=== PATIENT | male | born 1970 | race Caucasian/White ===

== ENCOUNTER → 2017-08-28 16:36 | Outpatient (CLI) | payer OTHER, SELFPAY ==
[2017-08-28 18:01] LABS: Absolute Lymphocyte Count 2.66 X10^3/ul (0.83-4.51); Absolute Neutrophil Count 4.3 X10^3/uL (2.0-7.7); Basophil# 0.05 X10^3/uL; Basophil% 0.6 % (0-1); Eosinophil# 0.11 X10^3/uL; Eosinophils% 1.4 % (0-5); Hematocrit 47.5 % (40-54); Hemoglobin 16.7 g/dl (13.0-16.5); Lymphocyte # 2.66 X10^3/ul (4.0); Lymphocyte % 33.5 % (19-41); Mean Corp Hgb Conc 35.2 g/gl (32-36); Mean Corpuscular Hgb 31.5 pg (27.0-32.0); Mean Corpuscular Volume 89.5 fL (80-94); Mean Platelet Vol. 10.1 fl (6.2-12.0); Monocyte# 0.73 X10^3/uL; Monocyte% 9.2 % (0-10); Neutrophil # 4.34 X10^3/uL (2.7-7.7); Neutrophil % 54.8 % (47-70); POSITIVE COUNT NO; POSITIVE DIFFERENTIAL NO; POSITIVE MORPHOLOGY NO; Platelet Count 275 K/mm3 (150-450); RBC Distribution Width CV 12.5 % (11.6-14.6); RBC Distribution Width SD 41.1 fl (35.1-43.9); Red Blood Count 5.31 M/mm3 (4.6-6.2); White Blood Count 7.9 K/mm3 (4.4-11.0)
[2017-08-28 18:12] LABS: AST(SGOT) 41 U/L (15-37); Alanine Aminotransfer ALT/SGPT 73 U/L (16-61); Albumin, Serum 4.4 g/dL (3.2-5.0); Alkaline Phosphatase 63 U/L (45-117); Anion Gap 10 (5-15); BUN 13 mg/dL (7-18); BUN/Creat Ratio 14.2 RATIO (10-20); Bilirubin, Direct 0.14 mg/dL (0.00-0.30); Chloride 103 mmol/L (98-107); Creatinine, Serum 0.92 mg/dL (0.70-1.30); EST Glomerular Filtration Rate 95 mL/min (>60); Est Glom Filt Rate - Afr Amer 115 mL/min (>60); Globulin 3.5 g/dL (2.2-4.2); Glucose 95 mg/dL (74-106); Potassium 3.6 mmol/L (3.5-5.1); Protein, Total 7.9 g/dL (6.4-8.2); Sodium Level 137 mmol/L (136-145)
[2017-09-03 07:07] LABS: HEPATITIS B SURFACE AG Negative (Negative); QNTFERON TB Ag Minus Nil Value 0 IU/mL (.); QNTFERON TB Ag Value 0.05 IU/mL (.); QNTFERON TB Mitogen Value > 10.00 IU/mL (.); QNTFERON TB Nil Value 0.05 IU/mL (.)
[2017-09-03 09:50] LABS: Hep B Surface Antibodies Non Reactive (.); Hep C Antibodies <0.1 s/co ratio (0.0-0.9); Hepatitis B Core Ab Total Negative (Negative); QNTIFERON TB Gold Negative (Negative)
== END ==
PROVIDERS: Family Provider Family Medicine Geriatric Medicine; PCP Family Medicine Geriatric Medicine; Visit Provider Nurse Practitioner Family
DX: L40.0 Psoriasis vulgaris (principal); Z79.899 Other long term (current) drug therapy
CPT/HCPCS: 36415; 80048; 80076; 85025; 86480; 86704; 86706; 86803; 87340

== ENCOUNTER → 2017-11-18 15:26 | Outpatient (CLI) | payer OTHER, SELFPAY ==
[2017-11-18 18:00] LABS: Absolute Lymphocyte Count 3.76 X10^3/ul (0.83-4.51); Basophil# 0.02 X10^3/uL; Basophil% 0.2 % (0-1); Eosinophil# 0.13 X10^3/uL; Eosinophils% 1.3 % (0-5); Hematocrit 50.2 % (40-54); Hemoglobin 17.6 g/dl (13.0-16.5); Lymphocyte # 3.76 X10^3/ul (4.0); Lymphocyte % 37.9 % (19-41); Mean Corp Hgb Conc 35.1 g/gl (32-36); Mean Corpuscular Hgb 31.8 pg (27.0-32.0); Mean Corpuscular Volume 90.8 fL (80-94); Mean Platelet Vol. 10.3 fl (6.2-12.0); Monocyte# 0.89 X10^3/uL; Neutrophil # 5.02 X10^3/uL (2.7-7.7); Neutrophil % 50.7 % (47-70); Platelet Count 285 K/mm3 (150-450); RBC Distribution Width CV 12.6 % (11.6-14.6); RBC Distribution Width SD 41.9 fl (35.1-43.9); Red Blood Count 5.53 M/mm3 (4.6-6.2); White Blood Count 9.9 K/mm3 (4.4-11.0)
[2017-11-18 18:05] LABS: ALB/GLOB Ratio 1.2 RATIO (0.9-2.4); AST(SGOT) 52 U/L (15-37); Alanine Aminotransfer ALT/SGPT 115 U/L (16-61); Albumin, Serum 4.3 g/dL (3.2-5.0); Alkaline Phosphatase 58 U/L (45-117); Anion Gap 8 (5-15); BUN 19 mg/dL (7-18); BUN/Creat Ratio 17.8 RATIO (10-20); Calcium,Total 8.9 mg/dL (8.5-10.1); Chloride 100 mmol/L (98-107); Creatinine, Serum 1.07 mg/dL (0.70-1.30); EST Glomerular Filtration Rate 79 mL/min (>60); Est Glom Filt Rate - Afr Amer 96 mL/min (>60); Globulin 3.7 g/dL (2.2-4.2); Glucose 98 mg/dL (74-106); Sodium Level 134 mmol/L (136-145); T4 Free Direct 1.26 ng/dL (0.76-1.46); Thyroid Stim Hormone (TSH) 1.74 uIU/mL (0.358-3.74)
[2017-11-18 18:22] LABS: POSITIVE COUNT NO; POSITIVE DIFFERENTIAL NO; POSITIVE MORPHOLOGY NO
== END ==
PROVIDERS: Visit Provider Family Medicine
DX: I10 Essential (primary) hypertension (principal); L40.50 Arthropathic psoriasis, unspecified; E66.01 Morbid (severe) obesity due to excess calories
CPT/HCPCS: 36415; 80053; 84439; 84443; 85025

== ENCOUNTER → 2017-11-27 09:12 | Outpatient (CLI) | payer OTHER, SELFPAY ==
--- NOTE | 2017-11-27 09:14 | US_ITS ---
STUDY: ABDOMINAL ULTRASOUND - RIGHT UPPER QUADRANT REASON FOR VISIT: Male, 47 years old. Elevated liver function tests. TECHNIQUE: Ultrasound evaluation of the right upper quadrant was performed with real-time and static wagner-scale imaging. TECHNICAL QUALITY: Adequate. COMPARISON: None. FINDINGS: Liver: The liver is slightly enlarged and measures 19.6 cm. There is increased echogenicity consistent with fatty infiltration. The bile ducts are within normal limits. There is hepatic color flow. The direction of portal flow is hepatopetal. There is no demonstrated mass lesion. Gallbladder: Normal distended gallbladder. The gallbladder wall measures 3.0 mm. There is a negative sonographic Slaughter's sign. There is no pericholecystic fluid. There are no gallstones. Common Bile Duct (C.B.D.): The common bile duct is not visualized. Pancreas: There is nonvisualization of the pancreas. Right Kidney: Normal size of the right kidney. The right kidney measures 11.0 cm x 5.4 cm x 6.3 cm. Normal renal cortex. The right cortex measures 2.1 cm. There is no demonstrated renal mass or cyst. There is no right hydronephrosis. US/Liver IMPRESSION: Hepatomegaly and fatty infiltration of the liver. Electronically Signed: Benigno Randall MD at 14:34 EDT Tel [phone], Service support ,
== END ==
PROVIDERS: Family Provider Family Medicine; PCP Family Medicine; Visit Provider Family Medicine
DX: R74.8 Abnormal levels of other serum enzymes (principal)
CPT/HCPCS: 76705

== ENCOUNTER → 2018-01-02 20:13 | Outpatient (CLI) | payer OTHER, SELFPAY | PROVIDERS: Family Provider Family Medicine; PCP Family Medicine; Visit Provider Family Medicine | DX: R06.81 Apnea, not elsewhere classified (principal) | CPT/HCPCS: 95810 ==

== ENCOUNTER → 2018-02-20 20:04 | Outpatient (CLI) | payer OTHER, SELFPAY | PROVIDERS: Family Provider Family Medicine; PCP Family Medicine; Visit Provider Clinical Nurse Specialist Acute Care | DX: G47.33 Obstructive sleep apnea (adult) (pediatric) (principal) | CPT/HCPCS: 95811 ==

== ENCOUNTER → 2018-09-19 | Outpatient (CLI) | payer OTHER, SELFPAY ==
[2018-09-19 12:45] LABS: Absolute Lymphocyte Count 2.23 X10^3/ul (0.83-4.51); Absolute Neutrophil Count 3.1 X10^3/uL (2.0-7.7); Basophil# 0.03 X10^3/uL; Basophil% 0.5 % (0-1); Eosinophils% 1.6 % (0-5); Hematocrit 48.3 % (40-54); Hemoglobin 16.5 g/dl (13.0-16.5); Lymphocyte # 2.23 X10^3/ul (4.0); Lymphocyte % 36.4 % (19-41); Mean Corp Hgb Conc 34.2 g/gl (32-36); Mean Corpuscular Hgb 31.1 pg (27.0-32.0); Mean Corpuscular Volume 91.1 fL (80-94); Monocyte# 0.62 X10^3/uL; Monocyte% 10.1 % (0-10); Neutrophil # 3.11 X10^3/uL (2.7-7.7); Neutrophil % 50.7 % (47-70); Platelet Count 285 K/mm3 (150-450); RBC Distribution Width SD 43.4 fl (35.1-43.9); White Blood Count 6.1 K/mm3 (4.4-11.0)
[2018-09-19 12:51] LABS: POSITIVE COUNT NO; POSITIVE DIFFERENTIAL NO; POSITIVE MORPHOLOGY NO
[2018-09-19 13:32] LABS: ALB/GLOB Ratio 1.1 RATIO (0.9-2.4); AST(SGOT) 26 U/L (15-37); Alanine Aminotransfer ALT/SGPT 40 U/L (16-61); Albumin, Serum 4.1 g/dL (3.2-5.0); Alkaline Phosphatase 47 U/L (45-117); Anion Gap 8 (5-15); BUN 22 mg/dL (7-18); BUN/Creat Ratio 20.4 RATIO (10-20); Chloride 104 mmol/L (98-107); Creatinine, Serum 1.08 mg/dL (0.70-1.30); EST Glomerular Filtration Rate 78 mL/min (>60); Est Glom Filt Rate - Afr Amer 94 mL/min (>60); Globulin 3.8 g/dL (2.2-4.2); Glucose 110 mg/dL (74-106); Potassium 4.1 mmol/L (3.5-5.1); Protein, Total 7.9 g/dL (6.4-8.2); Sodium Level 138 mmol/L (136-145); Thyroid Stim Hormone (TSH) 0.69 uIU/mL (0.358-3.74)
== END | disposition home or self-care (01) ==
LOC: BFHLAB 09:00
PROVIDERS: Family Provider Family Medicine; PCP Family Medicine; Visit Provider Family Medicine
DX: R74.8 Abnormal levels of other serum enzymes (principal); I10 Essential (primary) hypertension
CPT/HCPCS: 36415; 80053; 84443; 85025

== ENCOUNTER → 2018-10-01 | Outpatient (CLI) | payer OTHER, SELFPAY ==
--- NOTE | 2018-10-01 13:18 | RAD_ITS ---
STUDY: X-RAY CHEST REASON FOR EXAM: Male, 48 years old. Persistent cough TECHNIQUE: PA and lateral views of the chest. COMPARISON: None. FINDINGS: The lungs are clear and expanded. There is no demonstrated pleural abnormality. Normal size heart. Normal mediastinum and jay. Normal visualized pulmonary arteries. Normal visualized aortic arch and descending thoracic aorta. Normal visualized thoracic spine. Normal visualized ribs, clavicles, and shoulders. There is no demonstrated abnormality of the visualized soft tissue structures of the upper abdomen. RAD/Chest PA and Lateral IMPRESSION: Normal x-ray examination of the chest. Electronically Signed: Maximus Marley MD at 17:24 EDT , Service support ,
[2018-10-04 20:07] LABS: QNTFERON TB Mitogen Value > 10.00 IU/mL (.); QNTFERON TB Nil Value 0.03 IU/mL (.); QNTFERON TB1+ Ag Value 0.03 IU/mL (.); QNTFERON TB2+ Ag Value 0.03 IU/mL (.)
[2018-10-05 14:03] LABS: QNTIFERON TB Positive Criteria Negative (Negative)
== END | disposition home or self-care (01) ==
LOC: MTLAB 13:08
PROVIDERS: Family Provider Family Medicine; PCP Family Medicine; Referring Provider Nurse Practitioner Family; Visit Provider Nurse Practitioner Family
DX: L40.0 Psoriasis vulgaris (principal); Z79.899 Other long term (current) drug therapy
CPT/HCPCS: 36415; 71046; 86480

== ENCOUNTER → 2018-12-02 | Outpatient (CLI) | payer OTHER, SELFPAY ==
[2018-12-02 12:33] LABS: Absolute Lymphocyte Count 1.91 X10^3/uL (0.83-4.51); Absolute Neutrophil Count 2.1 X10^3/uL (2.0-7.7); Basophil# 0.03 X10^3/uL; Basophil% 0.6 % (0-1); Eosinophil# 0.09 X10^3/uL; Eosinophils% 1.9 % (0-5); Hematocrit 46.8 % (40-54); Hemoglobin 15.7 g/dL (13.0-16.5); Lymphocyte # 1.91 X10^3/ul (4.0); Mean Corp Hgb Conc 33.5 g/dL (32-36); Mean Corpuscular Hgb 31.4 pg (27.0-32.0); Mean Corpuscular Volume 93.6 fL (80-94); Mean Platelet Vol. 10.2 fl (6.2-12.0); Monocyte# 0.65 X10^3/uL; Monocyte% 13.6 % (0-10); NRBC Flagged by Analyzer 0 % (0-5); Neutrophil # 2.07 X10^3/uL (2.7-7.7); Neutrophil % 43.5 % (47-70); Platelet Count 225 K/mm3 (150-450); RBC Distribution Width CV 12.6 % (11.6-14.6); RBC Distribution Width SD 43.2 fl (35.1-43.9); White Blood Count 4.8 K/mm3 (4.4-11.0)
[2018-12-02 12:45] LABS: Hemoglobin A1c 5.7 % (4.2-6.3)
[2018-12-02 12:48] LABS: ALB/GLOB Ratio 1.1 RATIO (0.9-2.4); AST(SGOT) 25 U/L (15-37); Alanine Aminotransfer ALT/SGPT 39 U/L (16-61); Albumin, Serum 4.1 g/dL (3.2-5.0); Alkaline Phosphatase 43 U/L (45-117); Anion Gap 6 (5-15); BUN 16 mg/dL (7-18); Chloride 102 mmol/L (98-107); Creatinine, Serum 1.07 mg/dL (0.70-1.30); EST Glomerular Filtration Rate 79 mL/min (>60); Est Glom Filt Rate - Afr Amer 95 mL/min (>60); Globulin 3.6 g/dL (2.2-4.2); Glucose 122 mg/dL (74-106); Potassium 3.8 mmol/L (3.5-5.1); Protein, Total 7.7 g/dL (6.4-8.2); Sodium Level 135 mmol/L (136-145)
== END | disposition home or self-care (01) ==
LOC: BFHLAB 09:48
PROVIDERS: Family Provider Family Medicine; PCP Family Medicine; Visit Provider Family Medicine
DX: R73.01 Impaired fasting glucose (principal); E78.5 Hyperlipidemia, unspecified; R74.8 Abnormal levels of other serum enzymes
CPT/HCPCS: 36415; 80053; 83036; 85025

== ENCOUNTER 2019-06-18 10:00 | Outpatient (RCR) | payer OTHER, SELFPAY ==
--- NOTE | 2019-05-04 09:46 | HP.PTEVAL ---
Patient's Visit Information WILL ARIAS is a 49 year old M referred to Physical Therapy by Markus Ferris MD with a diagnosis of L TKA 04/06/19. Date of Evaluation: 05/04/19 Physical Therapist: Nimesh Winn, DPT, OCS, CSCS - Visit Plan Frequency: 3x /Week Duration: 4-6 Weeks Plan: 3x/week for 4 weeks for: quad and HS stretch adn rollout, patellar mobs L, knee strengthening L and return to function activities and gait/steps. Ice as needed. - Subjective Findings: L TKA Apr 06 4 weeks ago. Went well. Pain level lately 1/10 much better than a few weeks ago. Mostly just stiff in am until get moving around. No AD needed at home, has cane out adn about. Used walker for one week. Had home PT for the last month until last Saturday. Sleeping well. Uncomfy at times with stiffness. Better than prior to surgery. Basic ADLs at home going OK with dressing, bath and toilet. Has not tried steps at home much without cane. Uses cane on steps only at home. 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 Back 2/10 if goes well. Enjoys riding motorcycle and wants to bowl and golf. - Pain L knee Pain Intensity (Out of 10): 0 Pain Intensity Range: 0, 1 Comment: pressure laterally. Has numbness - Objective Walks with and without cane (cane R UE) today I and with good heel strike adn push off adn knee flexion. Slight antalgia without cane after steps. Trasnfers are I with arms of chair. Steps are reciprocal with one rail and worse ecc control on L descending. -2 to 107 L knee AROM to start today vs 0-120 on R. 111 degrees after stretching today. Fair patellar mobility L. Incision healed well and no signs of redness heat or swelling excessively. strength L knee ext adn flexion 4- and R 4+. HS and quad tight B L knee 3 inches from buttock on L and 1 inch on R in prone. Sensation diminished lateral L knee to gross light touch. - Balance Scores Functional Gait Assessment Score: 27 % Disability: 10.0000 - Goals Goal 1:: Walk community without antalgia or need for cane. Goal Time Frame: 4-6 Weeks Goal 2:: Steps reciprocal without rail without signs of weakness. Goal Time Frame: 4-6 Weeks Goal 3:: 0-120 aROM L knee to make steps more comfortable Goal Time Frame: 4-6 Weeks Goal 4:: Pt ready to go back to work withou limitations Goal Time Frame: 4-6 Weeks Goal 5:: Plan to return to bowling. Goal Time Frame: 4-6 Weeks - Rehabilitation Potential Physical Therapy Diagnosis: s/p L TKA Rehabilitation Potential: Good - Anticipated Interventions Patient/Client Instruction: Educate patient on: Condition, Plan of Care For the Purpose of:: To decrease pain, To increase ROM, To improve muscle performance and motor function, To increase tolerance to activity/condition/position, To improve gait and locomotor functions Therapeutic Exercise to Include: Strength training, Flexibilty training, Gait and locomotor training, Passive ROM, Active ROM For the Purpose of:: To decrease pain, To increase ROM, To improve muscle performance and motor function, To increase tolerance to activity/condition/position, To improve ability of physical actions for home/community/work/leisure, To improve gait and locomotor functions Manual Therapy Techniques to Include: Mobilization, Soft tissue mobilization For the Purpose of:: To increase ROM Cryotherapy (ice pack, ice massage): Yes For the Purpose of:: To decrease swelling/inflammation Thank you for the opportunity to evaluate your patient. For Medicare and Medicare HMO plans, please review the plan of care and approve it. It will need to be FAXED BACK to us at [phone] for Medicare purposes. For Medicare only, by signing this I certify the plan of care. Please let me know if there are questions or concerns regarding this plan of care. Physician Signature: Date:
--- NOTE | 2019-06-18 10:12 | HP.PTDCSUM_ITS ---
HP - PT D/C Summary It has been my pleasure to treat WILL ARIAS under orders from Markus Ferris MD, for the diagnosis of L TKA 04/06/19 for a total of 16 visit(s). Discharge Date: 06/18/19 Please see the following information for a summary of their discharge status. - Subjective Subjective: No problem with pain, Sleeping OK. Exercises are going OK. Going to [employer] 3x/week and riding bike daily for 18+ minutes. Saw doctor Saturday and released to work next saturday. Activities at home are pretty normal. - Pain L knee Pain Intensity (Out of 10): 0 - Overall Improvement % Improvement: 90 - Objective Objective/Function: 0-122 PROM, 0-120 aROM L knee. Good patellar mobility. Normal walking and normal reciprocal steps without rail with some slight t ransient discomfort descending with L. OVERALL LOOKING GREAT. - Goals Goal 1:: Walk community without antalgia or need for cane. Goal Progress: Goal Met Goal 2:: Steps reciprocal without rail without signs of weakness. Goal Progress: Goal Met Goal 3:: 0-120 aROM L knee to make steps more comfortable Goal Progress: Goal Met Goal 4:: Pt ready to go back to work withou limitations Goal Progress: Goal Met Goal 5:: Plan to return to bowling. Goal Progress: thinks he could - Plan Plan: d/c - D/C Information If there are questions or concerns regarding this patient's physical therapy, please feel free to call me at [phone]. Thank you for the referral of this patient. Sincerely, Nimesh Winn, DPT, OCS, CSCS
== END 2019-06-18 19:00 | disposition home or self-care (01) ==
LOC: PT 10:00
PROVIDERS: Family Provider Family Medicine; PCP Family Medicine; Referring Provider Orthopaedic Surgery; Visit Provider Orthopaedic Surgery
DX: M17.12 Unilateral primary osteoarthritis, left knee (principal); Z96.652 Presence of left artificial knee joint
CPT/HCPCS: 97110; 97162; 97164; 97530

== ENCOUNTER → 2020-05-16 11:38 | Outpatient (CLI) | payer OTHER, SELFPAY ==
[2020-05-16 15:49] LABS: Absolute Lymphocyte Count 2.17 X10^3/uL (0.83-4.51); Absolute Neutrophil Count 3.3 X10^3/uL (2.0-7.7); Basophil# 0.06 X10^3/uL; Eosinophil# 0.09 X10^3/uL; Eosinophils% 1.5 % (0-5); Hemoglobin 16.8 g/dL (13.0-16.5); Lymphocyte # 2.17 X10^3/ul (4.0); Lymphocyte % 35.1 % (19-41); Mean Corp Hgb Conc 32.9 g/dL (32-36); Mean Corpuscular Hgb 30.9 pg (27.0-32.0); Mean Corpuscular Volume 93.9 fL (80-94); Mean Platelet Vol. 10.2 fl (6.2-12.0); Monocyte# 0.58 X10^3/uL; Monocyte% 9.4 % (0-10); NRBC Flagged by Analyzer 0 % (0-5); Neutrophil # 3.26 X10^3/uL (2.7-7.7); Neutrophil % 52.7 % (47-70); Platelet Count 294 K/mm3 (150-450); RBC Distribution Width CV 12.7 % (11.6-14.6); RBC Distribution Width SD 43.8 fl (35.1-43.9); Red Blood Count 5.43 M/mm3 (4.6-6.2); White Blood Count 6.2 K/mm3 (4.4-11.0)
[2020-05-16 16:10] LABS: ALB/GLOB Ratio 1.1 RATIO (0.9-2.4); AST(SGOT) 31 U/L (15-37); Alanine Aminotransfer ALT/SGPT 57 U/L (16-61); Albumin, Serum 4.2 g/dL (3.2-5.0); Alkaline Phosphatase 49 U/L (45-117); Anion Gap 5 (5-15); BUN 12 mg/dL (7-18); BUN/Creat Ratio 10.6 RATIO (10-20); Calcium,Total 9.2 mg/dL (8.5-10.1); Chloride 103 mmol/L (98-107); Cholesterol 187 mg/dL (200); Creatinine, Serum 1.13 mg/dL (0.70-1.30); EST Glomerular Filtration Rate 74 mL/min (>60); Est Glom Filt Rate - Afr Amer 89 mL/min (>60); Globulin 3.8 g/dL (2.2-4.2); Glucose 109 mg/dL (74-106); High Density Lipoprotein 36 mg/dL; Potassium 4.2 mmol/L (3.5-5.1); Sodium Level 138 mmol/L (136-145); Thyroid Stim Hormone (TSH) 0.72 uIU/mL (0.358-3.74); Triglycerides 200 mg/dL; Very Low Density Lipoprotein 40 mg/dL (5-40)
== END ==
PROVIDERS: PCP Family Medicine; Visit Provider Family Medicine
DX: R74.8 Abnormal levels of other serum enzymes (principal); I10 Essential (primary) hypertension; R73.01 Impaired fasting glucose; F32.9 Major depressive disorder, single episode, unspecified
CPT/HCPCS: 36415; 80053; 80061; 83036; 84443; 85025

== ENCOUNTER → 2021-09-13 | Outpatient (CLI) | payer OTHER, SELFPAY ==
--- NOTE | 2021-09-13 12:51 | STEWCON_ITS ---
Reason For Study: Chest Pain; HTN Stress Results Protocol: Digeo Protocol WITH DEFINITY Maximum Predicted HR: 171 bpm Target HR: 145 bpm % Maximum Predicted HR: 89 % DurationHeart Rate Stage (mm:ss) (bpm) BP Comment Baseline 58 118/88No Chest Pain; 4 ML Diluted Definity Diego Protocol Stage I 3:00 94 130/84No Chest Pain Diego Protocol Stage II 3:00 116 144/78No Chest Pain Diego Protocol Stage III 3:00 151 160/74No Chest Pain; Moderate Dyspnea Diego Protocol Stage IV 0:15 153 / No Chest Pain; Moderate Dyspnea Recovery 96 128/90No Chest Pain; No Dyspnea Stress Duration: 9:15 mm:ss Maximum Stress HR: 153 bpm METS: 10 Baseline Echocardiogram Findings Stress Echo Wall motion Data Resting WM Intermediate WM Stress WM Resting Wall Motion Wall Motion Stress All segments Normal. All segments Hyperkinetic. Ejection Fraction 60 %. Ejection Fraction 70 %. Stress Results Heart rate response: Technically adequate (greater than 85% predicted maximal heart rate response) Blood pressure response: Normal resting systolic blood pressure-appropriate response Cardiac rhythm: There was a rare PAC during recovery Functional capacity: Good Stopped secondary to: Dyspnea. EKG Data Baseline ECG: Sinus bradycardia. Peak exercise ECG: Somatic/motion artifact with no obvious ECG changes. Symptoms with Stress No report of chest discomfort during exercise or recovery. ECHO/Stress Test Echo W/Contrast Interpretation Summary Contrast injection performed Negative (adequate) stress echocardiogram Ordering Physician: Yahaira Villela Referring Physician: Yahaira Villela Performed By: Matt Marcelo RCS
== END | disposition home or self-care (01) ==
PROVIDERS: PCP Family Medicine; Visit Provider Family Medicine
DX: R07.9 Chest pain, unspecified (principal)
CPT/HCPCS: 93017; 93350; Q9957; A4216; C8928

== ENCOUNTER → 2022-02-23 | Outpatient (CLI) | payer OTHER, SELFPAY ==
[2022-02-23 12:13] LABS: Absolute Lymphocyte Count 1.92 X10^3/uL (0.83-4.51); Basophil# 0.06 X10^3/uL; Basophil% 1.1 % (0-1); Eosinophil# 0.08 X10^3/uL; Eosinophils% 1.4 % (0-5); Hematocrit 46.8 % (40-54); Hemoglobin 16.2 g/dL (13.0-16.5); Lymphocyte # 1.92 X10^3/ul (0.83-4.51); Lymphocyte % 33.9 % (19-41); Mean Corp Hgb Conc 34.6 g/dL (32-36); Mean Corpuscular Hgb 31.8 pg (27.0-32.0); Mean Corpuscular Volume 91.9 fL (80-94); Mean Platelet Vol. 9.9 fl (6.2-12.0); Monocyte# 0.63 X10^3/uL; Monocyte% 11.1 % (0-10); NRBC Flagged by Analyzer 0 % (0-5); Neutrophil # 2.95 X10^3/uL (2.7-7.7); Neutrophil % 52.1 % (47-70); Platelet Count 284 K/mm3 (150-450); RBC Distribution Width CV 12.1 % (11.6-14.6); RBC Distribution Width SD 41.3 fl (35.1-43.9); Red Blood Count 5.09 M/mm3 (4.6-6.2); White Blood Count 5.7 K/mm3 (4.4-11.0)
[2022-02-23 12:17] LABS: ALB/GLOB Ratio 1.1 RATIO (0.9-2.4); AST(SGOT) 39 U/L (15-37); Alanine Aminotransfer ALT/SGPT 72 U/L (16-61); Alkaline Phosphatase 57 U/L (45-117); Anion Gap 6 (5-15); BUN 15 mg/dL (7-18); BUN/Creat Ratio 15.5 RATIO (10-20); Calcium,Total 8.9 mg/dL (8.5-10.1); Chloride 102 mmol/L (98-107); Creatinine, Serum 0.97 mg/dL (0.70-1.30); EST Glomerular Filtration Rate 87 mL/min (>60); Est Glom Filt Rate - Afr Amer 106 mL/min (>60); Globulin 3.5 g/dL (2.2-4.2); Glucose 126 mg/dL (74-106); Protein, Total 7.5 g/dL (6.4-8.2); Sodium Level 135 mmol/L (136-145); Thyroid Stim Hormone (TSH) 0.72 uIU/mL (0.358-3.74)
== END | disposition home or self-care (01) ==
LOC: BFHLAB 09:31
PROVIDERS: PCP Family Medicine; Visit Provider Family Medicine
DX: I10 Essential (primary) hypertension (principal); R74.8 Abnormal levels of other serum enzymes; F41.9 Anxiety disorder, unspecified
CPT/HCPCS: 36415; 80053; 84443; 85025

== ENCOUNTER → 2022-05-28 | Outpatient (CLI) | payer OTHER, SELFPAY ==
[2022-05-28 12:16] LABS: Absolute Lymphocyte Count 2.09 X10^3/uL (0.83-4.51); Absolute Neutrophil Count 3.5 X10^3/uL (2.0-7.7); Basophil# 0.06 X10^3/uL; Basophil% 0.9 % (0-1); Eosinophil# 0.11 X10^3/uL; Eosinophils% 1.7 % (0-5); Hematocrit 46.7 % (40-54); Hemoglobin 16.2 g/dL (13.0-16.5); Lymphocyte # 2.09 X10^3/ul (0.83-4.51); Lymphocyte % 32.2 % (19-41); Mean Corp Hgb Conc 34.7 g/dL (32-36); Mean Corpuscular Hgb 31.7 pg (27.0-32.0); Mean Corpuscular Volume 91.4 fL (80-94); Mean Platelet Vol. 9.7 fl (6.2-12.0); Monocyte# 0.68 X10^3/uL; Monocyte% 10.5 % (0-10); NRBC Flagged by Analyzer 0 % (0-5); Neutrophil # 3.53 X10^3/uL (2.7-7.7); Neutrophil % 54.2 % (47-70); Platelet Count 308 K/mm3 (150-450); RBC Distribution Width CV 12.4 % (11.6-14.6); Red Blood Count 5.11 M/mm3 (4.6-6.2); White Blood Count 6.5 K/mm3 (4.4-11.0)
[2022-05-28 12:47] LABS: Hemoglobin A1c 5.9 % (3.8-5.6)
[2022-05-28 13:10] LABS: ALB/GLOB Ratio 1.1 RATIO (0.9-2.4); AST(SGOT) 27 U/L (15-37); Alanine Aminotransfer ALT/SGPT 58 U/L (16-61); Albumin, Serum 3.8 g/dL (3.2-5.0); Alkaline Phosphatase 62 U/L (45-117); Anion Gap 9 (5-15); BUN 16 mg/dL (7-18); BUN/Creat Ratio 16.7 RATIO (10-20); Calcium,Total 8.6 mg/dL (8.5-10.1); Chloride 101 mmol/L (98-107); Cholesterol 180 mg/dL (200); Creatinine, Serum 0.96 mg/dL (0.70-1.30); EST Glomerular Filtration Rate 88 mL/min (>60); Est Glom Filt Rate - Afr Amer 107 mL/min (>60); Globulin 3.5 g/dL (2.2-4.2); Glucose 137 mg/dL (74-106); High Density Lipoprotein 31 mg/dL; Potassium 4.3 mmol/L (3.5-5.1); Protein, Total 7.3 g/dL (6.4-8.2); Sodium Level 137 mmol/L (136-145); Thyroid Stim Hormone (TSH) 0.83 uIU/mL (0.358-3.74); Triglycerides 254 mg/dL; Very Low Density Lipoprotein 51 mg/dL (5-40)
== END | disposition home or self-care (01) ==
LOC: BFHLAB 08:24
PROVIDERS: PCP Family Medicine; Visit Provider Family Medicine
DX: R73.01 Impaired fasting glucose (principal); E66.01 Morbid (severe) obesity due to excess calories; I10 Essential (primary) hypertension; R74.8 Abnormal levels of other serum enzymes; E78.5 Hyperlipidemia, unspecified
CPT/HCPCS: 36415; 80053; 80061; 83036; 84443; 85025

== ENCOUNTER → 2022-09-19 | Outpatient (CLI) | payer OTHER, SELFPAY ==
[2022-09-19 12:52] LABS: Anion Gap 8 (5-15); BUN 12 mg/dL (7-18); BUN/Creat Ratio 13.1 RATIO (10-20); Calcium,Total 9.2 mg/dL (8.5-10.1); Chloride 105 mmol/L (98-107); Creatinine, Serum 0.92 mg/dL (0.70-1.30); EST Glomerular Filtration Rate 93 mL/min (>60); Est Glom Filt Rate - Afr Amer 112 mL/min (>60); Glucose 106 mg/dL (74-106); Potassium 4.4 mmol/L (3.5-5.1); Sodium Level 137 mmol/L (136-145)
== END | disposition home or self-care (01) ==
LOC: BIMLAB 09-26 17:26
PROVIDERS: PCP Internal Medicine; Referring Provider Internal Medicine; Visit Provider Internal Medicine
DX: Z00.00 Encounter for general adult medical examination without abnormal findings (principal); I10 Essential (primary) hypertension
CPT/HCPCS: 36415; 80048; 84153; G0103

== ENCOUNTER → 2023-01-04 | Outpatient (CLI) | payer OTHER, SELFPAY ==
[2023-01-04 12:50] LABS: Anion Gap 4 (5-15); BUN 15 mg/dL (7-18); BUN/Creat Ratio 14.9 RATIO (10-20); Calcium,Total 9.2 mg/dL (8.5-10.1); Chloride 103 mmol/L (98-107); Creatinine, Serum 1.01 mg/dL (0.70-1.30); EST Glomerular Filtration Rate 83 mL/min (>60); Est Glom Filt Rate - Afr Amer 100 mL/min (>60); Glucose 123 mg/dL (74-106); Potassium 3.9 mmol/L (3.5-5.1); Sodium Level 134 mmol/L (136-145)
== END | disposition home or self-care (01) ==
LOC: BIMLAB 10:48
PROVIDERS: PCP Internal Medicine; Visit Provider Internal Medicine
DX: I10 Essential (primary) hypertension (principal); R73.03 Prediabetes
CPT/HCPCS: 36415; 80048; 83036

== ENCOUNTER 2023-04-10 16:30 | Outpatient (RCR) | payer OTHER, SELFPAY ==
--- NOTE | 2023-02-28 18:08 | HP.PTEVAL ---
Patient's Visit Information Visit Information Visit Information: WILL ARIAS is a 53 year old M referred to Physical Therapy by FANY WEBB with a diagnosis of LUMBAR SPONDYLOSIS. Date of Evaluation: 02/28/23 Physical Therapist: Dinesh Jones, PT, Cert MDT, OCS Visit Plan Frequency: 2x /Week Duration: 4 Weeks Plan: PT INTERVENTIONS OUSMANE EX'S ,DLS ,POSTURAL EX'S ,MANUAL THERAPY ,ADN MODALTIES PRN Subjective Subjective: This 53 y/o male presents to physical therapy with lumbar pain. Patient has had lumbar pain for~ 5 years left side to LS. Patient seen [facility] recommended PT ,did lumbar spondylosis and hip DJD. During day better but as day goes away and end of day. Aggravating sitting harder chair ,standing extended distances , walking ,lifting heavier and bending . Alleviating factors rest and ice. Denies paresthesia/tingling-. Coughing/sneezing-. Bowel/bladder-. Patient sleeping good. Patient seen chiropractor 2 months ago. Tried massage. No Injury and no trauma. Patient pain affects QOL and function. Patient has h/o left TKR . Patient goal to have less pain. 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 Left Back: Pain Intensity (Out of 10): 5 Pain Intensity Range: 10 Objective Objective: POSTURE: mild forward posture GAIT: reciprocal pattern NEURO: denies paresthesia/tingling ,reflexes L3-4 ,L4-5,L5-S1 1/3 SYMMTRIES: align PLAPTION: TTP LEFT LS FLEXABILITY: hamstrings min tight LUMBAR ROM: flexion min loss ,extension min loss ,side glides min loss MMT: quads/hams 4/5 ,hip 4/5 ,ankle 5/5 Special Tests L/S Slump test left side: Negative L/S Slump test right side: Negative L/S Left Straight Leg Raise: Negative L/S Right Straight Leg Raise: Negative Lumbar Standing: Flexion - Mechanical Response: No effect Lumbar Standing: Flexion - Symptoms During Testing: Increases Lumbar Standing: Flexion - Symptoms After Testing: No worse Lumbar Standing: Extension - Mechanical Response: No effect Lumbar Standing: Extension - Symptoms During Testing: Increases Lumbar Standing: Extension - Symptoms After Testing: No worse Lumbar Standing: Right Side Glides - Mechanical Response: No effect Lumbar Standing: Right Side Wink - Symptoms During Testing: No effect Lumbar Standing: Right Side Wink - Symptoms After Testing: No effect Lumbar Standing: Left Side Wink - Mechanical Response: No effect Lumbar Standing: Left Side Wink - Symptoms During Testing: No effect Lumbar Standing: Left Side Wink - Symptoms After Testing: No effect Lumbar Lying: Flexion - Mechanical Response: No effect Lumbar Lying: Flexion - Symptoms During Testing: Increases Lumbar Lying: Flexion - Symptoms After Testing: No worse Lumbar Lying: Extension - Mechanical Response: Increases motion Lumbar Lying: Extension - Symptoms During Testing: Centralizing Lumbar Lying: Extension - Symptoms After Testing: Better Comments:: better Balance/Special Test Scores Oswestry Low Back Score: 24 Goals Goal 1:: Patient to be I with HEP for lumbar Goal Time Frame: 4-6 Weeks Goal 2:: Patient to improve posture/body mechanics 90% Goal Time Frame: 4-6 Weeks Goal 3:: Patient to demonstrate 50% improvement with decrease pain and improved function. Goal Time Frame: 4-6 Weeks Goal 4:: Patient to improve lumbar ROM for function of recovery for job demands Goal Time Frame: 4-6 Weeks Goal 5:: Patient to improve back oswestry score by 5 points to improve function Goal Time Frame: 4-6 Weeks Rehabilitation Potential Physical Therapy Diagnosis: This patient has possible lumbar derangement with disc asymmetrical with pain with motion and positioning along with bending and lifting thus will benefit from skilled PT Rehabilitation Potential: Good Anticipated Interventions Patient/Client Instruction: Educate patient on: Condition and Plan of Care For the Purpose of:: To decrease pain, To increase ROM, To improve muscle performance and motor function, To improve ability to perform ADL's, To increase tolerance to activity/condition/position, To improve ability of physical actions for home/community/work/leisure, To improve health of tissue, To decrease soft tissue restriction, To increase flexibility/ROM, To prevent re-injury and To improve tolerance to ADL's Therapeutic Exercise to Include: Strength training, Body mechanics, Postural training, Flexibilty training, Dynamic Lumbar Stabilization and Ousmane Exercises For the Purpose of:: To decrease pain, To increase ROM, To improve nutrient delivery to tissue, To increase oxygenation perfusion, To improve muscle performance and motor function, To increase tolerance to activity/condition/position, To improve ability of physical actions for home/community/work/leisure, To improve health of tissue and To decrease soft tissue restriction Manual Therapy Techniques to Include: Mobilization Comment: LUMBAR For the Purpose of:: To decrease pain, To increase ROM, To improve health of tissue, To decrease soft tissue restriction and To increase flexibility/ROM TENS: Yes IF ES: Yes Cryotherapy (ice pack, ice massage): Yes Thermo therapy (hot pack): Yes Ultrasound (thermal/non thermal): Yes For the Purpose of:: To decrease pain, To increase ROM, To improve health of tissue and To decrease soft tissue restriction Text: Thank you for the opportunity to evaluate your patient. For Medicare and Medicare HMO plans, please review the plan of care and approve it. It will need to be FAXED BACK to us at [phone] for Medicare purposes. For Medicare only, by signing this I certify the plan of care. Please let me know if there are questions or concerns regarding this plan of care. Physician Signature: Date:
--- NOTE | 2023-04-25 12:29 | HP.PTDCSUM ---
Discharge Summary D/C summary: It has been my pleasure to treat WILL ARIAS referred by FANY WEBB, with the diagnosis of LUMBAR SPONDYLOSIS for a total of 11 visit(s). Discharge Date: Please see the following information for a summary of their discharge status. Subjective Subjective: Plan to See Dr Saturday Patient was on feet extended periods left LS occasional lateral hip Pain Left Back: Pain Intensity (Out of 10): 4 Overall Improvement % Improvement: 60 Objective Objective/Function: POSTURE: forward posture hips/knees flexed ,asymmetries pelvis GAIT: reciprocal pattern with 2 point with cane mild foreward posture NEURO: denies paresthesia/tingling ,reflexes L3-4 ,L4-5 ,L5-S1 1/3 MMT: quads/hams /hip peak force ~ 5.2,ankle 4-/5 LUMABR ROM: flexion min/mod loss ,extension mod ,side glides min/mod loss all planes of motion FLEXABILITY: hamstrings mod loss THORACIC ROM: flexion mod loss loss ,extension severe loss ,rotation mod loss Goals Goal 1:: Patient to be I with HEP for lumbar Goal 2:: Patient to improve posture/body mechanics 90% Goal 3:: Patient to demonstrate 50% improvement with decrease pain and improved function. Goal 4:: Patient to improve lumbar ROM for function of recovery for job demands Goal 5:: Patient to improve back oswestry score by 5 points to improve function Plan Plan: RTD D/C Information d/c sentence: If there are questions or concerns regarding this patient's physical therapy, please feel free to call me at [phone]. Thank you for the referral of this patient. Sincerely, Dinesh Jones, PT, Cert MDT, OCS Balance/Gait/Functional tests Balance/Special Test Scores Oswestry Low Back Score: 24 Improvement % Improvement: 60
== END 2023-04-10 19:00 | disposition home or self-care (01) ==
LOC: PT 16:30
PROVIDERS: PCP Internal Medicine
DX: M47.816 Spondylosis without myelopathy or radiculopathy, lumbar region (principal)
CPT/HCPCS: 97014; 97110; 97162; 97530; G0283

== ENCOUNTER → 2023-05-02 | Outpatient (CLI) | payer OTHER, SELFPAY ==
--- OUTSIDE RECORDS SUMMARY | 2023-05-02 10:30 | XMS RPT_ITS | CCD ---
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 Name Role Phone Wayne Ramírez Primary Care Provider ANUPAMA HARDY MD Primary Care Physician [phone] DR RASHID MCCARTNEY DO Attending Unavailable ANUPAMA HARDY MD Primary Care Unavailable Medications Current Medications Medication Drug Class(es) Dates Sig (Normalized) Sig (Original) Humira (1 source) Tumor Necrosis Factor Dilshad Start: 10-31-2017 inject 1 dose by subcutaneous injection once Humira Dose : 40 mg =, Subcutaneous, Once, 0 Refill(s) Start Date: 10/31/17 Status: Ordered cephalexin 500 mg oral capsule (1 source) Cephalosporin Antibacterial Start: 10-17-2022 End: 10-22-2022 cephalexin 500 mg oral capsule Dose : 500 mg = 1 cap(s), Oral, TID, Take with a probiotic, X 5 day(s), # 15 cap(s), 0 Refill(s), 10/22/22 20:27:00 EDT, 127.3 Start Date: 10/17/22 Stop Date: 10/22/22 Status: Ordered hydroCHLOROthiazide 12.5 mg / lisinopril 20 mg oral tablet (1 source) Thiazide Diuretic, Angiotensin Converting Enzyme Inhibitor Start: 04-19-2019 hydrochlorothia zide-lisinopril 12.5 mg-20 mg oral tablet 0 Refill(s) Start Date: 04/19/19 Status: Ordered lisinopril 20 mg oral tablet (1 source) Angiotensin Converting Enzyme Inhibitor Start: 10-31-2017 lisinopril 20 mg oral tablet Dose : 20 mg = 1 tab(s), Oral, qDay, # 30 tab(s), 0 Refill(s) Start Date: 10/31/17 Status: Ordered modafinil 100 mg oral tablet (1 source) Sympathomimetic-lik e Agent Start: 04-19-2019 modafinil 100 mg oral tablet 0 Refill(s) Start Date: 04/19/19 Status: Ordered naproxen 500 mg oral tablet (1 source) Nonsteroidal Anti-inflammatory Drug Start: 10-31-2017 Naprosyn 500 mg oral tablet Dose : 500 mg = 1 tab(s), Oral, BID, PRN as needed for pain, # 20 tab(s), 0 Refill(s) Start Date: 10/31/17 Status: Ordered PARoxetine hydrochloride 20 mg oral tablet (1 source) Serotonin Reuptake Inhibitor Start: 04-19-2019 PARoxetine 20 mg oral tablet 0 Refill(s) Start Date: 04/19/19 Status: Ordered temazepam 15 mg oral capsule (1 source) Benzodiazepine Start: 04-19-2019 temazepam 15 mg oral capsule 0 Refill(s) Start Date: 04/19/19 Status: Ordered traMADol hydrochloride 50 mg oral tablet (1 source) Opioid Agonist Start: 04-19-2019 traMADol 50 mg oral tablet 0 Refill(s) Start Date: 04/19/19 Status: Ordered Problems Problem Classification Problem Date Documented Da te Episodic/Chronic Essential hypertension (1 source) Hypertensive disorder 10-31-2017 Chronic Osteoarthritis (1 source) Arthritis 10-31-2017 Chronic Results Test Name Value Interpretation Reference Range Facil ity Vital Signs Date Time Vital Sign Value Performing Clinician Loretta adams 10-17-2022 20:10-[address] Blood Pressure Cuff Size DR RASHID MCCARTNEY DO [facility] 10-17-2022 20:10-[address] RASHID MCCARTNEY DO [facility] 10-17-2022 20:10-[address] RASHID MCCARTNEY DO [facility] 10-17-2022 20:10-0400 Body height 180.[address] RASHID MCCARTNEY DO [facility] 10-17-2022 20:10-0400 Body temperature 98.78 [degF] DR RASHID MCCARTNEY DO [facility] 10-17-2022 20:10-0400 Body weight 127.[address] RASHID MCCARTNEY DO [facility] 10-17-2022 20:10-0400 Diastolic Blood Pressure Non-Invasive [address] RASHID MCCARTNEY DO [facility] 10-17-2022 20:10-0400 Heart rate 90 /min DR RASHID MCCARTNEY DO [facility] 10-17-2022 20:10-0400 Respiratory rate 16 /min DR RASHID MCCARTNEY DO [facility] 10-17-2022 20:10-0400 Systolic Blood Pressure Non-Invasive [address] RASHID MCCARTNEY DO [facility] Encounters Encounter Date Encounter Type Care Provider Facility Start: 10-17-2022 End: 10-17-2022 Emergency department patient visit DR RASHID MCCARTNEY DO Facility:[facility] Start: 10-17-2022 End: 10-17-2022 Emergency department patient visit DR RASHID MCCARTNEY DO [facility] Start: 03-13-2019 End: 03-13-2019 Subsequent hospital visit by physician Markus Ferris Work Phone: [facility] CT SCAN Procedures Date Procedure Procedure Detail Performing Clinician Start: 03-13-2019 Ct lower extremity w /o contrast material Markus Ferris Work Phone: Knee region structur e (body structure) DR RASHID MCCARTNEY DO Plan of Treatment Date Care Activity Detail Author Start: 12-28-2018 Influenza vaccination Flu vaccine (# 1) [place], [place] Start: 2012 Lipid screen Lipid screen [place], [place] Start: 01-01-1987 HIV screen HIV screen [place], [place] Start: 01-01-1983 DTaP/Tdap/Td vaccine (1 - Tdap) DTaP/Tdap/Td vaccine (1 - Tdap) [place], [place] Immunizations Immunization Date Immunization Notes Care Provider Flakito friend 10-17-2022 tetanus toxoid, redu brenna diphtheria toxoid, and acellular pertussis vaccine, adsorbed DR RASHID MCCARTNEY DO [facility] Payers Date Payer Category Payer Unknown [id number] 1970 Unknown [id number] Social History Date Type Detail Facility Tobacco smoking status NHIS Unknown if ev er smoked [place], [place] Sex Assigned At Not on file [place] Tobacco smoking status Never smo ked tobacco (finding) [facility] Sex Assigned At Sex [facility] Functional Status Date Assessment Result Facility 10-17-2022 Functional Status Activity Prosperobi gann Independent [facility] Mental Status Date Assessment Result Facility 10-17-2022 Mental Status Orientation Oriented x 4 [facility] Discharge instructions 10-17-2022 Note Date & Type Note Facility 10-17-2022 Hospital Discharg e instructions Patient Education 10/17/2022 20:27:22 Wound Care Wound Care Taking proper care of your wound will help it heal. Your healthcare provider may show you how to clean and dress the wound. He or she will also explain how to tell if the wound is healing normally. If you are unsure of how to take care of the wound, be sure to clarify what dressing to use and how often you should change the bandages. Here are the basic steps. A wound that's not healing normally may be dark in color or have white streaks. Wash your hands Tips for washing your hands include: Use liquid soap and lather for 2 minutes. Scrub between your fingers and under your nails. Rinse with warm water, keeping your fingers pointing down. Use a paper towel to dry your hands and to turn off the faucet. Remove the used dressing Here are suggestions for removing the dressing: If dressing changes cause you pain, be sure to take your pain medicine as prescribed by your healthcare provider 30 minutes before dressing changes. Set up your supplies. Put on disposable gloves if you re dressing a wound for someone else or your wound is infected. Loosen the tape by pulling gently toward the wound. Gently take off the old dressing. If the dressing is stuck to the wound, moisten it with saline (if available) or clean water. If you have a drain or tube in the wound, be careful not to pull on it. Remove the dressing 1 layer at a time and put it in a plastic bag. Seal the bag and put it in the trash. Remove your gloves. Inspect and dress the wound Check the wound carefully: Each time you change the dressing, check the wound carefully to be sure it s healing normally by making sure your wound appears to be pink and moist, and is free of infection. Wash your hands again. Put on a new pair of gloves. Clean and dress the wound as directed by your healthcare provider or nurse. Don't put anything in the wound that is not prescribed or directed by your healthcare provider. If you have a drain or tube, be careful not to pull on it. Make sure to secure the drain or tube as well. Put all unused supplies in a clean plastic bag. Seal the bag and store it in a clean, dry area between dressing changes. Be sure to wash your hands again. Call your healthcare provider Call your healthcare provider if you see any of the following signs of a problem: Bleeding that soaks the dressing Horton fluid weeping from the wound Increased drainage or drainage that is yellow, yellow-green, or foul-smelling Increased swelling or pain, or redness or swelling in the skin around the wound A change in the color of the wound, or if streaks develop in a direction away from the wound The area between any stitches opens up An increase in the size of the wound A fever of 100.4 F (38 C) or higher, or as directed by your healthcare provider Chills, increased fatigue, or a loss of appetite [id number] [employer]. [address] [place] [address]18. All rights reserved. This information is not intended as a substitute for professional medical care. Always follow your healthcare professional's instructions. Follow Up Care 10/17/2022 20:09:50 With:ANUPAMA HARDY MD Address: [address] [place] [id number]- When:2-4 days [facility] Clinical Note 10-17-2022 Note Date & Type Note Facility 10-17-2022 Note Discharge Instructions Thank you for allowing [facility] to assist you with your healthcare needs. The following is important discharge information regarding your hospital visit. Diagnosis from Today's Visit Finger injury - Minor What to Do Next Instructions from Your Care Team No qualifying data available. Post Acute Orders No qualifying data available. You Need to Schedule the Following Appointments Follow Up with ANUPAMA HARDY MD When Within 2-4 days Where: [address] [place] [id number]- Allergies NKA Medications Please ask your primary doctor or pharmacist before taking any other medication not listed, including over the counter drugs, herbal medications, vitamins and or supplements as they may interact with your home medications. What How Much When Instructions Last Dose New cephalexin (cephalexin 500 mg oral capsule) 1 cap by mouth Three (3) times a day Duration: 5 Days Take with a probiotic Printed Prescription Unchanged adalimumab (Humira) 40 Milligram Subcutaneous Once Unchanged hydrochlorothiazide-lisinopril (hydrochlorothiazide-lisinopril 12.5 mg-20 mg oral tablet) Unchanged lisinopril (lisinopril 20 mg oral tablet) 1 tab(s) by mouth Once a day Unchanged modafinil (modafinil 100 mg oral tablet) Unchanged naproxen (Naprosyn 500 mg oral tablet) 1 tab(s) by mouth Two (2) times a day as needed for as needed for pain Unchanged PARoxetine (PARoxetine 20 mg oral tablet) Unchanged temazepam (temazepam 15 mg oral capsule) Unchanged traMADol (traMADol 50 mg oral tablet) Please take this list to your next doctor s visit. Bring all medications you take, including over the counter medications, herbals and other supplements with you to your doctor s visit. Patients and families are reminded to discard old lists and to update any records with all medication providers or retail pharmacies. Medication Leaflets cephalexin (sef a KRYSTEN in) Keflex What is the most important information I should know about cephalexin? You should not use this medicine if you are allergic to cephalexin or to similar antibiotics, such as Ceftin, Cefzil, Omnicef, and others. Tell your doctor if you are allergic to any drugs, especially penicillins or other antibiotics. What is cephalexin? Cephalexin is a cephalosporin (SEF a low spor in) antibiotic that is used to treat bacterial infections of the lungs, ear, skin, bones, bladder, and kidneys. Cephalexin is used to treat infections in adults and children who are at least 1 year old. Cephalexin may also be used for purposes not listed in this medication guide. What should I discuss with my healthcare provider before taking cephalexin? You should not use this medicine if you are allergic to cephalexin or any other cephalosporin antibiotic (cefdinir, cefadroxil, cefoxitin, cefprozil, ceftriaxone, cefuroxime, Omnicef, and others). Tell your doctor if you have ever had: an allergy to any drug (especially penicillin); liver or kidney disease; or intestinal problems, such as colitis. The liquid form of cephalexin may contain sugar. This may affect you if you have diabetes. Tell your doctor if you are or breast-feeding. How should I take cephalexin? Follow all directions on your prescription label and read all medication guides or instruction sheets. Use the medicine exactly as directed. Do not use cephalexin to treat any condition that has not been checked by your doctor. Measure liquid medicine carefully. Use the dosing syringe provided, or use a medicine dose-measuring device (not a kitchen spoon). Use this medicine for the full prescribed length of time, even if your symptoms quickly improve. Skipping doses can increase your risk of infection that is resistant to medication. Cephalexin will not treat a viral infection such as the flu or a common cold. Do not share cephalexin with another person, even if they have the same symptoms you have. This medicine can affect the results of certain medical tests. Tell any doctor who treats you that you are using cephalexin. Store the tablets and capsules at room temperature away from moisture, heat, and light. Store the liquid medicine in the refrigerator. Throw away any unused liquid after 14 days. What happens if I miss a dose? Take the medicine as soon as you can, but skip the missed dose if it is almost time for your next dose. Do not take two doses at one time. What happens if I overdose? Seek emergency medical attention or call the Poison Help line at . Overdose symptoms may include nausea, vomiting, stomach pain, diarrhea, and blood in your urine. What should I avoid while taking cephalexin? Antibiotic medicines can cause diarrhea, which may be a sign of a new infection. If you have diarrhea that is watery or bloody, call your doctor before using anti-diarrhea medicine. What are the possible side effects of cephalexin? Get emergency medical help if you have signs of an allergic reaction (hives, difficult breathing, swelling in your face or throat) or a severe skin reaction (fever, sore throat, burning eyes, skin pain, red or purple skin rash with blistering and peeling). Call your doctor at once if you have: severe stomach pain, diarrhea that is watery or bloody (even if it occurs months after your last dose); unusual tiredness, feeling light-headed or short of breath; easy bruising, unusual bleeding, purple or red spots under your skin; a seizure; pale skin, cold hands and feet; yellowed skin, dark colored urine; fever, weakness; or pain in your side or lower back, painful urination. Common side effects may include: diarrhea; nausea, vomiting; indigestion, stomach pain; or vaginal itching or discharge. This is not a complete list of side effects and others may occur. Call your doctor for medical advice about side effects. You may report side effects to FDA at 3-309-FDZ-6961. What other drugs will affect cephalexin? Tell your doctor about all your other medicines, especially: metformin; or probenecid. This list is not complete. Other drugs may affect cephalexin, including prescription and wfno-wqr-gappyrs medicines, vitamins, and herbal products. Not all possible drug interactions are listed here. Where can I get more information? Your pharmacist can provide more information about cephalexin. Remember, keep this and all other medicines out of the reach of children, never share your medicines with others, and use this medication only for the indication prescribed. Every effort has been made to ensure that the information provided by [employer]. ('[employer]') is accurate, up-to-date, and complete, but no guarantee is made to that effect. Drug information contained herein may be time sensitive. [employer] information has been compiled for use by healthcare practitioners and consumers in the [place] and therefore [employer] does not warrant that uses outside of the [place] are appropriate, unless specifically indicated otherwise. [employer] drug information does not endorse drugs, diagnose patients or recommend therapy. [employer] drug information is an informational resource designed to assist licensed healthcare practitioners in caring for their patients and/or to serve consumers viewing this service as a supplement to, and not a substitute for, the expertise, skill, knowledge and judgment of healthcare practitioners. The absence of a warning for a given drug or drug combination in no way should be construed to indicate that the drug or drug combination is safe, effective or appropriate for any given patient. [employer] does not assume any responsibility for any aspect of healthcare administered with the aid of information [employer] provides. The information contained herein is not intended to cover all possible uses, directions, precautions, warnings, drug interactions, allergic reactions, or adverse effects. If you have questions about the drugs you are taking, check with your doctor, nurse or pharmacist. Copyright 5461-1086 [employer]. Version: 10.. Revision Date: 05/02/2020. Education Materials Wound Care Taking proper care of your wound will help it heal. Your healthcare provider may show you how to clean and dress the wound. He or she will also explain how to tell if the wound is healing normally. If you are unsure of how to take care of the wound, be sure to clarify what dressing to use and how often you should change the bandages. Here are the basic steps. A wound that's not healing normally may be dark in color or have white streaks. Wash your hands Tips for washing your hands include: Use liquid soap and lather for 2 minutes. Scrub between your fingers and under your nails. Rinse with warm water, keeping your fingers pointing down. Use a paper towel to dry your hands and to turn off the faucet. Remove the used dressing Here are suggestions for removing the dressing: If dressing changes cause you pain, be sure to take your pain medicine as prescribed by your healthcare provider 30 minutes before dressing changes. Set up your supplies. Put on disposable gloves if you re dressing a wound for someone else or your wound is infected. Loosen the tape by pulling gently toward the wound. Gently take off the old dressing. If the dressing is stuck to the wound, moisten it with saline (if available) or clean water. If you have a drain or tube in the wound, be careful not to pull on it. Remove the dressing 1 layer at a time and put it in a plastic bag. Seal the bag and put it in the trash. Remove your gloves. Inspect and dress the wound Check the wound carefully: Each time you change the dressing, check the wound carefully to be sure it s healing normally by making sure your wound appears to be pink and moist, and is free of infection. Wash your hands again. Put on a new pair of gloves. Clean and dress the wound as directed by your healthcare provider or nurse. Don't put anything in the wound that is not prescribed or directed by your healthcare provider. If you have a drain or tube, be careful not to pull on it. Make sure to secure the drain or tube as well. Put all unused supplies in a clean plastic bag. Seal the bag and store it in a clean, dry area between dressing changes. Be sure to wash your hands again. Call your healthcare provider Call your healthcare provider if you see any of the following signs of a problem: Bleeding that soaks the dressing Horton fluid weeping from the wound Increased drainage or drainage that is yellow, yellow-green, or foul-smelling Increased swelling or pain, or redness or swelling in the skin around the wound A change in the color of the wound, or if streaks develop in a direction away from the wound The area between any stitches opens up An increase in the size of the wound A fever of 100.4 F (38 C) or higher, or as directed by your healthcare provider Chills, increased fatigue, or a loss of appetite [id number] [employer]. [address] [place] [address]878. All rights reserved. This information is not intended as a substitute for professional medical care. Always follow your healthcare professional's instructions. Additional Information VACCINATE! IT SAVES LIVES! Members of the community who have not yet received the COVID-19 vaccine and would like to receive it can visit one of [facility] vaccine clinics. There are many vaccine clinic locations within the [facility]. For locations and available times, please visit www.gettheshot.coronavirus.[place].gov/. It is important to note that some COVID mobile vaccine clinics are held outdoors and may be canceled in rainy or stormy conditions. To learn more about pediatric vaccinations (ages 5-11), we invite you to visit the [facility] webpage. [email or web address]-Frequently-[email or web address] -Questions.html To learn more about the COVID-19 vaccine, we invite you to visit the CDC website for a list of frequently asked questions. https://www.cdc.gov/coronavirus/2019-n cov/vaccines/faq.html [facility] Patient Portal Access Instructions: Stay connected with your healthcare team and access your personal medical information anytime with the [facility] Patient Portal. If you would like a full copy of your medical records please contact the [facility] Medical Records Department Saturday through Saturday between 8a.m. and 4:30p.m. Please follow the directions below to access the portal: 1.Access the email account you provided upon registration to the hospital.2.Look for an invitation email from [facility].3.Open the email and access the invitation link: Accept Invitation to [facility].Fill in the required porter to create your account. Sign into [email or web address] with your username and password that you created in the above steps to stay up to date. You can then view a summary of results, a summary of your visits, and the ability to download your summaries to your computer or send the information securely to a physician. Remember that your healthcare information is confidential, so carefully consider who you will allow to register on the [facility] Patient Portal for access to your information. You can also access the [facility] Patient Portal on the [employer]park. Simply click on Health Records under Health Data and then click on the [facility] logo. HOW TO SAFELY DISPOSE OF PRESCRIPTION MEDICATIONS Please use one of the following methods to safely dispose of your unused medications. 1.Use a drug disposal kit: the drug disposal pouch allows you to safely discard your old and unused drugs. Ask your nurse to give you one when you are discharged.2.Visit a local take-back location: Many local pharmacies and police departments have programs that collect old and unwanted prescription drugs. Call your local pharmacy or go to http://[employer].Digital Guardian/8B9Sx3z to find one close to you.3.Make use of household items: Use cat litter or old coffee grounds to dispose medications if other options are not available. Mix your drugs with these household products, seal them in an airtight container and throw it into the garbage. Call [facility]: [phone] to be sure your drugs can be disposed of in this way. Some medicines may require a different approach.4.Never flush your medications down the toilet. IF YOU HAVE BEEN PRESCRIBED AN OPIOIDS FOR PAIN If you have been prescribed an opioid (such as hydrocodone, oxycodone or morphine), it is critical to understand the possible side effects and risks of opioid pain medications. Even when taken as directed, opioids can have several side effects including: Tolerance, meaning you might need to take more of a medication for the same pain relief. Nausea, vomiting and/or constipation. Sleepiness, dizziness, dry mouth, confusion, depression or itching. Physical dependence, meaning you have withdrawal symptoms when a medication is stopped ? this can develop within a few days. KNOW YOUR RESPONSIBILITIES It is important to know exactly how much and how often to take the opioid pain medications you are prescribed. Never take opioids in higher amounts or more often than prescribed. Do not combine opioids with alcohol or other drugs that cause drowsiness, such as benzodiazepines, also known as benzos, including diazepam and alprazolam, muscle relaxants or sleep aids. Never sell or share prescription opioids. This is illegal. Store opioids in a secure place and out of reach of others (including children, family, friends and visitors). The last page(s) of this document has been signed and retained as a CHART COPY Signatures Patient Education Materials Wound Care Medication Leaflets cephalexin My discharge plan and instructions have been reviewed and explained to me and I,WILL NICHOLS understand my current condition and have read and understand these discharge instructions. I have received a written copy of the plan/instructions. If I have questions, I am aware that I should contact my doctor. 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 Author Type: Nurse Practitioner Type: Progress Notes Filed: 08/28/2020 11:45 AM Note Text: Subjective HPI Will Nichols is a 50 year old male who presents with sinus congestion, drainage, and sinus pain and pressure. Has had symptoms for 10 days. Was using coricidin and zyrtec but has not had any improvement. He has had both COVID-19 vaccines. Review of Systems Constitutional: Negative for chills and fever. HENT: Positive for congestion and sinus pain. Negative for ear pain and sore throat. Respiratory: Negative for cough and shortness of breath. Cardiovascular: Negative. Musculoskeletal: Negative for myalgias. BP 132/84 Pulse 76 Temp 36.4 ?C (97.5 ?F) (Tympanic) Resp 16 Wt 129.7 kg (286 lb) SpO2 96% History reviewed. No pertinent past medical history. History reviewed. No pertinent surgical history. ALLERGIES Patient has no known allergies. MEDICATIONS PARoxetine (PAXIL) 20 mg tablet Take 20 mg by mouth daily at bedtime. lisinopril-hydroCHLOROthiazide (PRINZIDE,ZESTORETIC) 20-12.5 mg per tablet Take 1 tablet by mouth twice daily. LISINOPRIL ORAL Take by mouth. amoxicillin-clavulanic acid (AUGMENTIN) 875-125 mg per tablet Take 1 tablet by mouth twice daily for 10 days. temazepam (RESTORIL) 15 mg take 1 to 2 capsules by mouth at bedtime if needed apremilast (OTEZLA STARTER) 10 mg (4)-20 mg (4)-30 mg(19) DsPk Take by mouth. History reviewed. No pertinent family history. Social History Tobacco Use - Smoking status: Never Smoker - Smokeless tobacco: Never Used Substance Use Topics - Alcohol use: Not on file - Drug use: Not on file Objective Physical Exam Vitals and nursing note reviewed. HENT: Right Ear: Tympanic membrane, ear canal and external ear normal. Left Ear: Tympanic membrane, ear canal and external ear normal. Nose: Nasal tenderness, mucosal edema, congestion and rhinorrhea present. Rhinorrhea is purulent. Right Sinus: Maxillary sinus tenderness and frontal sinus tenderness present. Left Sinus: Maxillary sinus tenderness and frontal sinus tenderness present. Mouth/Throat: Pharynx: Uvula midline. No oropharyngeal exudate or posterior oropharyngeal erythema. Cardiovascular: Rate and Rhythm: Normal rate and regular rhythm. Heart sounds: Normal heart sounds. Pulmonary: Effort: Pulmonary effort is normal. No respiratory distress. Breath sounds: Normal breath sounds. No wheezing or rales. Musculoskeletal: Cervical back: Neck supple. Lymphadenopathy: Cervical: No cervical adenopathy. Skin: General: Skin is warm and dry. Findings: No erythema or rash. Neurological: Mental Status: He is alert. ASSESSMENT/PLAN: 1. Acute pansinusitis, recurrence not specified - ICD9: 461.8, ICD10: J01.40 - Will begin treatment with Augmentin 875 mg PO BID for 10 days - The patient should also be given flonase for the first 5-7 days of treatment. - Supportive care with plenty of fluids, rest, and analgesia prn. - AMOXICILLIN 875 MG-POTASSIUM CLAVULANATE 125 MG TABLET - Follow-up with your PCP in 3-5 days if symptoms have not improved or sooner if symptoms worsen - Discussed red flags and need for immediate medical evaluation if any occur. - Discussed supportive care treatment with fluids, rest and analgesia. 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 Advance Directives and Living Will Power of Case Technician Additional Source Comments (unrecognized sect ion and content) No Status Records FoundNo Status Records FoundNo Status Records Found INFORMATION SOURCE (unrecogn ized section and content) DATE CREATED AUTHOR AUTHOR'S ORGANIZ ATION 05/22/2021 [facility] DATE CREATED AUTHOR AUTHOR'S ORGANIZ ATION 10/26/2022 [facility] ([place]) Patient Care team informatio n (unrecognized section and content) Care Team Personnel Name: ANUPAMA HARDY MD Member Role: Primary Care Physician Address: Address: [address] [place] [id number] Name: RASHID MCCARTNEY DO Position: ED Physician Member Role: Attending Physician Address: Address: [facility] [address] [place], [place] [address] Care Team Related Persons Name: HARDIKYEHUDA HUJOSE Address: Home [address] [place] [address] FOR RECORDS PERTAINING TO PATIENTS WHO ARE OR HAVE BEEN ENROLLED IN A CHEMICAL DEPENDENCY/SUBSTANCEABUSE PROGRAM, SOME INFORMATION MAY BE OMITTED. This clinical summary was aggregated from multiple sources. Caution should be exercised in using it in the provision of clinical care. This summary normalizes information from multiple sources, and as a consequence, information in this document may materially change the coding, format and clinical context of patient data. In addition, data may be omitted in some cases. CLINICAL DECISIONS SHOULD BE BASED ON THE PRIMARY CLINICAL RECORDS. [facility] [employer] [facility]. provides no warranty or guarantee of the accuracy or completeness of information in this document.
[2023-05-02 12:32] LABS: Absolute Lymphocyte Count 2.07 X10^3/uL (0.83-4.51); Absolute Neutrophil Count 3.2 X10^3/uL (2.0-7.7); Basophil# 0.07 X10^3/uL; Basophil% 1.2 % (0-1); Eosinophils% 1.7 % (0-5); Hematocrit 48.1 % (40-54); Hemoglobin 16.1 g/dL (13.0-16.5); Lymphocyte # 2.07 X10^3/ul (0.83-4.51); Lymphocyte % 34.6 % (19-41); Mean Corp Hgb Conc 33.5 g/dL (32-36); Mean Corpuscular Hgb 31.1 pg (27.0-32.0); Mean Platelet Vol. 9.7 fl (6.2-12.0); Monocyte% 8.3 % (0-10); NRBC Flagged by Analyzer 0 % (0-5); Neutrophil % 53.4 % (47-70); Platelet Count 245 K/mm3 (150-450); RBC Distribution Width CV 12.8 % (11.6-14.6); RBC Distribution Width SD 43.9 fl (35.1-43.9); Red Blood Count 5.17 M/mm3 (4.6-6.2)
[2023-05-02 13:10] LABS: ALB/GLOB Ratio 1.1 RATIO (0.9-2.4); AST(SGOT) 36 U/L (15-37); Alanine Aminotransfer ALT/SGPT 63 U/L (16-61); Albumin, Serum 3.8 g/dL (3.2-5.0); Alkaline Phosphatase 58 U/L (45-117); Anion Gap 5 (5-15); BUN 16 mg/dL (7-18); BUN/Creat Ratio 15.8 RATIO (10-20); Calcium,Total 8.8 mg/dL (8.5-10.1); Chloride 103 mmol/L (98-107); Cholesterol 192 mg/dL (200); Creatinine, Serum 1.01 mg/dL (0.70-1.30); EST Glomerular Filtration Rate 83 mL/min (>60); Est Glom Filt Rate - Afr Amer 100 mL/min (>60); Globulin 3.6 g/dL (2.2-4.2); Glucose 138 mg/dL (74-106); High Density Lipoprotein 37 mg/dL; Potassium 4.4 mmol/L (3.5-5.1); Protein, Total 7.4 g/dL (6.4-8.2); Sodium Level 136 mmol/L (136-145); Triglycerides 161 mg/dL; Very Low Density Lipoprotein 32 mg/dL (5-40)
== END | disposition home or self-care (01) ==
LOC: BIMLAB 10:03
PROVIDERS: PCP Internal Medicine; Referring Provider Internal Medicine; Visit Provider Internal Medicine
DX: I10 Essential (primary) hypertension (principal)
CPT/HCPCS: 36415; 80053; 80061; 85025

== ENCOUNTER → 2023-10-01 | Outpatient (CLI) | payer OTHER, SELFPAY ==
[2023-10-01 12:29] LABS: Absolute Lymphocyte Count 1.58 X10^3/uL (0.83-4.51); Absolute Neutrophil Count 2.8 X10^3/uL (2.0-7.7); Basophil# 0.06 X10^3/uL; Basophil% 1.2 % (0-1); Eosinophil# 0.08 X10^3/uL; Eosinophils% 1.6 % (0-5); Hematocrit 45.5 % (40-54); Hemoglobin 15.6 g/dL (13.0-16.5); Lymphocyte # 1.58 X10^3/ul (0.83-4.51); Lymphocyte % 30.9 % (19-41); Mean Corp Hgb Conc 34.3 g/dL (32-36); Mean Corpuscular Volume 90.3 fL (80-94); Mean Platelet Vol. 10.1 fl (6.2-12.0); Monocyte# 0.54 X10^3/uL; Monocyte% 10.6 % (0-10); NRBC Flagged by Analyzer 0 % (0-5); Neutrophil # 2.83 X10^3/uL (2.7-7.7); Neutrophil % 55.3 % (47-70); Platelet Count 245 K/mm3 (150-450); RBC Distribution Width CV 12.6 % (11.6-14.6); RBC Distribution Width SD 41.9 fl (35.1-43.9); Red Blood Count 5.04 M/mm3 (4.6-6.2); White Blood Count 5.1 K/mm3 (4.4-11.0)
[2023-10-01 12:38] LABS: Vitamin B12 511 pg/mL (211-911)
[2023-10-01 13:33] LABS: ALB/GLOB Ratio 1.1 RATIO (0.9-2.4); AST(SGOT) 40 U/L (15-37); Alanine Aminotransfer ALT/SGPT 60 U/L (16-61); Alkaline Phosphatase 58 U/L (45-117); Anion Gap 9 (5-15); BUN 11 mg/dL (7-18); BUN/Creat Ratio 10.8 RATIO (10-20); Calcium,Total 9.4 mg/dL (8.5-10.1); Chloride 104 mmol/L (98-107); Creatinine, Serum 1.02 mg/dL (0.70-1.30); EST Glomerular Filtration Rate 82 mL/min (>60); Est Glom Filt Rate - Afr Amer 99 mL/min (>60); Globulin 3.6 g/dL (2.2-4.2); Glucose 147 mg/dL (74-106); Potassium 3.7 mmol/L (3.5-5.1); Protein, Total 7.6 g/dL (6.4-8.2); Sodium Level 134 mmol/L (136-145); T4 Free Direct 1.03 ng/dL (0.76-1.46); Thyroid Stim Hormone (TSH) 1.22 uIU/mL (0.358-3.74)
== END | disposition home or self-care (01) ==
LOC: BIMLAB 09:14
PROVIDERS: PCP Internal Medicine; Referring Provider Internal Medicine; Visit Provider Internal Medicine
DX: I10 Essential (primary) hypertension (principal); F41.9 Anxiety disorder, unspecified; F32.A Depression, unspecified
CPT/HCPCS: 36415; 80053; 82607; 84439; 84443; 85025

== ENCOUNTER → 2023-11-28 | Outpatient (CLI) | payer OTHER, SELFPAY | END | disposition home or self-care (01) | LOC: SL 11:46 | PROVIDERS: PCP Internal Medicine; Referring Provider Clinical Nurse Specialist Acute Care; Visit Provider Clinical Nurse Specialist Acute Care | DX: G47.33 Obstructive sleep apnea (adult) (pediatric) (principal) | CPT/HCPCS: 98960; G0463 ==

== ENCOUNTER → 2024-07-03 | Outpatient (CLI) | payer OTHER, SELFPAY ==
[2024-07-03 12:23] LABS: Absolute Neutrophil Count 3.2 X10^3/uL (2.0-7.7); Basophil# 0.05 X10^3/uL; Basophil% 0.9 % (0-1); Eosinophil# 0.13 X10^3/uL; Eosinophils% 2.4 % (0-5); Hematocrit 46.3 % (40-54); Hemoglobin 15.7 g/dL (13.0-16.5); Lymphocyte % 25.7 % (19-41); Mean Corp Hgb Conc 33.9 g/dL (32-36); Mean Corpuscular Hgb 31.3 pg (27.0-32.0); Mean Corpuscular Volume 92.2 fL (80-94); Mean Platelet Vol. 9.9 fl (6.2-12.0); Monocyte# 0.68 X10^3/uL; Monocyte% 12.5 % (0-10); NRBC Flagged by Analyzer 0 % (0-5); Neutrophil # 3.16 X10^3/uL (2.7-7.7); Neutrophil % 58.1 % (47-70); Platelet Count 286 K/mm3 (150-450); RBC Distribution Width CV 13.2 % (11.6-14.6); RBC Distribution Width SD 44.7 fl (35.1-43.9); Red Blood Count 5.02 M/mm3 (4.6-6.2); White Blood Count 5.4 K/mm3 (4.4-11.0)
[2024-07-03 12:54] LABS: ALB/GLOB Ratio 1.6 RATIO (0.9-2.4); AST(SGOT) 29 U/L (<=37); Alanine Aminotransfer ALT/SGPT 40 U/L (<=46); Albumin, Serum 4.4 g/dL (3.5-5.0); Alkaline Phosphatase 65 U/L (40-129); Anion Gap 10 (5-15); BUN 13 mg/dL (4-19); BUN/Creat Ratio 13.3 RATIO (10-20); Calcium,Total 9.4 mg/dL (7.6-11.0); Carbon Dioxide 26.3 mmol/L (21.0-32.0); Chloride 100 mmol/L (98-108); Creatinine, Serum 0.95 mg/dL (0.70-1.20); EST Glomerular Filtration Rate 97 (>60); Globulin 2.8 g/dL (2.2-4.2); Glucose 95 mg/dL (70-99); Potassium 3.7 mmol/L (3.3-5.1); Protein, Total 7.1 g/dL (5.9-8.4); Sodium Level 137 mmol/L (133-145); Total Bilirubin 0.26 mg/dL (0.00-1.30)
[2024-07-03 13:47] LABS: Cholesterol 193 mg/dL (<=200); High Density Lipoprotein 38 mg/dL; Low Density Lipoprotein Calc. 114 mg/dL; Triglycerides 204 mg/dL; Very Low Density Lipoprotein 41 mg/dL (5-40); cholesterol:hdl ratio screen 5.07
[2024-07-03 14:24] LABS: Microalbumin,Random Urine < 12.0 mg/L (NO RANGE EST.); Microalbumin:Creatinine Ratio UNABLE TO CALCULATE mg/g CRE
[2024-07-03 17:12] LABS: Hemoglobin A1c 5.6 % (<=5.6)
== END | disposition home or self-care (01) ==
LOC: BIMLAB 08:07
PROVIDERS: PCP Internal Medicine; Referring Provider Internal Medicine; Visit Provider Internal Medicine
DX: E11.69 Type 2 diabetes mellitus with other specified complication (principal); Z12.5 Encounter for screening for malignant neoplasm of prostate
CPT/HCPCS: 36415; 80053; 80061; 82043; 82570; 83036; 84153; 85025; G0103

== ENCOUNTER → 2025-01-04 | Outpatient (CLI) | payer OTHER, SELFPAY ==
[2025-01-04 12:08] LABS: Hematocrit 47.5 % (40-54); Hemoglobin 16.1 g/dL (13.0-16.5); Immature Granulocytes Count 0.010 X10^3/uL (0.0-0.0); Mean Corp Hgb Conc 33.9 g/dL (32-36); Mean Corpuscular Volume 93.1 fL (80-94); Mean Platelet Vol. 9.3 fl (6.2-12.0); NRBC Flagged by Analyzer 0 % (0-5); Platelet Count 278 K/mm3 (150-450); RBC Distribution Width CV 13.3 % (11.6-14.6); RBC Distribution Width SD 45.6 fl (35.1-43.9); Red Blood Count 5.10 M/mm3 (4.6-6.2); White Blood Count 5.4 K/mm3 (4.4-11.0)
[2025-01-04 13:05] LABS: AST(SGOT) 26 U/L (<=37); Alanine Aminotransfer ALT/SGPT 24 U/L (<=46); Albumin, Serum 4.3 g/dL (3.5-5.0); Alkaline Phosphatase 49 U/L (40-129); Anion Gap 10 (5-15); BUN 11 mg/dL (4-19); BUN/Creat Ratio 12.3 RATIO (10-20); Calcium,Total 9.6 mg/dL (7.6-11.0); Carbon Dioxide 27.6 mmol/L (21.0-32.0); Chloride 99 mmol/L (98-108); Globulin 2.8 g/dL (2.2-4.2); Glucose 102 mg/dL (70-99); Potassium 5.1 mmol/L (3.3-5.1)
== END | disposition home or self-care (01) ==
LOC: BIMLAB 08:06
PROVIDERS: PCP Internal Medicine; Referring Provider Internal Medicine; Visit Provider Internal Medicine
DX: F41.9 Anxiety disorder, unspecified (principal); E11.69 Type 2 diabetes mellitus with other specified complication; F32.A Depression, unspecified
CPT/HCPCS: 36415; 80053; 83036; 84439; 84443; 85025

== ENCOUNTER → 2025-02-05 | Outpatient (CLI) | payer OTHER, SELFPAY ==
--- NOTE | 2025-02-05 13:15 | CT_ITS ---
PROCEDURE: SPINE LUMBAR WITHOUT CONTRAST 02/05/2025 REASON FOR EXAM: LOW BACK PAINFUL LUMP TECHNIQUE: Procedure Code: CTSPL Modality: CT Procedure: SPINE LUMBAR WITHOUT CONTRAST Coronal and Sagittal reconstruction series were provided. One or more dose reduction techniques were used (e.g., Automated exposure control, adjustment of the mA and/or kV according to patient size, use of iterative reconstruction technique COMPARISON: None. RADIATION DOSE SUMMARY: CTDlvol: 27.34 mGy DLP: 1177.09 mGycm FINDINGS: Vertebrae: No acute bony abnormalities. Alignment: Normal. L1-2: Disc bulge. Facet joint arthropathy. Mild bilateral foramina stenosis. Mild canal stenosis. L2-3: Disc bulge. Facet joint arthropathy. Mild bilateral foramina stenosis. Moderate canal stenosis. L3-4: Disc bulge. Facet joint arthropathy. Moderate bilateral foramina stenosis. Moderate canal stenosis. L4-5: Disc bulge. Facet joint arthropathy. Moderate bilateral foramina stenosis. No canal stenosis. L5-S1: No foraminal or canal stenosis. Sacrum: No acute bony abnormalities. CT/Spine Lumbar without Contrast IMPRESSION: Moderate canal stenosis and moderate bilateral foramina stenosis at L3-L4. Moderate canal stenosis at L2-L3. Moderate bilateral foramina stenosis at L4-L5. Reading Location: [id number]
== END | disposition home or self-care (01) ==
LOC: CT 13:00
PROVIDERS: PCP Internal Medicine; Referring Provider Nurse Practitioner Family; Visit Provider Nurse Practitioner Family
DX: R22.2 Localized swelling, mass and lump, trunk (principal)
CPT/HCPCS: 72131

== ENCOUNTER → 2025-03-15 | Outpatient (CLI) | payer OTHER, SELFPAY ==
--- NOTE | 2025-03-15 07:54 | MRI_ITS ---
PROCEDURE: PELVIS W/WO CONTRAST, 03/15/2025 REASON FOR EXAM: CHECK MASS TECHNIQUE: Multisequence multiplanar MR of the pelvis was performed with and without IV contrast. IV contrast: 20 mL Clariscan COMPARISON: 02/05/2025 FINDINGS: Visualized bowel: Suboptimally evaluated by MRI; no gross bowel dilatation. Lymph nodes: Unremarkable. Vasculature: Unremarkable. Peritoneum: Unremarkable. Bladder: Underdistended and suboptimally evaluated, grossly unremarkable. Reproductive Organs: Nonspecific T1 bright/T2 dark probably hemorrhagic or proteinaceous material in the LEFT seminal vesicle. Body Wall: Two vitamin-E capsules tin a region of clinical concern along the RIGHT posteromedial paraspinal soft tissues at the level of L3-L4 and S2. No discrete or measurable lesion is evident in this region. Tiny fat containing umbilical hernia. Musculoskeletal: Degenerative findings of the spine better depicted on recent dedicated lumbar spinal MRI. Other: Partially imaged mild nonspecific symmetric perinephric stranding. MRI/Pelvis W/WO Contrast IMPRESSION: 1. No discrete or measurable mass evident by MRI in the RIGHT posteromedial par aspinal region of clinical concern. 2. Additional description as above. Reading Location: [id number]
--- OUTSIDE RECORDS SUMMARY | 2025-03-15 08:16 | XMS RPT_ITS | CCD ---
Author Organization [facility] Care Team Providers Care Durable Medical Equipment Technician Name Role Phone Wayne Ramírez Primary Care Provider Dr. Wayne Ramírez Primary Care Provider Dr. Guerrero Ramires Attending Provider ANTONY NGUYEN, ANUPMAA Martin Primary Care Physician DR RASHID MCCARTNEY DO Attending Unavailable ANTONY NGUYEN, ANUPAMA Martin Primary Care Unavailable Dr. Wayne Ramírez Referring Provider Dr. Nito Canseco Attending Provider Dr. Hardeep Schafer Primary Care Provider Dr. Hardeep Schafer Referring Provider Dr. Nito Canseco Primary Care Provider Dr. Nito Canseco Attending Provider [phone] Dr. Nito Canseco Referring Provider [phone])2 Dr. Nito Canseco Primary Care Provider [phone] Dr. Nito Canseco Attending Provider [phone])2 Dr. Nito Canseco Referring Provider [phone])2 SAMMY Molina Attending Provider Dr. Nito Canseco Primary Care Provider Dr. Nito Canseco Referring Provider [phone])2 Dr. Nito Canseco Attending Provider [phone])2 Ajith NGUYEN, Dr. Beauchamp Primary Care Provider Ajith NGUYEN, Dr. Beauchamp Attending Provider 1(33 0) Ajith NGUYEN, Dr. Beauchamp Referring Provider 1(33 0) Ajith NGUYEN, Dr. Beauchamp Primary Care Provider Ajith NGUYEN, Dr. Beauchamp Attending Provider 1(33 0) Ajith NGUYEN, Dr. Beauchamp Referring Provider 1(33 0) Corbin Molina Attending Provider [phone] Ajith NGUYEN, Dr. Beauchamp Primary Care Provider Ajith NGUYEN, Dr. Beauchamp Referring Provider 1(33 0) Ajith NGUYEN, Dr. Beauchamp Attending Provider 1(33 0) Ungerer CHARHOUSE WORKER-CPauline Attending Provider [phone])2 Ajith NGUYEN, Dr. Beauchamp Primary Care Physician Corbin Molina Attending Physician Ajith NGUYEN, Dr. Beauchamp Attending Physician 1(3 30) Ungerer CHARHOUSE WORKER-CPauline Attending Physician MelvinrPauline Attending Unavailable Oleghe, Efewongbe Referring Unavailable Oleghe, Efewongbe Primary Care Unavailable Oleghe, Efewongbe Attending Unavailable Oleghe, Efewongbe Referring Unavailable Oleghe, Efewongbe Primary Care Unavailable Oleghe, Efewongbe Referring Unavailable Oleghe, Efewongbe Primary Care Unavailable Robotham, Marichuy Attending Unavailable Oleghe, Efewongbe Attending Unavailable Oleghe, Efewongbe Referring Unavailable Oleghe, Efewongbe Primary Care Unavailable Ungerer, Pauline Attending Unavailable Ungerer, Pauline Referring Unavailable Oleghe, Efewongbe Primary Care Unavailable Oleghe, Efewongbe Primary Care Unavailable Robotham, Marichuy Attending Unavailable Robotham, Marichuy Referring Unavailable Oleghe, Efewongbe Primary Care Unavailable Oleghe, Efewongbe Attending Unavailable Oleghe, Efewongbe Referring Unavailable Oleghe, Efewongbe Primary Care Unavailable Oleghe, Efewongbe Attending Unavailable Oleghe, Efewongbe Referring Unavailable Oleghe, Efewongbe Primary Care Unavailable Oleghe, Efewongbe Attending Unavailable Oleghe, Efewongbe Referring Unavailable Oleghe, Efewongbe Primary Care Unavailable Oleghe, Efewongbe Attending Unavailable Oleghe, Efewongbe Referring Unavailable Corbin Molina Attending Unavailable Oleghe, Efewongbe Referring Unavailable Oleghe, Efewongbe Primary Care Unavailable Oleghe, Efewongbe Attending Unavailable Oleghe, Efewongbe Referring Unavailable Oleghe, Efewongbe Primary Care Unavailable Medications Current Medications Medication Drug Class(es) Dates Sig (Normalized) Sig (Original) Humira (1 source) Tumor Necrosis Factor Dilshad Start: 10-31-2017 inject 1 dose by subcutaneous injection once Humira Dose : 40 mg =, Subcutaneous, Once, 0 Refill(s) Start Date: 10/31/17 Status: Ordered busPIRone hydrochloride 7.5 mg oral tablet (1 source) Start: 01-11-2025 take 1 tablet by mouth twice daily cephalexin 500 mg oral capsule (1 source) Cephalosporin Antibacterial Start: 10-17-2022 End: 10-22-2022 cephalexin 500 mg oral capsule Dose : 500 mg = 1 cap(s), Oral, TID, Take with a probiotic, X 5 day(s), # 15 cap(s), 0 Refill(s), 10/22/22 20:27:00 EDT, 127.3 Start Date: 10/17/22 Stop Date: 10/22/22 Status: Ordered cyclobenzaprine hydrochloride 10 mg oral tablet (2 sources) Muscle Relaxant Start: 12-17-2024 take 1 tablet by mouth at bedtime as needed for muscle spasms DULoxetine 30 mg delayed release oral capsule (20 sources) Serotonin and Norepinephrine Reuptake Inhibitor Start: 09-30-2023 End: 10-12-2024 take 3 capsules by mouth once daily Start: 07-11-2022 End: 09-30-2023 take 1 capsule by mouth twice daily Duloxetine 30 mg capsule,delayed release(DR/EC) Discontinued 30 mg PO TWICE A DAY 180 January 04, 2023 10:43am September 30, 2023 11:22am hydrOXYzine hydrochloride 25 mg oral tablet (1 source) Antihistamine Start: 12-25-2024 take 1 tablet by mouth twice daily as needed for anxiety lisinopril 20 mg oral tablet (1 source) Angiotensin Converting Enzyme Inhibitor Start: 10-31-2017 lisinopril 20 mg oral tablet Dose : 20 mg = 1 tab(s), Oral, qDay, # 30 tab(s), 0 Refill(s) Start Date: 10/31/17 Status: Ordered modafinil 100 mg oral tablet (1 source) Sympathomimetic-lik e Agent Start: 04-19-2019 modafinil 100 mg oral tablet 0 Refill(s) Start Date: 04/19/19 Status: Ordered Multivitamin preparation (4 sources) Start: 07-11-2022 take 1 tablet by mouth once daily Multivitamin Active 1 TABLET PO DAILY July 10, 2022 11:00pm Start: 07-11-2022 take 1 tablet by danielle th once daily Multivitamin Active 1 TABLET PO DAILY July 11, 2022 12:00am Multivitamin tablet (6 sources) Start: 07-11-2022 Start: 07-11-2022 Multivitamin t ablet Active 1 {tbl} PO DAILY July 11, 2022 12:00am naproxen 500 mg oral tablet (1 source) [...] 0 Refill(s) Start Date: 04/19/19 Status: Ordered predniSONE 20 mg oral tablet (2 sources) Start: 12-17-2024 take 3 tablets by mouth once daily, then take 2 tablets by mouth once daily, then take 1 tablet by mouth once daily, then take 0.5 tablet by mouth once daily Tirzepatide (2 sources) Start: 10-28-2024 Start: 02-24-2024 End: 10-28-2024 Tirzepatide 5 mg/0.5 mL pen injector Discontinued 5 mg SC EVERY WEEK 6.5 90 February 24, 2024 12:27pm October 28, 2024 2:32pm for 4 weeks Tirzepatide 5 mg/0.5 mL pen injector (8 sources) Start: 10-28-2024 Tirzepatide 5 mg/0.5 mL pen injector Active 5 mg SC EVERY WEEK 6.5 90 October 28, 2024 2:30pm Start: 02-24-2024 End: 10-28-2024 Tirzepatide 5 mg/0.5 mL pen injector Discontinued 5 mg SC EVERY WEEK 6.5 90 February 24, 2024 12:27pm October 28, 2024 2:32pm for 4 weeks Start: 02-24-2024 Tirzepatide 5 mg/0.5 mL pen injector Active 5 mg SC EVERY WEEK 6.5 90 February 24, 2024 12:27pm for 4 weeks traMADol hydrochloride 50 mg oral tablet (1 source) Opioid Agonist Start: 04-19-2019 traMADol 50 mg oral tablet 0 Refill(s) Start Date: 04/19/19 Status: Ordered Completed/Discontinued Medications Medication Drug Class(es) Dates Sig (Normalized) Sig (Original) amLODIPine 5 mg oral tablet (20 sources) Dihydropyridine Calcium Channel Dilshad Start: 3 End: 5 take 1 tablet by mouth once daily Amlodipine 5 mg tablet Discontinued 5 mg PO DAILY January 23, 2024 7:05pm October 28, 2024 2:32pm On Hold: Hold due to concern for hypotension amoxicillin 875 mg oral tablet (5 sources) Penicillin-class Antibacterial Start: 5 End: 5 take 1 tablet by mouth twice daily Amoxicillin 875 mg tablet Discontinued 875 mg PO TWICE A DAY September 30, 2024 12:00am December 17, 2024 1:01pm cariprazine 1.5 mg oral capsule (1 source) Atypical Antipsychotic Start: 5 End: 5 take 1 capsule by mouth once daily Cariprazine (Vraylar) 1.5 mg capsule Discontinued 1.5 mg PO daily 30 3 December 25, 2024 12:00am January 11, 2025 10:00am dexamethasone 6 mg oral tablet (6 sources) Corticosteroid Start: 4 End: 4 take 1 tablet by mouth once daily Dexamethasone 6 mg tablet Discontinued 6 mg PO DAILY 5 0 January 03, 2024 12:00am January 23, 2024 5:41pm hydroCHLOROthiazide 12.5 mg / lisinopril 20 mg oral tablet (20 sources) Thiazide Diuretic, Angiotensin Converting Enzyme Inhibitor Start: 3 End: 5 Lisinopril-Hydroc hlorothiazide 20-12.5 mg tablet Discontinued 1 {tbl} PO TWICE A DAY 180 December 21, 2024 8:43pm December 22, 2024 9:42am Start: 07-11-2022 End: 01-04-2023 take 1 tablet by mouth twice daily Lisinopril-Hydrochlorothiazide Discontin ued 1 TABLET PO TWICE A DAY October 03, 2022 8:34am January 04, 2023 9:44am Start: 04-19-2019 hydrochlorothi azide-lisinopril 12.5 mg-20 mg oral tablet 0 Refill(s) Start Date: 04/19/19 Status: Ordered Liver detox (10 sources) Start: 07-11-2022 End: 10-03-2022 Liver detox Discontinued PO DAILY July 10, 2022 11:00pm October 03, 2022 8:13am Start: 07-11-2022 End: 10-03-2022 Liver detox Discontinued PO DAILY July 11, 2022 12:00am October 03, 2022 9:13am meloxicam 15 mg oral tablet (6 sources) Nonsteroidal Anti-inflammatory Drug Start: 08-14-2023 End: 09-30-2023 take 1 tablet by mouth once daily Meloxicam 15 mg tablet Discontinued 15 mg PO DAILY August 14, 2023 12:00am September 30, 2023 11:03am 24 hr metFORMIN hydrochloride 500 mg extended release oral tablet (6 sources) Biguanide Start: 09-30-2023 End: 01-23-2024 take 1 tablet by mouth once daily in the evening Metformin 500 mg tablet extended release 24 hr Discontinued 500 mg PO EVERY EVENING 90 September 30, 2023 12:00am January 23, 2024 5:41pm QUEtiapine 50 mg oral tablet (1 source) Atypical Antipsychotic Start: 01-11-2025 End: 01-11-2025 Quetiapine (Seroquel) 50 mg tablet Discontinued 50 mg PO AT BEDTIME 30 2 January 11, 2025 12:00am January 11, 2025 11:51am Take 25 mg QHS x 1 week then increase to 50 mg QHS temazepam 15 mg oral capsule (20 sources) Benzodiazepine Start: 04-19-2019 End: 01-04-2023 take 1 capsule by mouth at bedtime as needed for sleep Temazepam 15 mg capsule Discontinued 15 mg PO AT BEDTIME as needed for sleep 30 October 03, 2022 11:10am January 04, 2023 10:13am Insomnia Insomnia, unspecified Tirzepatide (1 source) Start: 01-23-2024 End: 02-24-2024 Tirzepatide (Mounjaro) 2.5 mg/0.5 mL pen injector Discontinued 2.5 mg SC EVERY WEEK 2 January 23, 2024 12:00am February 24, 2024 12:28pm for 4 weeks Tirzepatide (Mounjaro) 2.5 mg/0.5 mL pen injector (5 sources) Start: 01-23-2024 End: 02-24-2024 Tirzepatide (Mounjaro) 2.5 mg/0.5 mL pen injector Discontinued 2.5 mg SC EVERY WEEK 2 January 23, 2024 12:00am February 24, 2024 12:28pm for 4 weeks Start: 01-23-2024 End: 02-24-2024 Tirzepatide (Mounjaro) 2.5 m g/0.5 mL pen injector Discontinued 2.5 mg SC EVERY WEEK 2 January 23, 2024 12:00am February 24, 2024 12:28pm for 4 weeks traZODone hydrochloride 50 mg oral tablet (20 sources) Serotonin Reuptake Inhibitor Start: 09-30-2023 End: 11-11-2024 take 2 tablets by mouth at bedtime as needed Trazodone 50 mg tablet Discontinued 100 mg PO AT BEDTIME as needed for insomnia 180 90 September 30, 2023 11:23am November 11, 2024 10:00pm Start: 10-03-2022 End: 09-30-2023 take 1 tablet by mouth at bedtime as needed Trazodone 50 mg tablet Discontinued 50 mg PO AT BEDTIME as needed for insomnia 90 3 January 04, 2023 10:43am September 30, 2023 11:22am Problems Active Problems Problem Classification Problem Date Documented Date Episodic/Chronic Anxiety disorders (20 sources) Posttraumatic stress disorder; Translations: [Post-traumatic stress disorder, unspecified] Onset: 12-25-2024 10-03-2022 Chronic Diabetes mellitus with complications (1 source) Type 2 diabetes mellitus with other specified complication; Translations: [Type 2 diabetes mellitus with other specified complication] Onset: 10-28-2024 Chronic Diabetes mellitus without complication (13 sources) Type 2 diabetes mellitus; Translations: [Type 2 diabetes mellitus without complications] Onset: 07-22-2024 04-16-2024 Chronic Diabetes mellitus without complication (12 sources) Prediabetes; Translations: [Prediabetes] 01-04-2023 Episodic Essential hypertension (20 sources) Hypertensive disorder; Translations: [Essential (primary) hypertension] 10-31-2017 Chronic Immunizations and screening for infectious disease (7 sources) Needs influenza immunization; Translations: [Encounter for immunization] Onset: 03-03-2025 01-23-2024 Episodic Mood disorders (10 sources) Depressive disorder; Translations: [Depression] 07-11-2022 Chronic Mood disorders (1 source) Mood disorders; Translations: [Depression, unspecified] Onset: 12-25-2024 Osteoarthritis (1 source) Arthritis 10-31-2017 Chronic Other connective tissue disease (10 sources) Recurrent falls ; Translations: [Repeated falls] 07-22-2024 Episodic Other ear and sense organ disorders (17 sources) Impacted cerumen; Translations: [Impacted cerumen, unspecified ear] 06-24-2022 Episodic Other ear and sense organ disorders (2 sources) Impacted cerumen, bilateral; Translations: [Impacted cerumen] 03-25-2023 Episodic Other ear and sense organ disorders (1 source) Impacted cerumen of bilateral ears; Translations: [Impacted cerumen, bilateral] 03-25-2023 Episodic Other non-traumatic joint disorders (6 sources) Pain in elbow; Translations: [Pain in unspecified elbow] 08-14-2023 Episodic Other skin disorders (4 sources) Lumbar mass; Translations: [Localized swelling, mass and lump, trunk] 12-17-2024 Episodic Other skin disorders (2 sources) Localized swelling, mass and lump, trunk; Translations: [Localized swelling, mass and lump, trunk] Onset: 02-24-2025 Episodic Other upper respiratory disease (10 sources) Seasonal allergy; Translations: [Other seasonal allergic rhinitis] 07-11-2022 Chronic Other upper respiratory infections (7 sources) Acute sinusitis; Translations: [Acute sinusitis, unspecified] 04-20-2024 Episodic Residual codes; unclassified (20 sources) Obstructive sleep apnea syndrome; Translations: [Obstructive sleep apnea (adult) (pediatric)] 07-11-2022 Chronic Residual codes; unclassified (3 sources) Obstructive sleep apnea (adult) (pediatric); Translations: [Obstructive sleep apnea (adult)(pediatric)] 07-11-2022 Chronic Residual codes; unclassified (10 sources) Insomnia; Translations: [Insomnia, unspecified] 10-03-2022 Episodic Residual codes; unclassified (4 sources) Insomnia, unspecified; Translations: [Insomnia, unspecified] 10-03-2022 Episodic Unclassified (2 sources) F43.10 - Post-traumatic stress disorder, unspecified,F41.9 - Anxiety disorder, unspecified Viral infection (6 sources) Disease caused by 2019-nCoV; Translations: [COVID-19] 01-03-2024 Episodic Past or Other Problems Problem Classification Problem Date Documented Da te Episodic/Chronic Other screening for suspected conditions (not mental disorders or infectious disease) (7 sources) Patient encounter status; Translations: [Encounter for screening for malignant neoplasm of prostate] Onset: 07-22-2024 04-16-2024 Episodic Results Test Name Value Interpretation Reference Range Facility Internal Medicine Office Vis itocallie 03-03-2025 Internal Medicine Office Visit [facility] Internal Medicine [facility] [facility] [place] [address] OFFICE VISIT Date of Service: 03/03/25 MR#: [id number] Acct: [id number] Name: WILL NICHOLS Rep #: [id number] : 1970 Provider: Dr. Nito valenzuela MD Age/Sex: 55/M Location: [facility] Status: Signed with Addenda ADDENDUM by GABRIELA Hope on 03/04/25 at 1743 Office Procedure Documentation entered by Evelyn Hope MA 03/04/25 17:43: Immunizations Flucelvax [id number] (PF) 45 mcg (15 mcg x 3)/0.5 mL IM syringe Performing Provider: Nito Canseco MD Performing Location: [facility] Administered by: Evelyn Hope MA on 03/04/25 17:42 Dose Route Admin Location Dispensed Lot Number Expiration Date Package NDC NDC News Librarian 0.5 mL IM Left Deltoid 0.5 mL [id number] 09/05/25 [id number] [employer]. VIS Given Date VIS Provided VIS Publication Date 03/03/25 Single Vaccine 24 Eligibility Eligibility Date Funding Source Not Applicable Date cc: * Signed Intake Vital Signs 10/28/24 14:18 02/24/25 09:41 03/03/25 14:05 Height 5 ft 11 in 5 ft 11 in 5 ft 11 in Weight: 232 lb BMI 32.3 BP 122/84 H Blood Pressure Location Lt brachial Position Sitting Respiration 14 Pulse 72 Pulse Source Monitor Temp 97.5 F L Temp Source Temporal Pulse Oximetry (%) 96 Oxygen Delivery Method room air Intake Visit Reasons: 4 M FU Chief Complaint: Follow-up chronic conditions Publicity Manager Required: No Is patient in pain?: No Allergies No Known Allergies Allergy (Verified 03/03/25 14:03) Medications ???Medication ???Instructions ???Recorded ???Confirmed ???Type multivitamin 1 tab PO DAILY 07/11/22 03/03/25 H istory tirzepatide 5 mg/0.5 mL 5 mg (0.5 mL) subcut QWEEK 3 10/2803/03/25 Rx subcutaneous pen injector months #6.5 mL trazodone 50 mg tablet 100 mg (2 x 50 mg) PO QHS PRN 10/2703/03/25 Rx insomnia 3 months #180 tabs prednisone 20 mg tablet See Rx Instructions PO QDAY #20 03/03/25 Rx tabs lisinopril 20 1 tab PO BID #180 tabs 12/22/24 Rx mg-hydrochlorothiazi de 12.5 mg tablet hydroxyzine HCl 25 mg tablet 25 mg PO BID PRN anxiety #60 tabs 12/25/24 03/03/25 Rx buspirone 7.5 mg tablet 7.5 mg PO BID #60 tabs 01/11/25 Rx duloxetine 30 mg capsule,delayed 90 mg (3 x 30 mg) PO QDAY 3 months 02/15/25 03/03/25 Rx release #270 caps [facility] Medical History Anxiety disorder with panic attacks Falls Sinusitis, acute Screening for prostate cancer Flu vaccine need Type 2 diabetes mellitus Impacted cerumen of both ears Borderline type 2 diabetes mellitus Insomnia PTSD (post-traumatic stress disorder) Anxiety and depression Preventative health care MOISES treated with BiPAP Obstructive sleep apnea Depression Anxiety Seasonal allergies Diabetes Arthritis Hypertension Surgical History History of knee replacement Family History Mother Anemia Arthritis Bleeding disorder Hypertension High cholesterol Factor V deficiency DVT (deep venous thrombosis) Father Arthritis Hypertension Diabetes CVA (cerebral vascular accident) Sister Bleeding disorder Factor V deficiency Grandmother CVA (cerebral vascular accident) Social History Smoking Status: Never smoker alcohol intake: current alcohol intake frequency: a few times a month Alcohol type: beer and hard liquor substance use type: does not use what type of physical activity do you participate in: walking frequency: 1-2 times per week seatbelt use: always do you feel safe at home: Yes HPI HPI Chief Complaint: Follow-up chronic conditions Details: WILL NICHOLS, is a 55-year-old male with HTN, DMII, anxiety, depression, and MOISES presenting for follow-up. The patient reports that his anxiety has improved since his last visit, though he continues to experience significant fatigue in the evenings. He is currently taking duloxetine 90 mg and bu spirone. He previously tried Vraylar, which he liked for the increased energy it provided, but discontinued it due to side effects of hand tremors, feeling cold, and insomnia. He is currently seeking therapy through [place] [id number], but has not yet been scheduled due to high demand. He reports going to bed much earlier than usual, around 7:30-8:30 PM, and waking up around 4:30 AM. Previously, he would go to bed around 9:30-10:00 (more content not included)... [facility] Surgery Visit Reporton 02-24 Surgery Visit Report [facility] [place] [address] OFFICE VISIT Date of Service: 02/24/25 MR#: [id number] Acct: [id number] Name: WILL NICHOLS Rep #: [id number] : 1970 Provider: Dr. Marichuy cassidy MD Age/Sex: 55/M Location: [facility] Status: Signed Intake Vital Signs 12/25/24 08:08 02/24/25 09:41 Height 5 ft 11 in 5 ft 11 in Weight: 231 lb 240 lb 4 oz BMI 32.2 33.5 BP 128/80 H 129/88 H Blood Pressure Location Lt brachial Rt brachial Position Sitting Sitting Respiration 18 18 Pulse 77 67 Pulse Source Monitor Monitor Temp 97.8 F 97.2 F L Temp Source Temporal Temporal Pulse Oximetry (%) 99 98 Oxygen Delivery Method room air room air Intake Visit Reasons: MASS/LUMP ON BACK Chief Complaint: mass/ lump on back Is patient in pain?: Yes Allergies No Known Allergies Allergy (Verified 02/24/25 09:41) Medications ???Medication ???Instructions ???Recorded ???Confirmed ???Type multivitamin 1 tab PO DAILY 07/11/22 02/24/25 H istory tirzepatide 5 mg/0.5 mL 5 mg (0.5 mL) subcut QWEEK 3 10/2802/24/25 Rx subcutaneous pen injector months #6.5 mL trazodone 50 mg tablet 100 mg (2 x 50 mg) PO QHS PRN 10/2702/24/25 Rx insomnia 3 months #180 tabs prednisone 20 mg tablet See Rx Instructions PO QDAY #20 02/24/25 Rx tabs lisinopril 20 1 tab PO BID #180 tabs 12/22/24 Rx mg-hydrochlorothiazi de 12.5 mg tablet hydroxyzine HCl 25 mg tablet 25 mg PO BID PRN anxiety #60 tabs 12/25/24 02/24/25 Rx buspirone 7.5 mg tablet 7.5 mg PO BID #60 tabs 01/11/25 Rx duloxetine 30 mg capsule,delayed 90 mg (3 x 30 mg) PO QDAY 3 months 02/15/25 02/24/25 Rx release #270 caps PFSH Medical History Anxiety disorder with panic attacks Falls Sinusitis, acute Screening for prostate cancer Flu vaccine need Type 2 diabetes mellitus Impacted cerumen of both ears Borderline type 2 diabetes mellitus Insomnia PTSD (post-traumatic stress disorder) Anxiety and depression Preventative health care MOISES treated with BiPAP Obstructive sleep apnea Depression Anxiety Seasonal allergies Diabetes Arthritis Hypertension Surgical History History of knee replacement Family History Mother Anemia Arthritis Bleeding disorder Hypertension High cholesterol Factor V deficiency DVT (deep venous thrombosis) Father Arthritis Hypertension Diabetes CVA (cerebral vascular accident) Sister Bleeding disorder Factor V deficiency Grandmother CVA (cerebral vascular accident) Social History Smoking Status: Never smoker alcohol intake: current alcohol intake frequency: a few times a month Alcohol type: beer and hard liquor substance use type: does not use what type of physical activity do you participate in: walking frequency: 1-2 times per week seatbelt use: always do you feel safe at home: Yes HPI HPI HPI: 55-year-old male presents due to right lower back subcutaneous mass. Patient states that it for about the last 6 months. Patient states it does cause pain on palpation as well as send pain down his hip with palpation. Patient had previous CT of the the lumbar spine did not show anything obvious in this area on CAT scan. ROS General General: Yes weight change and fatigue; No appetite, colon cancer, breast cancer or weakness HEENT HEENT: No difficulty swallowing, eye injury, eye surgery, swollen glands or hoarseness Endo Endocrine: Yes diabetes mellitus; No thyroid disease, thyroid cancer, Hair loss, heat intolerance or cold intolerance Skin Skin: No rash or changing moles Musc Musculoskeletal: Yes back problems and arthritis; No rheumatoid arthritis, gout or joint pain Cardio Cardiovascular: Yes high blood pressure; No murmur, pacemaker, heart disease, atrial fibrillation, heart attack, heart stent, palpitations, shortness of breath with exertion or chest pain Psych Psychiatric: Yes depression and anxiety; No hearing voices Resp Respiratory: No shortness of breath, Yes sleep apnea, No cough, No COPD, No asthma, No emphysema and No wheezing Gastro Gastrointestinal: No abdominal pain, No nausea or vomiting, No diarrhea, No constipation, No blood in stool, No acid reflux, No hemorrhoids, No ulcers, No gallbladder problem and No black,tarry stools Narendra Hematologic: No blood thinners, No blood disorders, No bleeding, No anemia and No blood clots Neuro Neurologic: No numbness, No tingling and No weakness Exam Const General: cooperative, healthy ap (more content not included)... [facility] Spine Lumbar without Contras ton 02-05-2025 Spine Lumbar without Contrast [facility] Imaging Services [address] [place] [address] Spine Lumbar without Contrast MR#: [id number] Acct: [id number] Name: WILL NICHOLS Rep #: [id number] : 1970 M 55 From: Humera Meade MD PCP: Dr. Nito Canseco MD Status: REG CLI Study: Spine Lumbar without Contrast Date of Exam: Exam# [id number] Ordering Dr: Pauline Crockett PROCEDURE: SPINE LUMBAR WITHOUT CONTRAST 02/05/2025 REASON FOR EXAM: LOW BACK PAINFUL LUMP TECHNIQUE: Procedure Code: CTSPL Modality: CT Procedure: SPINE LUMBAR WITHOUT CONTRAST Coronal and Sagittal reconstruction series were provided. One or more dose reduction techniques were used (e.g., Automated exposure control, adjustment of the mA and/or kV according to patient size, use of iterative reconstruction technique COMPARISON: None. RADIATION DOSE SUMMARY: CTDlvol: 27.34 mGy DLP: 1177.09 mGycm FINDINGS: Vertebrae: No acute bony abnormalities. Alignment: Normal. L1-2: Disc bulge. Facet joint arthropathy. Mild bilateral foramina stenosis. Mild canal stenosis. L2-3: Disc bulge. Facet joint arthropathy. Mild bilateral foramina stenosis. Moderate canal stenosis. L3-4: Disc bulge. Facet joint arthropathy. Moderate bilateral foramina stenosis. Moderate canal stenosis. L4-5: Disc bulge. Facet joint arthropathy. Moderate bilateral foramina stenosis. No canal stenosis. L5-S1: No foraminal or canal stenosis. Sacrum: No acute bony abnormalities. CT/Spine Lumbar without Contrast IMPRESSION: Moderate canal stenosis and moderate bilateral foramina stenosis at L3-L4. Moderate canal stenosis at L2-L3. Moderate bilateral foramina stenosis at L4-L5. Reading Location: [facility] CC: EBER Crockett; Dr. Nito Canseco MD Card Stripper: Signed Normal [facility] Absolute lymphocyte countOrd ered By: Nito Canseco on 01-04-2025 Lymphocytes Auto (Unsp spec) [#/Vol] 1.49 10*3/uL 0.83-4.51 [facility] Absolute neutrophil countOrd ered By: Nito Canseco on 01-04-2025 Neutrophils (Bld) [#/Vol] 3.2 10*3/uL 2.0-7.7 [facility] Anion gap in Serum or Plasma Ordered By: Nito Canseco on 01-04-2025 Anion gap [Moles/Vol] 10 mmol/L 5-15 [facility] Automated lymphocyte count a s percentage of total leukocytesOrdered By: Nito Canseco on 01-04-2025 Lymphocytes/100 WBC Auto (Unsp spec) 27.5 % 19-41 [facility] BUN/creatinine ratioOrdered By: Nito Canseco on 01-04-2025 Urea nitrogen/Creatinine [Mass ratio] 12.3 mg/mg 10-20 [facility] Basophil percentageOrdered B y: Nito Canseco on 01-04-2025 Basophils/100 WBC (Bld) 1.1 % High 0-1 [facility] Bilirubin, totalOrdered By: Nito Canseco on 01-04-2025 Bilirubin [Mass/Vol] 0.56 mg/dL 0.00-1.30 [facility] CBC W/Diff, Automatedon Absolute Lymph 1.49 X10 3/uL Normal 0.83-4.51 [facility] Comment on above: Performed By: #### L 506.0400, L500.4050, L100.0100, L501.9985, L501.9520 #### [facility] [address] [place], [address] Absolute Neut 3.2 X10 3/uL Normal 2.0-7.7 [facility] Comment on above: Performed By: #### L 506.0400, L500.4050, L100.0100, L501.9985, L501.9520 #### [facility] [address] [place], [address] Basophils/100 WBC (Bld) 1.1 % High 0-1 [facility] Comment on above: Performed By: #### L 506.0400, L500.4050, L100.0100, L501.9985, L501.9520 #### [facility] [address] [place], [address] Eosinophils/100 WBC (Bld) 1.7 % Normal 0-5 [facility] Comment on above: Performed By: #### L 506.0400, L500.4050, L100.0100, L501.9985, L501.9520 #### [facility] [address] [place], [address] Erythrocyte distribution width (RBC) [Ratio] 13.3 % Normal 11.6-14.6 [facility] Comment on above: Performed By: #### L 506.0400, L500.4050, L100.0100, L501.9985, L501.9520 #### [facility] [address] [place], [address] Hematocrit (Bld) [Volume fraction] 47.5 % Normal 40-54 [facility] Comment on above: Performed By: #### L 506.0400, L500.4050, L100.0100, L501.9985, L501.9520 #### [facility] [address] [place], [address] Hemoglobin (Bld) [Mass/Vol] 16.1 g/dL Normal 13.0-16.5 [facility] Comment on above: Performed By: #### L 506.0400, L500.4050, L100.0100, L501.9985, L501.9520 #### [facility] [address] [place], [address] IG% 0.200 Normal 0.0-0.9 [facility] Comment on above: Result Comment: IG% - Immature Granulocytes (promyelocytes, myelocytes and metamyelocytes) > 1% indicates that a LEFT SHIFT is Present. Performed By: #### L 506.0400, L500.4050, L100.0100, L501.9985, L501.9520 #### [facility] [address] [place], [address] Lymphocytes/100 WBC (Bld) 27.5 % Normal 19-41 [facility] Comment on above: Performed By: #### L 506.0400, L500.4050, L100.0100, L501.9985, L501.9520 #### [facility] [address] [place], [address] MCH (RBC) [Entitic mass] 31.6 pg Normal 27.0-32.0 [facility] Comment on above: Performed By: #### L 506.0400, L500.4050, L100.0100, L501.9985, L501.9520 #### [facility] [address] [place], [address] MCHC (RBC) [Mass/Vol] 33.9 g/dL Normal 32-36 [facility] Comment on above: Performed By: #### L 506.0400, L500.4050, L100.0100, L501.9985, L501.9520 #### [facility] [address] [place], [address] MCV (RBC) [Entitic vol] 93.1 fL Normal 80-94 [facility] Comment on above: Performed By: #### L 506.0400, L500.4050, L100.0100, L501.9985, L501.9520 #### [facility] [address] [place], [address] Monocytes/100 WBC (Bld) 10.5 % High 0-10 [facility] Comment on above: Performed By: #### L 506.0400, L500.4050, L100.0100, L501.9985, L501.9520 #### [facility] [address] [place], [address] Neutrophils/100 WBC (Bld) 59.0 % Normal 47-70 [facility] Comment on above: Performed By: #### L 506.0400, L500.4050, L100.0100, L501.9985, L501.9520 #### [facility] [address] [place], [address] Nucleated RBC (Bld) [#/Vol] 0 10*3/uL Normal 0-5 [facility] Comment on above: Performed By: #### L 506.0400, L500.4050, L100.0100, L501.9985, L501.9520 #### [facility] [address] [place], [address] Platelet mean volume (Bld) [Entitic vol] 9.3 fL Normal 6.2-12.0 [facility] Comment on above: Performed By: #### L 506.0400, L500.4050, L100.0100, L501.9985, L501.9520 #### [facility] [address] [place], [address] Platelets (Bld) [#/Vol] 278 10*3/uL Normal 150-450 [facility] Comment on above: Performed By: #### L 506.0400, L500.4050, L100.0100, L501.9985, L501.9520 #### [facility] [address] [place], [address] RBC (Bld) [#/Vol] 5.10 10*6/uL Normal 4.6-6.2 [facility] Comment on above: Performed By: #### L 506.0400, L500.4050, L100.0100, L501.9985, L501.9520 #### [facility] [address] [place], [address] RDW SD 45.6 fl High 35.1-43.9 [facility] Comment on above: Performed By: #### L 506.0400, L500.4050, L100.0100, L501.9985, L501.9520 #### [facility] [address] [place], [address] WBC (Bld) [#/Vol] 5.4 10*3/uL Normal 4.4-11.0 [facility] Comment on above: Performed By: #### L 506.0400, L500.4050, L100.0100, L501.9985, L501.9520 #### [facility] [address] [place], [address] Carbon dioxide, total [Moles /volume] in Central venous bloodOrdered By: Nito Canseco on 01-04-2025 CO2 [Moles/Vol] 27.6 mmol/L 21.0-32.0 [facility] Chloride assayOrdered By: Ericka Canseco on 01-04-2025 Chloride [Moles/Vol] 99 mmol/L 98-108 [facility] Comprehensive Metabolic Prof ilon 01-04-2025 Albumin [Mass/Vol] 4.3 g/dL Normal 3.5-5.0 [facility] Comment on above: Performed By: #### L 506.0400, L500.4050, L100.0100, L501.9985, L501.9520 #### [facility] [address] [place], [address] Albumin/Globulin [Mass ratio] 1.5 {ratio} Normal 0.9-2.4 [facility] Comment on above: Performed By: #### L 506.0400, L500.4050, L100.0100, L501.9985, L501.9520 #### [facility] [address] [place], [address] ALK PHOS 49 U/L Normal 40-129 [facility] Comment on above: Performed By: #### L 506.0400, L500.4050, L100.0100, L501.9985, L501.9520 #### [facility] [address] [place], [address] ALT [Catalytic activity/Vol] 24 U/L Normal <=46 [facility] Comment on above: Performed By: #### L 506.0400, L500.4050, L100.0100, L501.9985, L501.9520 #### [facility] [address] [place], [address] AST [Catalytic activity/Vol] 26 U/L Normal <=37 [facility] Comment on above: Performed By: #### L 506.0400, L500.4050, L100.0100, L501.9985, L501.9520 #### [facility] [address] [place], [address] Bilirubin [Mass/Vol] 0.56 mg/dL Normal 0.00-1.30 [facility] Comment on above: Performed By: #### L 506.0400, L500.4050, L100.0100, L501.9985, L501.9520 #### [facility] [address] [place], [address] BUN/CRE 12.3 RATIO Normal 10-20 [facility] Comment on above: Performed By: #### L 506.0400, L500.4050, L100.0100, L501.9985, L501.9520 #### [facility] [address] [place], [address] Calcium [Mass/Vol] 9.6 mg/dL Normal 7.6-11.0 [facility] Comment on above: Performed By: #### L 506.0400, L500.4050, L100.0100, L501.9985, L501.9520 #### [facility] [address] [place], [address] Chloride [Moles/Vol] 99 mmol/L Normal 98-108 [facility] Comment on above: Performed By: #### L 506.0400, L500.4050, L100.0100, L501.9985, L501.9520 #### [facility] [address] [place], [address] CO2 [Moles/Vol] 27.6 mmol/L Normal 21.0-32.0 [facility] Comment on above: Performed By: #### L 506.0400, L500.4050, L100.0100, L501.9985, L501.9520 #### [facility] [address] [place], [address] Creatinine [Mass/Vol] 0.92 mg/dL Normal 0.70-1.20 [facility] Comment on above: Performed By: #### L 506.0400, L500.4050, L100.0100, L501.9985, L501.9520 #### [facility] [address] [place], [address] GAP 10 Normal 5-15 [facility] Comment on above: Performed By: #### L 506.0400, L500.4050, L100.0100, L501.9985, L501.9520 #### [facility] [address] [place], [address] GFR/1.73 sq M.predicted among non-blacks MDRD (S/P/Bld) [Vol rate/Area] 99 mL/min/{1.73_m2} Normal >60 [facility] Comment on above: Result Comment: mL/m in/1.73m2 CKD-EPI Creatinine Equation (2020) Performed By: #### L 506.0400, L500.4050, L100.0100, L501.9985, L501.9520 #### [facility] [address] [place], [address] Globulin (S) [Mass/Vol] 2.8 g/dL Normal 2.2-4.2 [facility] Comment on above: Performed By: #### L 506.0400, L500.4050, L100.0100, L501.9985, L501.9520 #### [facility] [address] [place], [address] Glucose [Mass/Vol] 102 mg/dL High 70-99 [facility] Comment on above: Performed By: #### L 506.0400, L500.4050, L100.0100, L501.9985, L501.9520 #### [facility] [address] [place], [address] Potassium [Moles/Vol] 5.1 mmol/L Normal 3.3-5.1 [facility] Comment on above: Performed By: #### L 506.0400, L500.4050, L100.0100, L501.9985, L501.9520 #### [facility] [address] [place], [address] Sodium [Moles/Vol] 136 mmol/L Normal 133-145 [facility] Comment on above: Performed By: #### L 506.0400, L500.4050, L100.0100, L501.9985, L501.9520 #### [facility] [address] [place], [address] T PROT 7.0 g/dL Normal 5.9-8.4 [facility] Comment on above: Performed By: #### L 506.0400, L500.4050, L100.0100, L501.9985, L501.9520 #### [facility] [address] [place], [address] Urea nitrogen [Mass/Vol] 11 mg/dL Normal 4-19 [facility] Comment on above: Performed By: #### L 506.0400, L500.4050, L100.0100, L501.9985, L501.9520 #### [facility] [address] [place], [address] Eosinophil percentageOrdered By: Nito Canseco on 09-08-2025 Eosinophils/100 WBC (Bld) 1.7 % 0-5 [facility] Erythrocyte distribution wid th ratioOrdered By: Nito Canseco on 01-04-2025 Erythrocyte distribution width (RBC) [Ratio] 13.3 % 11.6-14.6 [facility] Erythrocyte distribution wid th standard deviationOrdered By: Nito Canseco on 01-04-2025 Erythrocyte distribution width (RBC) [Ratio] 45.6 fl High 35.1-43.9 [facility] Glomerular filtration rate ( GFR) estimation/1.73 sq m using serum, plasma, or whole bOrdered By: julietteoakhurstemmanuel Canseco on 01-04-2025 GFR/1.73 sq M.predicted among non-blacks MDRD (S/P/Bld) [Vol rate/Area] 99 mL/min/{1.73_m2} >60 [facility] Comment on above: mL/min/1.73m2 CKD-EP I Creatinine Equation (2020) Hematocrit Auto (Bld) [Volum e fraction]Ordered By: Nito Canseco on 01-04-2025 Hematocrit (Bld) [Volume fraction] 47.5 % 40-54 [facility] Hemoglobin A1con 01-04-2025 HbA1c (Bld) [Mass fraction] 5.4 % Normal <=5.6 [facility] Comment on above: Result Comment: Norm al < 5.7 % Prediabetic 5.7 - 6.4 % Diabetic >or= 6.5 % Please note range changes. Performed By: #### L 506.0400, L500.4050, L100.0100, L501.9985, L501.9520 #### [facility] [address] [place], [place], [address] Hemoglobin A1c percentageOrd ered By: Nito Canseco on 01-04-2025 HbA1c (Bld) [Mass fraction] 5.4 % <5.7 [facility] Comment on above: Normal < 5.7 % Predi abetic 5.7 - 6.4 % Diabetic >or= 6.5 % Please note range changes. Hemoglobin measurementOrdere d By: Nito Canseco on 01-04-2025 Hemoglobin (Bld) [Mass/Vol] 16.1 g/dL 13.0-16.5 [facility] Immature granulocytes/100 WB C Auto (Bld)Ordered By: Nito Canseco on 01-04-2025 Immature granulocytes/100 WBC (Bld) 0.200 % 0.0-0.9 [facility] Comment on above: IG% - Immature Granu locytes (promyelocytes, myelocytes and metamyelocytes) > 1% indicates that a LEFT SHIFT is Present. Laboratory - Chemistry and C hemistry - challengeOrdered By: Nito Canseco on 01-04-2025 AST [Catalytic activity/Vol] 26 U/L <38 [facility] MCV (mean corpuscular volume ) determinationOrdered By: Nito Canseco on 01-04-2025 MCV (RBC) [Entitic vol] 93.1 fL 80-94 [facility] Mean corpuscular hemoglobin (MCH) determinationOrdered By: Nito Canseco on 01-04-2025 MCH (RBC) [Entitic mass] 31.6 pg 27.0-32.0 [facility] Mean corpuscular hemoglobin concentration (MCHC) determinationOrdered By: Nito Canseco on 01-04-2025 MCHC (RBC) [Mass/Vol] 33.9 g/dL 32-36 [facility] Mean platelet volume determi nationOrdered By: Nito Canseco on 01-04-2025 Platelet mean volume (Bld) [Entitic vol] 9.3 fL 6.2-12.0 [facility] Monocyte percentageOrdered B y: Nito Canseco on 01-04-2025 Monocytes/100 WBC (Bld) 10.5 % High 0-10 [facility] Neutrophil percentageOrdered By: Nito Canseco on 01-04-2025 Neutrophils/100 WBC (Bld) 59.0 % 47-70 [facility] Nucleated red blood cell per centageOrdered By: Nito Canseco on 01-04-2025 Nucleated RBC/100 WBC (Bld) [Ratio] 0 % 0-5 [facility] Platelet countOrdered By: Ericka Canseco on 01-04-2025 Platelets (Bld) [#/Vol] 278 10*3/uL 150-450 [facility] Potassium measurement (mass/ volume)Ordered By: Nito Canseco on 01-04-2025 Potassium (Unsp spec) [Mass/Vol] 5.1 mmol/L 3.3-5.1 [facility] RBC Auto (Bld) [#/Vol]Ordere d By: Nito Canseco on 01-04-2025 RBC (Bld) [#/Vol] 5.10 10*6/uL 4.6-6.2 [facility] Serum creatinine measurement (mass/volume)Ordered By: Nito Canseco on 01-04-2025 Creatinine [Mass/Vol] 0.92 mg/dL 0.70-1.20 [facility] Serum globulin measurementOr dered By: Nito Canseco on 01-04-2025 Globulin (S) [Mass/Vol] 2.8 g/dL 2.2-4.2 [facility] Serum glucose measurement (m ass/volume)Ordered By: Nito Canseco on 01-04-2025 Glucose [Mass/Vol] 102 mg/dL High 70-99 [facility] Serum or plasma alanine zimmerman otransferase (ALT) measurementOrdered By: Nito Canseco on 01-04-2025 ALT [Catalytic activity/Vol] 24 U/L <47 [facility] Serum or plasma albumin quentin urement (mass/volume)Ordered By: Nito Canseco on 01-04-2025 Albumin [Mass/Vol] 4.3 g/dL 3.5-5.0 [facility] Serum or plasma albumin/glob ulin mass ratioOrdered By: Nito Canseco on 01-04-2025 Albumin/Globulin [Mass ratio] 1.5 {ratio} 0.9-2.4 [facility] Serum or plasma alkaline josé sphatase measurementOrdered By: Nito Canseco on 01-04-2025 ALP [Catalytic activity/Vol] 49 U/L 40-129 [facility] Serum or plasma calcium quentin urement (mass/volume)Ordered By: Dilciakrystynaemmanuel Rodriguezkendalldeb on 01-04-2025 Calcium [Mass/Vol] 9.6 mg/dL 7.6-11.0 [facility] Serum or plasma urea nitroge n measurement (mass/volume)Ordered By: Nito Rodriguezkendalldeb on 01-04-2025 Urea nitrogen [Mass/Vol] 11 mg/dL 4-19 [facility] Sodium levelOrdered By: Erickajuliette garcia Michaelkendalldeb on 01-04-2025 Sodium [Moles/Vol] 136 mmol/L 133-145 [facility] T4 Free Directon 01-04-2025 T4 FREE DIRECT 1.10 ng/dL Normal 0.76-1.46 [facility] Comment on above: Performed By: #### L 506.0400, L500.4050, L100.0100, L501.9985, L501.9520 #### [facility] [address] [place], [address] T4 freeOrdered By: Erickajulietteradha Michaelkendalldeb on 01-04-2025 Free T4 [Mass/Vol] 1.10 ng/dL 0.76-1.46 [facility] TSH DL <= 0.005 mIU/L QnOrde red By: Erickajuliettekrystynaemmanuel Rodriguezkendalldeb on 01-04-2025 TSH Qn 1.280 uIU/mL 0.300-4.200 [facility] Thyroid Stim Hormone (TSH)on 01-04-2025 TSH 1.280 uIU/mL Normal 0.300-4.200 [facility] Comment on above: Performed By: #### L 506.0400, L500.4050, L100.0100, L501.9985, L501.9520 #### [facility] [address] [place], [address] Total proteinOrdered By: Jonathan khanna Michaelkendalldeb on 01-04-2025 Protein [Mass/Vol] 7.0 g/dL 5.9-8.4 [facility] White blood cell (WBC) count Ordered By: Nito Canseco on 01-04-2025 WBC (Bld) [#/Vol] 5.4 10*3/uL 4.4-11.0 [facility] Internal Medicine Office Vis iton 12-25-2024 Internal Medicine Office Visit [facility] [address] [place] [address] [place] [address] OFFICE VISIT Date of Service: 12/25/24 MR#: [id number] Acct: [id number] Name: WILL NICHOLS Rep #: [id number] : 1970 Provider: Dr. Nito valenzuela MD Age/Sex: 54/M Location: [facility] Status: Signed Intake Vital Signs 12/17/24 13:01 12/25/24 08:08 Height 5 ft 11 in 5 ft 11 in Weight: 227 lb 231 lb BMI 31.6 32.2 BP 136/92 H 128/80 H Blood Pressure Location Lt brachial Lt brachial Position Sitting Sitting Respiration 16 18 Pulse 73 77 Pulse Source Monitor Monitor Temp 97 F L 97.8 F Temp Source Temporal Temporal Pulse Oximetry (%) 98 99 Oxygen Delivery Method room air room air Intake Visit Reasons: ANXIETY / DEPRESSION Chief Complaint: ANXIETY/ DEPRESSION Is patient in pain?: Yes (5 lower back ) Allergies No Known Allergies Allergy (Verified 12/25/24 08:07) Medications ???Medication ???Instructions ???Recorded ???Confirmed ???Type multivitamin 1 tab PO DAILY 07/11/22 12/25/24 H istory duloxetine 30 mg capsule,delayed 90 mg (3 x 30 mg) PO QDAY 3 months 10/12/24 12/25/24 Rx release #270 caps tirzepatide 5 mg/0.5 mL 5 mg (0.5 mL) subcut QWEEK 3 10/2812/25/24 Rx subcutaneous pen injector months #6.5 mL trazodone 50 mg tablet 100 mg (2 x 50 mg) PO QHS PRN 10/2712/25/24 Rx insomnia 3 months #180 tabs cyclobenzaprine 10 mg tablet 10 mg PO HS PRN muscle spasm #10 0 12/17/24 12/25/24 Rx tabs prednisone 20 mg tablet See Rx Instructions PO QDAY #20 12/25/24 Rx tabs lisinopril 20 1 tab PO BID #180 tabs 12/22/24 Rx mg-hydrochlorothiazi de 12.5 mg tablet cariprazine 1.5 mg capsule 1.5 mg PO QDAY #30 caps 12/25/24 0 12/25/24 Rx (Vraylar) hydroxyzine HCl 25 mg tablet 25 mg PO BID PRN anxiety #60 tabs 12/25/24 12/25/24 Rx Nurse's Note: pt reports that he is having increased anxiety. [facility] Medical History (Updated 12/25/24 @ 13:[address] Nito Canseco MD) Anxiety disorder with panic attacks [place] Sinusitis, acute Screening for prostate cancer Flu vaccine need Type 2 diabetes mellitus Impacted cerumen of both ears Borderline type 2 diabetes mellitus Insomnia PTSD (post-traumatic stress disorder) Anxiety and depression Preventative health care MOISES treated with BiPAP Obstructive sleep apnea Depression Anxiety Seasonal allergies Diabetes Arthritis Hypertension Surgical History History of knee replacement Family History Mother Anemia Arthritis Bleeding disorder Hypertension High cholesterol Factor V deficiency DVT (deep venous thrombosis) Father Arthritis Hypertension Diabetes CVA (cerebral vascular accident) Sister Bleeding disorder Factor V deficiency Grandmother CVA (cerebral vascular accident) Social History Smoking Status: Never smoker alcohol intake: current alcohol intake frequency: a few times a month Alcohol type: beer and hard liquor substance use type: does not use what type of physical activity do you participate in: walking frequency: 1-2 times per week seatbelt use: always do you feel safe at home: Yes Questionnaire PQH-9 BMS Over the last 2 weeks, how often have you been bothered by any of the following problems? 1. Little interest or pleasure in doing things: several days 2. Feeling down, depressed, or hopeless: several days 3. Trouble falling or staying asleep, or sleeping too much: more than half the days (trouble sleeping ) 4. Feeling tired or having little energy: several days 5. Poor appetite or overeating: several days (snacking ) 6. Feeling bad about yourself - or that you are a failure or have let yourself and your family down: several days 7. Trouble concentrating on things, such as reading the newspaper or watching television: several days 8. Moving or speaking so slowly that other people could have noticed? - Or the opposite - being so fidgety or restless that you have been moving around a lot more than usual: several days (fidgety ) 9. Thoughts that you would be better off or of hurting yourself in some way: not at all Total score: 9 Source: Developed by Drs. Blayne Giraldo, Olga Vera, Eric Moreno and colleagues, with an educational hay from [employer]. OLIVE-7 BMS OLIVE-7 Feeling nervous, anxious, or on edge: 3 = Nearly every day Not being able to stop or control worryin = Nearly every day Worrying too much about different things: 3 = Nearly every day Trouble relaxin = Nearly every day Being so restless that it is hard to sit still: 3 = Nearly every day Becoming easily annoyed or irritable: 3 = Daisy (more content not included)... Normal [facility] Internal Medicine Office Vis iton 12-17-2024 Internal Medicine Office Visit [facility] [address] [place] [address] [place] [address] OFFICE VISIT Date of Service: 12/17/24 MR#: [id number] Acct: [id number] Name: WILL NICHOLS Neela Rep #: [id number] : 1970 Provider: EBER chapa Age/Sex: 54/M Location: [facility] Status: Signed Intake Vital Signs 10/28/24 14:18 12/17/24 13:01 Height 5 ft 11 in 5 ft 11 in Weight: 226 lb 8 oz 227 lb BMI 31.6 31.6 BP 114/80 136/92 H Blood Pressure Location Lt brachial Lt brachial Position Sitting Sitting Respiration 16 16 Pulse 84 73 Pulse Source Monitor Monitor Temp 97.9 F 97 F L Temp Source Temporal Temporal Pulse Oximetry (%) 99 98 Oxygen Delivery Method room air room air Intake Visit Reasons: Pain in right side of back. A week. Cont. Publicity Manager Required: No Is patient in pain?: Yes (R lower back) Pain scale (1-10): 6 Allergies No Known Allergies Allergy (Verified 12/17/24 12:53) Medications ???Medication ???Instructions ???Recorded ???Confirmed ???Type multivitamin 1 tab PO DAILY 07/11/22 12/17/24 H istory lisinopril 20 1 tab PO BID #180 tabs 06/17/24 Rx mg-hydrochlorothiazi de 12.5 mg tablet duloxetine 30 mg capsule,delayed 90 mg (3 x 30 mg) PO QDAY 3 months 10/12/24 12/17/24 Rx release #270 caps tirzepatide 5 mg/0.5 mL 5 mg (0.5 mL) subcut QWEEK 3 10/2812/17/24 Rx subcutaneous pen injector months #6.5 mL trazodone 50 mg tablet 100 mg (2 x 50 mg) PO QHS PRN 10/2712/17/24 Rx insomnia 3 months #180 tabs cyclobenzaprine 10 mg tablet 10 mg PO HS PRN muscle spasm #10 0 12/17/24 12/17/24 Rx tabs prednisone 20 mg tablet See Rx Instructions PO QDAY #20 12/17/24 Rx tabs PFSH Medical History [place] Sinusitis, acute Screening for prostate cancer Flu vaccine need Type 2 diabetes mellitus Impacted cerumen of both ears Borderline type 2 diabetes mellitus Insomnia PTSD (post-traumatic stress disorder) Anxiety and depression Preventative health care [facility] treated with BiPAP Obstructive sleep apnea Depression Anxiety Seasonal allergies Diabetes Arthritis Hypertension Surgical History History of knee replacement Family History Mother Anemia Arthritis Bleeding disorder Hypertension High cholesterol Factor V deficiency DVT (deep venous thrombosis) Father Arthritis Hypertension Diabetes CVA (cerebral vascular accident) Sister Bleeding disorder Factor V deficiency Grandmother CVA (cerebral vascular accident) Social History Smoking Status: Never smoker alcohol intake: current alcohol intake frequency: a few times a month Alcohol type: beer and hard liquor substance use type: does not use what type of physical activity do you participate in: walking frequency: 1-2 times per week seatbelt use: always do you feel safe at home: Yes HPI HPI Details: WILL NICHOLS, is a 54 M who presents to the office today for lumbar pain that started a week ago, then went away and then started back on the R side. Pt had a massage done, and it loosened up a little but really not much relief. Pt states occured w/o any known injury.He states he has tried ice, massage , heat, tens unit and ibuprofen w/ no relief. Pt states the pain is localized the the R side, he states if he sits too long that makes the pain worse. there is a spot of some sort that moves around. He has a h/o back ablation and states this feels different. Pt describes pain as a sharp sickening feeling. He states turning also makes the pain worse. Pt states it doesn't hurt too bad if he is not sitting or moving the wrong way. Pt states the pain will get as bad as a 9/10. Pt denies loss of bowel or bladder control, or any radiation into other parts. ROS Const Constitutional: No body ache, chills, excessive sweating, fatigue, fever(s), frequent falls, headache(s), snoring, weakness, sleep problems or change in appetite Eyes Eyes: No blurry vision, change in vision, eye pain or Light sensitivity ENT ENT: No abnormal hearing, ear or mastoid pain, tinnitus, nasal congestion, headache(s), neck pain or sore throat Resp Respiratory: No cough, shortness of breath, snoring or wheezing Cardio Cardiology: No chest pain at rest, chest pain with exertion, excessive sweating, shortness of breath, dyspnea on exertion, lightheadedness, orthopnea or palpitations Gastro GI: No abdominal pain, change in bowel habits, constipation, cramping, diarrhea, nausea/dyspepsia or vomiting Genitourinary Male: No burning urination, painful urination, urinary inc (more content not included)... Normal [facility] Internal Medicine Office Vis tess 10-28-2024 Internal Medicine Office Visit [facility] [address] [place] [address] [place] [address] OFFICE VISIT Date of Service: 10/28/24 MR#: [id number] Acct: [id number] Name: WILL NICHOLS Rep #: [id number] : 1970 Provider: Dr. Nito valenzuela MD Age/Sex: 54/M Location: [facility] Status: Signed Intake Vital Signs 07/22/24 10:54 09/30/24 09:11 10/28/24 14:18 Height 5 ft 11 in 5 ft 11 in 5 ft 11 in Weight: 226 lb 8 oz BMI 31.6 BP 114/80 Blood Pressure Location Lt brachial Position Sitting Respiration 16 Pulse 84 Pulse Source Monitor Temp 97.9 F Temp Source Temporal Pulse Oximetry (%) 99 Oxygen Delivery Method room air Intake Visit Reasons: 3 M FU Chief Complaint: fu Publicity Manager Required: No Accompanied by: Self Is patient in pain?: No Allergies No Known Allergies Allergy (Verified 10/28/24 14:12) Medications ???Medication ???Instructions ???Recorded ???Confirmed ???Type multivitamin 1 tab PO DAILY 07/11/22 10/28/24 H istory trazodone 50 mg tablet 100 mg (2 x 50 mg) PO QHS PRN 07/2010/28/24 Rx insomnia 3 months #180 tabs lisinopril 20 1 tab PO BID #180 tabs 06/17/24 Rx mg-hydrochlorothiazi de 12.5 mg tablet amoxicillin 875 mg tablet 875 mg PO BID #20 tabs 09/30/24 Rx duloxetine 30 mg capsule,delayed 90 mg (3 x 30 mg) PO QDAY 3 months 10/12/24 10/28/24 Rx release #270 caps tirzepatide 5 mg/0.5 mL 5 mg (0.5 mL) subcut QWEEK 3 10/2810/28/24 Rx subcutaneous pen injector months #6.5 mL PFSH Medical History Falls Sinusitis, acute Screening for prostate cancer Flu vaccine need Type 2 diabetes mellitus Impacted cerumen of both ears Borderline type 2 diabetes mellitus Insomnia PTSD (post-traumatic stress disorder) Anxiety and depression Preventative health care [facility]ISES treated with BiPAP Obstructive sleep apnea Depression Anxiety Seasonal allergies Diabetes Arthritis Hypertension Surgical History History of knee replacement Family History Mother Anemia Arthritis Bleeding disorder Hypertension High cholesterol Factor V deficiency DVT (deep venous thrombosis) Father Arthritis Hypertension Diabetes CVA (cerebral vascular accident) Sister Bleeding disorder Factor V deficiency Grandmother CVA (cerebral vascular accident) Social History Smoking Status: Never smoker alcohol intake: current alcohol intake frequency: a few times a month Alcohol type: beer and hard liquor substance use type: does not use what type of physical activity do you participate in: walking frequency: 1-2 times per week seatbelt use: always do you feel safe at home: Yes HPI HPI Chief Complaint: fu Details: WILL NICHOLS, is a 54-year-old male presenting with hypertension and diabetes management. He reports no recent dizziness or unsteadiness, with blood pressure readings around 110/70 mmHg. Amlodipine was held at his last visit due to lightheadedness / near syncopal episodes. The patient has Type 2 Diabetes Mellitus, with an A1c of 5.2, and is on Mounjaro. He is actively managing his weight through diet and exercise, contributing to his improved health. Other chronic medical conditions are stable. Attestation: Documentation on this patient encounter was supported using ambient scribe technology/ voice AI technology. The patient consented to recording for the purpose of documenting the encounter. Provider reviewed content of the generated note prior to signature. ROS Const Constitutional: No body ache, excessive sweating, fatigue, fever(s), frequent falls, headache(s), snoring, weakness, weight change, sleep problems or change in appetite Eyes Eyes: No blurry vision, change in vision, eye pain or Light sensitivity ENT ENT: No abnormal hearing, ear or mastoid pain, tinnitus, dizziness/vertigo, nasal congestion, headache(s), neck pain or sore throat Resp Respiratory: No cough, excessive phlegm production, hemoptysis, shortness of breath, snoring or wheezing Cardio Cardiology: No chest pain at rest, chest pain with exertion, excessive sweating, shortness of breath, dyspnea on exertion, lightheadedness, orthopnea or palpitations Gastro GI: No abdominal pain, change in bowel habits, constipation, cramping, diarrhea, nausea/dyspepsia or vomiting Genitourinary Male: No burning urination, painful urination, urinary incontinence, urinary frequency or blood in urine Musc Musculoskeletal: No abnormal gait, joint pain, back pain, limited range of motion, neck pain, numbness, stiffness, tingling or Arthritis Skin Skin: No dry (more content not included)... Normal [facility] - Hematology and Cell countsOrdered By: Nito Canseco on 10-28-2024 HbA1c (Bld) [Mass fraction] 5.2 % 4.2-6.3 [facility] Visit Reporton 0 09-30-2024 Urgent Care Visit Report [facility] [address], [address] [place] [address] OFFICE VISIT Date of Service: 09/30/24 MR#: [id number] Acct: [id number] Name: WILL NICHOLS Rep #: [id number] : 1970 Provider: SAMMY Hutson Age/Sex: 54/M Location: [facility] Status: Signed Intake Vital Signs 07/22/24 10:54 09/30/24 09:11 09/30/24 09:23 Height 5 ft 11 in 5 ft 11 in Weight: 228 lb BMI 31.8 BP 120/76 108/60 Blood Pressure Location Lt brachial Lt brachial Position Sitting Sitting Respiration 18 15 Pulse 86 64 Pulse Source Monitor NIBP Temp 98.2 F 98.4 F Temp Source Temporal Oral Pulse Oximetry (%) 97 97 Oxygen Delivery Method room air room air Intake Visit Reasons: SINUS COMP/HENDRICKSON/BILAT EAR PAIN/X9 DAYS Chief Complaint: bilat ear, HENDRICKSON, congest, drainage Publicity Manager Required: No Is patient in pain?: Yes Allergies No Known Allergies Allergy (Verified 09/30/24 09:24) Have you fallen in the past year?: No Nurse's Note: bilat ear, HENDRICKSON, congest, drainage x 2 weeks. denies fever, [facility] Medical History (Updated 07/22/24 @ 12:[address] Nito Canseco MD) Falls Sinusitis, acute Screening for prostate cancer Flu vaccine need Type 2 diabetes mellitus Impacted cerumen of both ears Borderline type 2 diabetes mellitus Insomnia PTSD (post-traumatic stress disorder) Anxiety and depression Preventative health care MOISES treated with BiPAP Obstructive sleep apnea Depression Anxiety Seasonal allergies Diabetes Arthritis Hypertension Surgical History History of knee replacement Family History Mother Anemia Arthritis Bleeding disorder Hypertension High cholesterol Factor V deficiency DVT (deep venous thrombosis) Father Arthritis Hypertension Diabetes CVA (cerebral vascular accident) Sister Bleeding disorder Factor V deficiency Grandmother CVA (cerebral vascular accident) Social History Smoking Status: Never smoker alcohol intake: current alcohol intake frequency: a few times a month Alcohol type: beer and hard liquor substance use type: does not use what type of physical activity do you participate in: walking frequency: 1-2 times per week seatbelt use: always do you feel safe at home: Yes HPI HPI Chief Complaint: bilat ear, HENDRICKSON, congest, drainage Details: WILL NICHOLS, is a 54 M who presents to the office today for [facility] evaluation at the [facility] for approximately 2 week h/o bilat ear muffled hearing/pressure, HENDRICKSON, sinus congestion with purulent postnasal drainage. Also notes having cerumen impaction in both ears which she may have addressed at this time. No complaints of fever, chills, myalgias, fatigue, runny nose, or nausea/vomiting/diar jazmín. No complaints of chest pain/shortness of breath/dyspnea on exertion. No close contacts with similar complaints. No other associated symptoms and no other alleviating/aggravat ing factors. ROS Const Constitutional: No other (as above) Exam Const General: cooperative, healthy appearing and no acute distress Nutritional Appearance: average body habitus Orientation: alert, awake and oriented x3 HENMT Head: normal to inspection Ears: hearing grossly normal bilaterally, external ears normal, TM's normal bilaterally after each ear cerumen impaction removal (see procedure below), and EAC's normal Nose: external nose normal, nares normal, septum normal and no nasal discharge Face and sinus: normal facial exam, sinuses tender (left frontal) and face symmetric Mouth: oral mucosae normal, lip normal, tongue normal and oropharynx normal Throat: posterior oropharynx normal, tonsils normal, uvula midline and postnasal drainage (Purulent) Eyes General: appearance normal, both eyes and all related structures Neck Neck: normal visual inspection, full ROM, no meningeal signs, supple and lymphadenopathy (Bilateral anterior cervical lymph node swelling/tender to palpation) Neck mass: No Thyroid: thyroid normal Chest Chest palpation inspection: normal inspection of the chest Resp Effort Inspection: normal respiratory effort and able to speak in complete sentences Auscultation: Bilateral: Clear to Auscultation Cardio Palpation: normal PMI Rate: regular rate Rhythm: regular rhythm Heart Sounds: S1 normal, S2 normal, no gallops, no murmurs and no rubs Pulses: radial pulses present GI Inspection: normal to inspection Skin General: no rashes or lesions noted Neuro General: patient alert, patient awake and patient oriented x3 Cognition: normal cognition Speech: speech normal Psych Appearance: grossly normal Mental Status: mental status grossly norm (more content not included)... Normal [facility] Office Vis itocallie 07-22-2024 Internal Medicine Office Visit [facility] [address] [place] [address] [place] [address] OFFICE VISIT Date of Service: 07/22/24 MR#: [id number] Acct: [id number] Name: WILL NICHOLS Rep #: [id number] : 1970 Provider: Dr. Nito valenzuela MD Age/Sex: 54/M Location: [facility] Status: Signed Intake Vital Signs 04/16/24 17:14 07/22/24 10:54 Height 5 ft 11 in 5 ft 11 in Weight: 228 lb BMI 31.8 BP 120/76 Blood Pressure Location Lt brachial Position Sitting Respiration 18 Pulse 86 Pulse Source Monitor Temp 98.2 F Temp Source Temporal Pulse Oximetry (%) 97 Oxygen Delivery Method room air Intake Visit Reasons: 3 M FU Chief Complaint: 3 M FU Publicity Manager Required: No Is patient in pain?: No Allergies No Known Allergies Allergy (Verified 07/22/24 10:53) Medications ???Medication ???Instructions ???Recorded ???Confirmed ???Type multivitamin 1 tab PO DAILY 07/11/22 07/22/24 H istory duloxetine 30 mg capsule,delayed 90 mg (3 x 30 mg) PO QDAY 3 months 09/30/23 07/22/24 Rx release #270 caps trazodone 50 mg tablet 100 mg (2 x 50 mg) PO QHS PRN 0607/2007/22/24 Rx insomnia 3 months #180 tabs amlodipine 5 mg tablet 5 mg PO DAILY #90 tabs 01/23/24 Rx Held on 07/22/24. Instructions: Hold due to concern for hypotension tirzepatide 5 mg/0.5 mL 5 mg (0.5 mL) subcut QWEEK 3 02/2307/22/24 Rx subcutaneous pen injector months #6.5 mL lisinopril 20 1 tab PO BID #180 tabs 06/17/24 Rx mg-hydrochlorothiazi de 12.5 mg tablet Have you fallen in the past year?: Yes (x10) Nurse's Note: pt had lab A1C performed on 07/03/24 with result of 5.6. PCP requested that A1C from today be canceled. pt has concern about falling/passing out about 10 times in the past couple months when he gets up to go to the bathroom at night [facility] Medical History (Updated 07/22/24 @ 12:[address] Nito Canseco MD) Falls Sinusitis, acute Screening for prostate cancer Flu vaccine need Type 2 diabetes mellitus Impacted cerumen of both ears Borderline type 2 diabetes mellitus Insomnia PTSD (post-traumatic stress disorder) Anxiety and depression Preventative health care MOISES treated with BiPAP Obstructive sleep apnea Depression Anxiety Seasonal allergies Diabetes Arthritis Hypertension Surgical History History of knee replacement Family History Mother Anemia Arthritis Bleeding disorder Hypertension High cholesterol Factor V deficiency DVT (deep venous thrombosis) Father Arthritis Hypertension Diabetes CVA (cerebral vascular accident) Sister Bleeding disorder Factor V deficiency Grandmother CVA (cerebral vascular accident) Social History (Reviewed 07/22/24 @ 10:54 by TIFFANIE Birch Smoking Status: Never smoker alcohol intake: current alcohol intake frequency: a few times a month Alcohol type: beer and hard liquor substance use type: does not use what type of physical activity do you participate in: walking frequency: 1-2 times per week seatbelt use: always do you feel safe at home: Yes HPI HPI Chief Complaint: 3 M FU Details: WILL NICHOLS, is a 54 M who presents to the office today for follow-up of his chronic medical conditions. Also has some concerns. He states that over the last couple of months, he has had episodes of falls/feeling unsteady typically at night when he gets up to go urinate. When this happens, he gets up and keeps moving. Has not checked his blood pressure but is concerned that his blood pressure may be too low. Blood pressure today is at 120/76 mmHg. Currently on amlodipine, lisinopril hydrochlorothiazide. He denies palpitation with these episodes. Feels well otherwise. History of diabetes mellitus type 2 and A1c done recently at 5.6. He is currently on Mounjaro and tolerating medication well. Denies nausea, vomiting or concerns with his bowel movement. Other chronic medical conditions are stable. ROS Const Constitutional: No body ache, chills, excessive sweating, fatigue, fever(s), frequent falls, headache(s), snoring, weakness, sleep problems or change in appetite Eyes Eyes: No blurry vision, change in vision, bulging eyes, floaters, visual disturbances, eye pain or Light sensitivity ENT ENT: No abnormal hearing, ear or mastoid pain, tinnitus, balance problems, nosebleed/epistaxis, nasal congestion, headache(s), neck pain or sore throat Resp Respiratory: No cough, excessive phlegm production, pain on inspiration, shortness of breath, snoring or wheezing Cardio Cardiology: No chest pain at rest, chest pain with exertion, excessive sweating, shortness of breath, dyspnea on exertion, lightheadedness, orthop (more content not included)... Normal [facility] - Hematology and Cell countsOrdered By: Nito Canseco on 07-22-2024 HbA1c (Bld) [Mass fraction] 5.5 % 4.2-6.3 [facility] Absolute lymphocyte countOrd ered By: Nito Canseco on 07-03-2024 Lymphocytes Auto (Unsp spec) [#/Vol] 1.40 10*3/uL 0.83-4.51 [facility] Absolute neutrophil countOrd ered By: Nito Canseco on 07-03-2024 Neutrophils (Bld) [#/Vol] 3.2 10*3/uL 2.0-7.7 [facility] Albumin DL <= 20 mg/L (U) [M ass/Vol]Ordered By: Nito Canseco on 07-03-2024 Urine Random Microalbumin < 12.0 mg/L NO RANGE EST. [facility] Anion gap in Serum or Plasma Ordered By: Nito Canseco on 07-03-2024 Anion gap [Moles/Vol] 10 mmol/L 5-15 [facility] Automated lymphocyte count a s percentage of total leukocytesOrdered By: Nito Canseco on 07-03-2024 Lymphocytes/100 WBC Auto (Unsp spec) 25.7 % 19-41 [facility] BUN/creatinine ratioOrdered By: [facility] Canseco on 07-03-2024 Urea nitrogen/Creatinine [Mass ratio] 13.3 mg/mg 10-20 [facility] Basophil percentageOrdered B y: Nito Canseco on 07-03-2024 Basophils/100 WBC (Bld) 0.9 % 0-1 [facility] [place] [facility] Bilirubin, totalOrdered By: Nito Canseco on 07-03-2024 Bilirubin [Mass/Vol] 0.26 mg/dL 0.00-1.30 [facility] CBC W/Diff, Automatedon Absolute Lymph 1.40 X10 3/uL Normal 0.83-4.51 [facility] Comment on above: Performed By: #### L 502.0250, L501.9910, L500.4050, L500.4100, L100.0100 #### [facility] [address] [facility] [place], [place], [id number] Absolute Neut 3.2 X10 3/uL Normal 2.0-7.7 [facility] Comment on above: Performed By: #### L 502.0250, L501.9910, L500.4050, L500.4100, L100.0100 #### [facility] [address] [place], [address] Basophils/100 WBC (Bld) 0.9 % Normal 0-1 [facility] [place] [facility] Comment on above: Performed By: #### L 502.0250, L501.9910, L500.4050, L500.4100, L100.0100 #### [facility] [address] [place], [address] Eosinophils/100 WBC (Bld) 2.4 % Normal 0-5 [facility] Comment on above: Performed By: #### L 502.0250, L501.9910, L500.4050, L500.4100, L100.0100 #### [facility] [address] [place], [address] Erythrocyte distribution width (RBC) [Ratio] 13.2 % Normal 11.6-14.6 [facility] Comment on above: Performed By: #### L 502.0250, L501.9910, L500.4050, L500.4100, L100.0100 #### [facility] [address] [place], [address] Hematocrit (Bld) [Volume fraction] 46.3 % Normal 40-54 [facility] Comment on above: Performed By: #### L 502.0250, L501.9910, L500.4050, L500.4100, L100.0100 #### [facility] [address] [place], [address] Hemoglobin (Bld) [Mass/Vol] 15.7 g/dL Normal 13.0-16.5 [facility] Comment on above: Performed By: #### L 502.0250, L501.9910, L500.4050, L500.4100, L100.0100 #### [facility] [address] [place], [address] IG% 0.400 Normal 0.0-0.9 [facility] Comment on above: Result Comment: IG% - Immature Granulocytes (promyelocytes, myelocytes and metamyelocytes) > 1% indicates that a LEFT SHIFT is Present. Performed By: #### L 502.0250, L501.9910, L500.4050, L500.4100, L100.0100 #### [facility] [address] [place], [address] Lymphocytes/100 WBC (Bld) 25.7 % Normal 19-41 [facility] Comment on above: Performed By: #### L 502.0250, L501.9910, L500.4050, L500.4100, L100.0100 #### [facility] [address] [place], [address] MCH (RBC) [Entitic mass] 31.3 pg Normal 27.0-32.0 [facility] Comment on above: Performed By: #### L 502.0250, L501.9910, L500.4050, L500.4100, L100.0100 #### [facility] [address] [place], [address] MCHC (RBC) [Mass/Vol] 33.9 g/dL Normal 32-36 [facility] Comment on above: Performed By: #### L 502.0250, L501.9910, L500.4050, L500.4100, L100.0100 #### [facility] [address] [place], [address] MCV (RBC) [Entitic vol] 92.2 fL Normal 80-94 [facility] [place] [facility] Comment on above: Performed By: #### L 502.0250, L501.9910, L500.4050, L500.4100, L100.0100 #### [facility] [address] [place], [address] Monocytes/100 WBC (Bld) 12.5 % High 0-10 [facility] [place] [facility] Comment on above: Performed By: #### L 502.0250, L501.9910, L500.4050, L500.4100, L100.0100 #### [facility] [address] [place], [address] Neutrophils/100 WBC (Bld) 58.1 % Normal 47-70 [facility] Comment on above: Performed By: #### L 502.0250, L501.9910, L500.4050, L500.4100, L100.0100 #### [facility] [address] [place], [address] Nucleated RBC (Bld) [#/Vol] 0 10*3/uL Normal 0-5 [facility] Comment on above: Performed By: #### L 502.0250, L501.9910, L500.4050, L500.4100, L100.0100 #### [facility] [address] [place], [address] Platelet mean volume (Bld) [Entitic vol] 9.9 fL Normal 6.2-12.0 [facility] Comment on above: Performed By: #### L 502.0250, L501.9910, L500.4050, L500.4100, L100.0100 #### [facility] [address] [place], [address] Platelets (Bld) [#/Vol] 286 10*3/uL Normal 150-450 [facility] Comment on above: Performed By: #### L 502.0250, L501.9910, L500.4050, L500.4100, L100.0100 #### [facility] [address] [place], [address] RBC (Bld) [#/Vol] 5.02 10*6/uL Normal 4.6-6.2 [facility] Comment on above: Performed By: #### L 502.0250, L501.9910, L500.4050, L500.4100, L100.0100 #### [facility] [address] [place], [address] RDW SD 44.7 fl High 35.1-43.9 [facility] Comment on above: Performed By: #### L 502.0250, L501.9910, L500.4050, L500.4100, L100.0100 #### [facility] [address] [place], [address] WBC (Bld) [#/Vol] 5.4 10*3/uL Normal 4.4-11.0 [facility] Comment on above: Performed By: #### L 502.0250, L501.9910, L500.4050, L500.4100, L100.0100 #### [facility] [address] [place], [address] Calculated very low density lipoprotein (VLDL) cholesterol measurementOrdered By: Nito Canseco on 07-03-2024 Calculated very low density lipoprotein (VLDL) cholesterol measurement 41 mg/dL High 5-40 [facility] VLDL Cholesterol 41 mg/dL High 5-40 [facility] Carbon dioxide, total [Moles /volume] in Central venous bloodOrdered By: Nito Canseco on 07-03-2024 CO2 [Moles/Vol] 26.3 mmol/L 21.0-32.0 [facility] Chloride assayOrdered By: Ericka Canseco on 07-03-2024 Chloride [Moles/Vol] 100 mmol/L 98-108 [facility] Comprehensive Metabolic Prof ilon 07-03-2024 Albumin [Mass/Vol] 4.4 g/dL Normal 3.5-5.0 [facility] Comment on above: Performed By: #### L 502.0250, L501.9910, L500.4050, L500.4100, L100.0100 ####[facility] [id number] [place], [address] Albumin/Globulin [Mass ratio] 1.6 {ratio} Normal 0.9-2.4 [facility] Comment on above: Performed By: #### L 502.0250, L501.9910, L500.4050, L500.4100, L100.0100 ####[facility] [id number] [place], [address] ALK PHOS 65 U/L Normal 40-129 [facility] Comment on above: Performed By: #### L 502.0250, L501.9910, L500.4050, L500.4100, L100.0100 ####[facility] [id number] [place], [address] ALT [Catalytic activity/Vol] 40 U/L Normal <=46 [facility] Comment on above: Performed By: #### L 502.0250, L501.9910, L500.4050, L500.4100, L100.0100 ####[facility] [id number] [place], [address] AST [Catalytic activity/Vol] 29 U/L Normal <=37 [facility] Comment on above: Performed By: #### L 502.0250, L501.9910, L500.4050, L500.4100, L100.0100 ####[facility] [address] [place], [address] Bilirubin [Mass/Vol] 0.26 mg/dL Normal 0.00-1.30 [facility] Comment on above: Performed By: #### L 502.0250, L501.9910, L500.4050, L500.4100, L100.0100 ####[facility] [address] [place], [address] BUN/CRE 13.3 RATIO Normal 10-20 [facility] Comment on above: Performed By: #### L 502.0250, L501.9910, L500.4050, L500.4100, L100.0100 ####[facility] [address] [place], [address] Calcium [Mass/Vol] 9.4 mg/dL Normal 7.6-11.0 [facility] Comment on above: Performed By: #### L 502.0250, L501.9910, L500.4050, L500.4100, L100.0100 ####[facility] [address] [place], [address] Chloride [Moles/Vol] 100 mmol/L Normal 98-108 [facility] Comment on above: Performed By: #### L 502.0250, L501.9910, L500.4050, L500.4100, L100.0100 ####[facility] [address] [place], [address] CO2 [Moles/Vol] 26.3 mmol/L Normal 21.0-32.0 [facility] Comment on above: Performed By: #### L 502.0250, L501.9910, L500.4050, L500.4100, L100.0100 ####[facility] [address] [place], [address] Creatinine [Mass/Vol] 0.95 mg/dL Normal 0.70-1.20 [facility] Comment on above: Performed By: #### L 502.0250, L501.9910, L500.4050, L500.4100, L100.0100 ####[facility] [address] [place], [address] GAP 10 Normal 5-15 [facility] Comment on above: Performed By: #### L 502.0250, L501.9910, L500.4050, L500.4100, L100.0100 ####[facility] [address] [place], [address] GFR/1.73 sq M.predicted among non-blacks MDRD (S/P/Bld) [Vol rate/Area] 97 mL/min/{1.73_m2} Normal >60 [facility] Comment on above: Result Comment: mL/m in/1.73m2 CKD-EPI Creatinine Equation (2020) Performed By: #### L 502.0250, L501.9910, L500.4050, L500.4100, L100.0100 ####[facility] [address] [place], [address] Globulin (S) [Mass/Vol] 2.8 g/dL Normal 2.2-4.2 [facility] Comment on above: Performed By: #### L 502.0250, L501.9910, L500.4050, L500.4100, L100.0100 ####[facility] [address] [place], [address] Glucose [Mass/Vol] 95 mg/dL Normal 70-99 [facility] Comment on above: Performed By: #### L 502.0250, L501.9910, L500.4050, L500.4100, L100.0100 ####[facility] [address] [place], [address] Potassium [Moles/Vol] 3.7 mmol/L Normal 3.3-5.1 [facility] Comment on above: Performed By: #### L 502.0250, L501.9910, L500.4050, L500.4100, L100.0100 ####[facility] [address] [place], [address] Sodium [Moles/Vol] 137 mmol/L Normal 133-145 [facility] Comment on above: Performed By: #### L 502.0250, L501.9910, L500.4050, L500.4100, L100.0100 ####[facility] [address] [place], [address] T PROT 7.1 g/dL Normal 5.9-8.4 [facility] Comment on above: Performed By: #### L 502.0250, L501.9910, L500.4050, L500.4100, L100.0100 ####[facility] [address] [place], [address] Urea nitrogen [Mass/Vol] 13 mg/dL Normal 4-19 [facility] Comment on above: Performed By: #### L 502.0250, L501.9910, L500.4050, L500.4100, L100.0100 ####[facility] [address] [place], [address] Creatinine Unsp time (U) [Ma ss/Vol]Ordered By: Nito Canseco on 07-03-2024 Creatinine (U) [Mass/Vol] 225.00 mg/dL 39-259 [facility] Eosinophil percentageOrdered By: Nito Canseco on 07-03-2024 Eosinophils/100 WBC (Bld) 2.4 % 0-5 [facility] Erythrocyte distribution wid th ratioOrdered By: Nito Canseco on 07-03-2024 Erythrocyte distribution width (RBC) [Ratio] 13.2 % 11.6-14.6 [facility] Erythrocyte distribution wid th standard deviationOrdered By: Nito Canseco on 07-03-2024 Erythrocyte distribution width (RBC) [Entitic vol] 44.7 fL High 35.1-43.9 [facility] Erythrocyte distribution width (RBC) [Ratio] 44.7 fl High 35.1-43.9 [facility] GFR/1.73 sq M.predicted enoch g non-blacks MDRD (S/P/Bld) [Vol rate/Area]Ordered By: Nito Canseco on 07-03-2024 Estimated GFR (MDRD) Non-Af Amer 97 >60 [facility] Comment on above: mL/min/1.73m2 CKD-EP I Creatinine Equation (2020) Glomerular filtration rate ( GFR) estimation/1.73 sq m using serum, plasma, or whole bOrdered By: Nito Canseco on 07-03-2024 GFR/1.73 sq M.predicted among non-blacks MDRD (S/P/Bld) [Vol rate/Area] 97 mL/min/{1.73_m2} >60 [facility] Comment on above: mL/min/1.73m2 CKD-EP I Creatinine Equation (2020) Hematocrit Auto (Bld) [Volum e fraction]Ordered By: Nito Canseco on 07-03-2024 Hematocrit (Bld) [Volume fraction] 46.3 % 40-54 [facility] Hemoglobin A1con 07-03-2024 HbA1c (Bld) [Mass fraction] 5.6 % Low <=5.6 [facility] Comment on above: Order Comment: ADD O N Performed By: #### L 501.9985 #### [facility] [address] [place] [address]. [place], [place], [id number] Hemoglobin A1c percentageOrd ered By: Nito Canseco on 07-03-2024 HbA1c (Bld) [Mass fraction] 5.6 % Low >5.7 [facility] Hemoglobin measurementOrdere d By: Nito Canseco on 07-03-2024 Hemoglobin (Bld) [Mass/Vol] 15.7 g/dL 13.0-16.5 [facility] Immature granulocytes/100 WB C Auto (Bld)Ordered By: Nito Canseco on 07-03-2024 Immature granulocytes/100 WBC (Bld) 0.400 % 0.0-0.9 [facility] Comment on above: IG% - Immature Granu locytes (promyelocytes, myelocytes and metamyelocytes) > 1% indicates that a LEFT SHIFT is Present. LDL calc ser/plasOrdered By: Nito Canseco on 07-03-2024 Cholesterol in LDL [Mass/Vol] 114 mg/dL [facility] Comment on above: Hexmrwmeve=514-542 m g/dL & Higher Awfj=569 mg/dL or greater LDL Cholesterol, Calculated 114 mg/dL [facility] Comment on above: Fwyiepogny=373-988 m g/dL & Higher Lalh=103 mg/dL or greater Laboratory - Chemistry and C hemistry - challengeOrdered By: Nito Canseco on 07-03-2024 AST [Catalytic activity/Vol] 29 U/L <38 [facility] Lipid Profileon 07-03-2024 CHOL:HDL 5.07 Normal [facility] Comment on above: Performed By: #### L 502.0250, L501.9910, L500.4050, L500.4100, L100.0100 ####[facility] [address] [place], [place], [address] Cholesterol [Mass/Vol] 193 mg/dL Normal <=200 [facility] Comment on above: Result Comment: Chol esterol level, Desirable <200 mg/dL Borderline high cholesterol 200-239 mg/dL High cholesterol >=240 mg/dL Recommendations of the NCEP Adult Treatment Panel for the following risk-cutoff thresholds for the [place] population. Performed By: #### L 502.0250, L501.9910, L500.4050, L500.4100, L100.0100 ####[facility] [address] [place], [place], [id number] Cholesterol in HDL [Mass/Vol] 38 mg/dL Low [facility] Comment on above: Result Comment: Radha onal Cholesterol Education Program (NCEP) guidelines: <40 mg/dL: Low HDL-cholesterol (major risk factor for CHD) >= 60 mg/dL: High HDL-cholesterol (negative risk factor for CHD) HDL-cholesterol is affected by a number of factors, e.g. smoking, exercise, hormones, sex and age. Performed By: #### L 502.0250, L501.9910, L500.4050, L500.4100, L100.0100 ####[facility] [address] [place], [address] Cholesterol in LDL [Mass/Vol] 114 mg/dL Normal [facility] Comment on above: Result Comment: Bord qavxyk=012-743 mg/dL Higher Oudx=842 mg/dL or greater Performed By: #### L 502.0250, L501.9910, L500.4050, L500.4100, L100.0100 ####[facility] [address] [place], [address] Cholesterol in VLDL [Mass/Vol] 41 mg/dL High 5-40 [facility] Comment on above: Performed By: #### L 502.0250, L501.9910, L500.4050, L500.4100, L100.0100 ####[facility] [address] [place], [address] Triglyceride [Mass/Vol] 204 mg/dL High [facility] Comment on above: Result Comment: The drugs N-Acetylcysteine and Metamizole may falsely depress this assay. Normal range: <150 mg/dL Borderline High: 150-199 mg/dL High: 200-499 mg/dL Very High: >500 mg/dL Performed By: #### L 502.0250, L501.9910, L500.4050, L500.4100, L100.0100 ####[facility] [address] [place], [address] Lymphocytes Auto (Unsp spec) [#/Vol]Ordered By: Nito Canseco on 07-03-2024 Lymphocytes (Bld) [#/Vol] 1.40 10*3/uL 0.83-4.51 [facility] Lymphocytes/100 WBC Auto (Un sp spec)Ordered By: Nito Canseco on 07-03-2024 Lymphocytes/100 WBC (Bld) 25.7 % 19-41 [facility] MCV (mean corpuscular volume ) determinationOrdered By: Nito Canseco on 07-03-2024 MCV (RBC) [Entitic vol] 92.2 fL 80-94 [facility] [place] [facility] Mean corpuscular hemoglobin (MCH) determinationOrdered By: Nito Rodriguezkendalldeb on 07-03-2024 MCH (RBC) [Entitic mass] 31.3 pg 27.0-32.0 [facility] Mean corpuscular hemoglobin concentration (MCHC) determinationOrdered By: Nito Canseco on 07-03-2024 MCHC (RBC) [Mass/Vol] 33.9 g/dL 32-36 [facility] Mean platelet volume determi nationOrdered By: Nito Rodriguezkendalldeb on 07-03-2024 Platelet mean volume (Bld) [Entitic vol] 9.9 fL 6.2-12.0 [facility] Microalb:Creat Ratio,Random URon 07-03-2024 Creatinine [Mass/Vol] 225.00 mg/dL Normal 39-259 [facility] Comment on above: Performed By: #### L 502.0250, L501.9910, L500.4050, L500.4100, L100.0100 ####[facility] [address] [place], [place], [address] MALB:CREAT UNABLE TO CALCULATE Normal [facility] Comment on above: Performed By: #### L 502.0250, L501.9910, L500.4050, L500.4100, L100.0100 ####[facility] [address] [place], [place], [id number] MICROALBUMIN,UR < 12.0 Normal NO RANGE EST. [facility] Comment on above: Performed By: #### L 502.0250, L501.9910, L500.4050, L500.4100, L100.0100 ####[facility] [address] [place], [place], [address] Microalbumin/creat ratio urO rdered By: Nito Canseco on 07-03-2024 Urine Microalbumin/Creatinine Ratio UNABLE TO CALCULATE mg/g CRE [facility] Urine microalbumin/creatinine ratio measurement UNABLE TO CALCULATE mg/g CRE [facility] Monocyte percentageOrdered B y: Nito Canseco on 07-03-2024 Monocytes/100 WBC (Bld) 12.5 % High 0-10 [facility] Neutrophil percentageOrdered By: Erickajulietteradha Michaeleleazar on 07-03-2024 Neutrophils/100 WBC (Bld) 58.1 % 47-70 [facility] Nucleated red blood cell per centageOrdered By: Erickajuliettekrystynaemmanuel Rodriguezeleazar on 07-03-2024 Nucleated RBC/100 WBC (Bld) [Ratio] 0 % 0-5 [facility] PSA, total screeningOrdered By: Nito Canseco on 07-03-2024 Prostate Specific Antigen Screen 0.40 ng/mL 0.02-4.00 [facility] Comment on above: This test was perfor med using the [employer] tPSA method. Measured values of a patient sample can vary depending on the testing procedure used. PSA values determined on patient samples by different testing procedures cannot be used interchangeably. If there is a change in PSA assays while monitoring therapy, sequential testing should be performed to confirm baseline values. PSA,Total - Annual Screenon 07-03-2024 PSA,TOT SCREEN 0.40 ng/mL Normal 0.02-4.00 [facility] Comment on above: Result Comment: This test was performed using the [employer] tPSA method. Measured values of a patient??sample can vary depending on the testing procedure used. PSA values determined on patient samples by different testing procedures cannot be used interchangeably. If there is a change in PSA assays while monitoring therapy, sequential testing should be performed to confirm baseline values. Performed By: #### L 502.0250, L501.9910, L500.4050, L500.4100, L100.0100 ####[facility] [address] [place], [address] Platelet countOrdered By: Ericka Canseco on 07-03-2024 Platelets (Bld) [#/Vol] 286 10*3/uL 150-450 [facility] Potassium (Unsp spec) [Mass/ Vol]Ordered By: Nito Canseco on 07-03-2024 Potassium [Moles/Vol] 3.7 mmol/L 3.3-5.1 [facility] Potassium measurement (mass/ volume)Ordered By: Nito Canseco on 07-03-2024 Potassium (Unsp spec) [Mass/Vol] 3.7 mmol/L 3.3-5.1 [facility] RBC Auto (Bld) [#/Vol]Ordere d By: Nito Canseco on 07-03-2024 RBC (Bld) [#/Vol] 5.02 10*6/uL 4.6-6.2 [facility] Random urine creatinine quentin urement (mass/volume)Ordered By: Nito Canseco on 07-03-2024 Creatinine Unsp time (U) [Mass/Vol] 225.00 mg/dL 39-259 [facility] Screening total cholesterol/ high density lipoprotein (HDL) cholesterol ratioOrdered By: Nito Canseco on 07-03-2024 Cholesterol.total/Choles terol in HDL [Mass ratio] 5.07 {ratio} [facility] Serum creatinine measurement (mass/volume)Ordered By: Nito Canseco on 07-03-2024 Creatinine [Mass/Vol] 0.95 mg/dL 0.70-1.20 [facility] Serum globulin measurementOr dered By: Nito Canseco on 07-03-2024 Globulin (S) [Mass/Vol] 2.8 g/dL 2.2-4.2 [facility] Serum glucose measurement (m ass/volume)Ordered By: Nito Canseco on 07-03-2024 Glucose [Mass/Vol] 95 mg/dL 70-99 [facility] Serum or plasma alanine zimmerman otransferase (ALT) measurementOrdered By: Nito Canseco on 07-03-2024 ALT [Catalytic activity/Vol] 40 U/L <47 [facility] Serum or plasma albumin quentin urement (mass/volume)Ordered By: Nito Canseco on 07-03-2024 Albumin [Mass/Vol] 4.4 g/dL 3.5-5.0 [facility] Serum or plasma albumin/glob ulin mass ratioOrdered By: Nito Canseco on 07-03-2024 Albumin/Globulin [Mass ratio] 1.6 {ratio} 0.9-2.4 [facility] Serum or plasma alkaline josé sphatase measurementOrdered By: Nito Canseco on 07-03-2024 ALP [Catalytic activity/Vol] 65 U/L 40-129 [facility] Serum or plasma calcium quentin urement (mass/volume)Ordered By: Nito Canseco on 07-03-2024 Calcium [Mass/Vol] 9.4 mg/dL 7.6-11.0 [facility] Serum or plasma cholesterol in HDL measurement (mass/volume)Ordered By: Nito Canseco on 07-03-2024 Cholesterol in HDL [Mass/Vol] 38 mg/dL Low >40 [facility] Comment on above: National Cholesterol Education Program (NCEP) guidelines:<40 mg/dL: Low HDL-cholesterol (major risk factor for CHD)>= 60 mg/dL: High HDL-cholesterol (negative risk factor for CHD)HDL-cholesterol is affected by a number of factors, e.g. smoking, exercise, hormones, sex and age. Serum or plasma cholesterol measurement (mass/volume)Ordered By: Nito Canseco on 07-03-2024 Cholesterol [Mass/Vol] 193 mg/dL <201 [facility] Comment on above: Cholesterol level, D esirable <200 mg/dLBorderline high cholesterol 200-239 mg/dLHigh cholesterol >=240 mg/dLRecommendations of the NCEP Adult Treatment Panel for the following risk-cutoff thresholds for the [place] population. Serum or plasma urea nitroge n measurement (mass/volume)Ordered By: Nito Canseco on 07-03-2024 Urea nitrogen [Mass/Vol] 13 mg/dL 4-19 [facility] Sodium levelOrdered By: Dilcia Canseco on 07-03-2024 Sodium [Moles/Vol] 137 mmol/L 133-145 [facility] Total proteinOrdered By: Jonathan Canseco on 07-03-2024 Protein [Mass/Vol] 7.1 g/dL 5.9-8.4 [facility] Triglycerides measurementOrd ered By: Nito Canseco on 07-03-2024 Triglyceride [Mass/Vol] 204 mg/dL High <199 [facility] Comment on above: The drugs N-Acetylcy steine and Metamizole may falsely depress this assay. Normal range: <150 mg/dLBorderline High: 150-199 mg/dLHigh: 200-499 mg/dLVery High: >500 mg/dL Urine albumin measurement [facility] detection limit of 20 mg/L or less (mass/volume)Ordered By: Nito Canseco on 07-03-2024 Albumin DL <= 20 mg/L (U) [Mass/Vol] < 12.0 mg/L NO RANGE EST. [facility] White blood cell (WBC) count Ordered By: Nito Canseco on 07-03-2024 WBC (Bld) [#/Vol] 5.4 10*3/uL 4.4-11.0 [facility] Internal Medicine Office Vis itocallie 04-16-2024 Internal Medicine Office Visit [facility] [address] [place] [address] [place] [address] OFFICE VISIT Date of Service: 04/16/24 MR#: [id number] Acct: [id number] Name: WILL NICHOLS Rep #: [id number] : 1970 Provider: Dr. Nito valenzuela MD Age/Sex: 54/M Location: [facility] Status: Signed with Addenda ADDENDUM by Dr. 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 No chills, fever or otherwise feeling of unwell. Supportive measures were recommended including Flonase. Was also advised to call with update. While documented in initial intake, this was not documented in assessment though addressed. Patient called with ongoing symptoms on 04/20/2024. Still no fever or chills. Has found Flonase helpful but not completely. Still no clear indication for antibiotics at this time however, he is unable to go for his upcoming cruise. Will provide documentation This note was generated with [employer] software. It may contain incorrect words, spelling, and punctuation that were not noted in checking the note before signing. Orders: Orders POC A1C 04/16/24 E11.9 - Type 2 diabetes mellitus without complications CBC W/Diff, Automated 3 Months E11.9 - Type 2 diabetes mellitus without complications Comprehensive Metabolic Profil 3 Months E11.9 - Type 2 diabetes mellitus without complications Lipid Profile 3 Months E11.9 - Type 2 diabetes mellitus without complications Microalb:Creat Ratio,Random UR 3 Months E11.9 - Type 2 diabetes mellitus without complications PSA,Total - Annual Screen 04/16/24 Z12.5 - Encounter for screening for malignant neoplasm of prostate 04/20/24 1433 Date Nito Canseco MD cc: * Signed Intake Vital Signs 01/23/24 17:44 04/16/24 17:14 Height 5 ft 11 in 5 ft 11 in Weight: 251 lb BMI 34.9 BP 118/80 Blood Pressure Location Lt brachial Position Sitting Respiration 16 Pulse 92 Pulse Source Monitor Temp 97.8 F Temp Source Temporal Pulse Oximetry (%) 98 Oxygen Delivery Method room air Intake Visit Reasons: 3 M FU Chief Complaint: Follow-up chronic conditions Publicity Manager Required: No Is patient in pain?: No Allergies No Known Allergies Allergy (Verified 04/16/24 17:05) Medications ???Medication ???Instructions ???Recorded ???Confirmed ???Type multivitamin 1 tab PO DAILY 07/11/22 04/16/24 History duloxetine 30 mg capsule,delayed 90 mg (3 x 30 mg) PO QDAY 3 months 09/30/23 04/16/24 Rx release #270 caps trazodone 50 mg tablet 100 mg (2 x 50 mg) PO QHS PRN 09/30/23 04/16/24 Rx insomnia 3 months #180 tabs amlodipine 5 mg tablet 5 mg PO DAILY #90 tabs 01/23/24 04/16/24 Rx lisinopril 20 1 tab PO BID #90 tabs 02/20/24 04/16/24 Rx mg-hydrochlorothiazi de 12.5 mg tablet tirzepatide 5 mg/0.5 mL 5 mg (0.5 mL) subcut QWEEK 3 02/24/24 04/16/24 Rx subcutaneous pen injector months #6.5 mL Nurse's Note: States he has had a cold for a couple of weeks he is going on a couple of weeks w/ sx's . Is requesting atb's to clear it as he is going on a cruise. States he still has headache and sinus pressure. Denies coughing, sob and chest congestion. Has been using corisedon. [facility] Medical History Flu vaccine need Type 2 diabetes mellitus Impacted cerumen of both ears Borderline type 2 diabetes mellitus Insomnia PTSD (post-traumatic stress disorder) Anxiety and depression Preventative health care MOISES treated with BiPAP Obstructive sleep apnea Depression Anxiety Seasonal allergies Diabetes Arthritis Hypertension Surgical History History of knee replacement Family History Mother Anemia Arthritis Bleeding disorder Hypertension High cholesterol Factor V deficiency DVT (deep venous thrombosis) Father Arthritis Hypertension Diabetes CVA (cerebral vascular accident) Sister Bleeding disorder Factor V deficiency Grandmoth (more content not included)... Normal [facility] - Hematology and Cell countson 04-16-2024 HbA1c (Bld) [Mass fraction] 5.3 % 4.2-6.3 [facility] Absolute lymphocyte countOrd ered By: Nito Canseco on 05-02-2023 Lymphocytes Auto (Unsp spec) [#/Vol] 2.07 10*3/uL 0.83-4.51 [facility] Basophil percentageOrdered B y: Nito Canseco on 05-02-2023 Basophils/100 WBC (Bld) 1.2 % 0-1 [facility] Bilirubin [Mass/Vol] 0.60 mg/dL 0.20-1.00 [facility] Comment on above: For patients on eltr ombopag therapy, use of Dimension [place] TBIL is not recommended. Chloride [Moles/Vol] 103 mmol/L 98-107 [facility] Cholesterol [Mass/Vol] 192 mg/dL <200 [facility] Comment on above: <200 mg/dL Desirable 200-240 mg/dL Borderline >240 mg/dL High Risk Eosinophils/100 WBC (Bld) 1.7 % 0-5 [facility] Glucose [Mass/Vol] 138 mg/dL 74-106 [facility] Comment on above: Fasting Glucose resu lt greater than or equal to 126 mg/dL suggests DIABETES MELLITUS per A.D.A. criteria. Neutrophils (Bld) [#/Vol] 3.2 10*3/uL 2.0-7.7 [facility] Neutrophils/100 WBC (Bld) 53.4 % 47-70 [facility] Potassium [Moles/Vol] 4.4 mmol/L 3.5-5.1 [facility] Protein [Mass/Vol] 7.4 g/dL 6.4-8.2 [facility] Sodium [Moles/Vol] 136 mmol/L 136-145 [facility] Triglyceride [Mass/Vol] 161 mg/dL <199 [facility] Comment on above: The drugs N-Acetylcy steine and Metamizole may falsely depress this assay.Serum Triglycerides Reference Interval Normal <150 mg/dL Borderline high 150 - 199 mg/dL High 200 - 499 mg/dL Very High > or = 500 mg/dL WBC (Bld) [#/Vol] 6.0 10*3/uL 4.4-11.0 [facility] Blood erythrocytes count (nu mber/volume)Ordered By: Nito Canseco on 05-02-2023 RBC (Bld) [#/Vol] 5.17 10*6/uL 4.6-6.2 [facility] Blood hemoglobin measurement (mass/volume)Ordered By: Nito Canseco on 05-02-2023 Hemoglobin (Bld) [Mass/Vol] 16.1 g/dL 13.0-16.5 [facility] Blood lymphocytes/100 leukoc ytesOrdered By: key Canseco on 05-02-2023 Lymphocytes/100 WBC (Bld) 34.6 % 19-41 [facility] Blood monocytes/100 leukocyt esOrdered By: key Canseco on 05-02-2023 Monocytes/100 WBC (Bld) 8.3 % 0-10 [facility] Blood platelet mean volumeOr dered By: key Canseco on 05-02-2023 Platelet mean volume (Bld) [Entitic vol] 9.7 fL 6.2-12.0 [facility] Determination of erythrocyte mean corpuscular volume (MCV)Ordered By: Nito Canseco on 05-02-2023 MCV (RBC) [Entitic vol] 93.0 fL 80-94 [facility] Hematocrit Auto (Bld) [Volum e fraction]Ordered By: [facility] Can[facility] on 05-02-2023 Hematocrit (Bld) [Volume fraction] 48.1 % 40-54 [facility] - Chemistry and C hemistry - challengeOrdered By: julietteoakhurstemmanuel Canseco on 05-02-2023 ALP [Catalytic activity/Vol] 58 U/L 45-117 [facility] ALT [Catalytic activity/Vol] 63 U/L 16-61 [facility] CO2 [Moles/Vol] 28.0 mmol/L 21.0-32.0 [facility] Globulin (S) [Mass/Vol] 3.6 g/dL 2.2-4.2 [facility] Urea nitrogen/Creatinine [Mass ratio] 15.8 mg/mg 10-20 [facility] - Hematology and Cell countsOrdered By: julietteoakhurstemmanuel Canseco on 05-02-2023 Erythrocyte distribution width (RBC) [Entitic vol] 43.9 fL 35.1-43.9 [facility] Erythrocyte distribution width (RBC) [Ratio] 12.8 % 11.6-14.6 [facility] Immature granulocytes/100 WBC (Bld) 0.800 % 0.0-0.9 [facility] Comment on above: IG% - Immature Granu locytes (promyelocytes, myelocytes and metamyelocytes) > 1% indicates that a LEFT SHIFT is Present. MCH (RBC) [Entitic mass] 31.1 pg 27.0-32.0 [facility] Nucleated RBC/100 WBC (Bld) [Ratio] 0 % 0-5 [facility] MCHC Auto (RBC) [Mass/Vol]Or dered By: Nito Canseco on 05-02-2023 MCHC (RBC) [Mass/Vol] 33.5 g/dL 32-36 [facility] No Panel InformationOrdered By: Nito Canseco on 05-02-2023 Estimated GFR (MDRD) Amer 100 mL/min >60 [facility] Comment on above: GFR Calc Estimated GFR (MDRD) Non-Af Amer 83 mL/min >60 [facility] Comment on above: Non- GFR Calc Platelets bldOrdered By: Jonathan Canseco on 05-02-2023 Platelets (Bld) [#/Vol] 245 10*3/uL 150-450 [facility] Serum or plasma albumin quentin urement (mass/volume)Ordered By: Nito Canseco on 05-02-2023 Albumin [Mass/Vol] 3.8 g/dL 3.2-5.0 [facility] Serum or plasma albumin/glob ulin mass ratioOrdered By: Nito Canseco on 05-02-2023 Albumin/Globulin [Mass ratio] 1.1 {ratio} 0.9-2.4 [facility] Serum or plasma calcium quentin urement (mass/volume)Ordered By: Nito Canseco on 05-02-2023 Calcium [Mass/Vol] 8.8 mg/dL 8.5-10.1 [facility] Serum or plasma cholesterol in HDL measurement (mass/volume)Ordered By: Nito Canseco on 05-02-2023 Cholesterol in HDL [Mass/Vol] 37 mg/dL >40 [facility] Comment on above: The drugs N-Acetylcy steine and Metamizole may falsely depress this assay. Reference Range HDL <40 mg/dL Low HDL Cholesterol HDL >or= 60 mg/dL High HDL Cholesterol Serum or plasma cholesterol in VLDL measurement (mass/volume)Ordered By: Nito Canseco on 05-02-2023 Cholesterol in VLDL [Mass/Vol] 32 mg/dL 5-40 [facility] Serum or plasma creatinine m easurement (mass/volume)Ordered By: Nito Canseco on 05-02-2023 Creatinine [Mass/Vol] 1.01 mg/dL 0.70-1.30 [facility] Comment on above: The validity of the calculated GFR & GFRAA in patients over 70 years has not been determined. Clinical correlation is essential. Serum or plasma low density lipoprotein (LDL) cholesterol measurement (mass/volume)Ordered By: Nito Canseco on 05-02-2023 Cholesterol in LDL [Mass/Vol] 123 mg/dL 0-130 [facility] Serum or plasma urea nitroge n measurement (mass/volume)Ordered By: Nito Canseco on 05-02-2023 Urea nitrogen [Mass/Vol] 16 mg/dL 7-18 [facility] Thin prep Papanicolaou smear with manual screeningOrdered By: Nito Canseco on 05-02-2023 Thin prep Papanicolaou smear with manual screening 36 U/L 15-37 [facility] Thin prep Papanicolaou smear with manual screening 5 5-15 [facility] Basophil percentageOrdered B y: Nito Canseco on 01-04-2023 Chloride [Moles/Vol] 103 mmol/L 98-107 [facility] Glucose [Mass/Vol] 123 mg/dL 74-106 [facility] Comment on above: Fasting Glucose resu lt from 100 to 125 mg/dL suggests IMPAIRED HOMEOSTASIS per A.D.A. criteria. Potassium [Moles/Vol] 3.9 mmol/L 3.5-5.1 [facility] Sodium [Moles/Vol] 134 mmol/L 136-145 [facility] Laboratory - Chemistry and C hemistry - challengeOrdered By: Nito Canseco on 01-04-2023 CO2 [Moles/Vol] 27.0 mmol/L 21.0-32.0 [facility] Urea nitrogen/Creatinine [Mass ratio] 14.9 mg/mg 10-20 [facility] No Panel InformationOrdered By: Nito Canseco on 01-04-2023 Estimated GFR (MDRD) Amer 100 mL/min >60 [facility] Comment on above: GFR Calc Estimated GFR (MDRD) Non-Af Amer 83 mL/min >60 [facility] Comment on above: Non- GFR Calc Serum or plasma calcium quentin urement (mass/volume)Ordered By: Nito Canseco on 01-04-2023 Calcium [Mass/Vol] 9.2 mg/dL 8.5-10.1 [facility] Serum or plasma creatinine m easurement (mass/volume)Ordered By: Nito Canseco on 01-04-2023 Creatinine [Mass/Vol] 1.01 mg/dL 0.70-1.30 [facility] Comment on above: The validity of the calculated GFR & GFRAA in patients over 70 years has not been determined. Clinical correlation is essential. Serum or plasma urea nitroge n measurement (mass/volume)Ordered By: Nito Canseco on 01-04-2023 Urea nitrogen [Mass/Vol] 15 mg/dL 7-18 [facility] Thin prep Papanicolaou smear with manual screeningOrdered By: Nito Canseco on 01-04-2023 Thin prep Papanicolaou smear with manual screening 4 5-15 [facility] Whole blood hemoglobin A1c/t otal hemoglobin ratio (mass fraction)Ordered By: Nito Canseco on 01-04-2023 HbA1c (Bld) [Mass fraction] 6.0 % 3.8-5.6 [facility] Comment on above: Normal < 5.7 % Predi abetic 5.7 - 6.4 % Diabetic >or= 6.5 % Please note range changes. Basophil percentageOrdered B y: Nito Canseco on 09-19-2022 Chloride [Moles/Vol] 105 mmol/L 98-107 [facility] Glucose [Mass/Vol] 106 mg/dL 74-106 [facility] Comment on above: Fasting Glucose resu lt from 100 to 125 mg/dL suggests IMPAIRED HOMEOSTASIS per A.D.A. criteria. Potassium [Moles/Vol] 4.4 mmol/L 3.5-5.1 [facility] Comment on above: Slight Hemolysis, Re sult may be falsely increased. Sodium [Moles/Vol] 137 mmol/L 136-145 [facility] Laboratory - Chemistry and C hemistry - challengeOrdered By: Nito Canseco on 09-19-2022 CO2 [Moles/Vol] 24.0 mmol/L 21.0-32.0 [facility] Urea nitrogen/Creatinine [Mass ratio] 13.1 mg/mg 10- [facility] No Panel InformationOrdered By: Nito Canseco on 09-19-2022 Estimated GFR (MDRD) Amer 112 mL/min >60 [facility] Comment on above: GFR Calc Estimated GFR (MDRD) Non-Af Amer 93 mL/min >60 [facility] Comment on above: Non- GFR Calc Prostate Specific Antigen Screen 0.30 ng/mL 0.00-4.00 [facility] Comment on above: This test was perfor med using the TPSA assay method for the[employer] chemistry system. Values obtained with differentassay methods cannot be used interchangably.When changing PSA assays in the course of monitoring apatient, additional sequential testing should be carriedout to confirm baseline values. Serum or plasma calcium quentin urement (mass/volume)Ordered By: Nito Canseco on 09-19-2022 Calcium [Mass/Vol] 9.2 mg/dL 8.5-10.1 [facility] Serum or plasma creatinine m easurement (mass/volume)Ordered By: Nito Canseco on 09-19-2022 Creatinine [Mass/Vol] 0.92 mg/dL 0.70-1.30 [facility] Comment on above: The validity of the calculated GFR & GFRAA in patients over 70 years has not been determined. Clinical correlation is essential. Serum or plasma urea nitroge n measurement (mass/volume)Ordered By: Nito Canseco on 09-19-2022 Urea nitrogen [Mass/Vol] 12 mg/dL - [facility] Thin prep Papanicolaou smear with manual screeningOrdered By: Cliveemmanuel Michaeleleazar on 09-19-2022 Thin prep Papanicolaou smear with manual screening 8 5-15 [facility] Absolute lymphocyte countOrd ered By: Dr. Schafer on 05-28-2022 Lymphocytes Auto (Unsp spec) [#/Vol] 2.09 10*3/uL 0.83-4.51 [facility] Basophil percentageOrdered B y: Dr. Schafer on 05-28-2022 Basophils/100 WBC (Bld) 0.9 % 0-1 [facility] Bilirubin [Mass/Vol] 0.40 mg/dL 0.20-1.00 [facility] Comment on above: For patients on eltr ombopag therapy, use of Dimension [place] TBIL is not recommended. Chloride [Moles/Vol] 101 mmol/L 98-107 [facility] Cholesterol [Mass/Vol] 180 mg/dL <200 [facility] Comment on above: <200 mg/dL Desirable 200-240 mg/dL Borderline >240 mg/dL High Risk Eosinophils/100 WBC (Bld) 1.7 % 0-5 [facility] Glucose [Mass/Vol] 137 mg/dL 74-106 [facility] Comment on above: Fasting Glucose resu lt greater than or equal to 126 mg/dL suggests DIABETES MELLITUS per A.D.A. criteria. Neutrophils (Bld) [#/Vol] 3.5 10*3/uL 2.0-7.7 [facility] Neutrophils/100 WBC (Bld) 54.2 % 47-70 [facility] Potassium [Moles/Vol] 4.3 mmol/L 3.5-5.1 [facility] Protein [Mass/Vol] 7.3 g/dL 6.4-8.2 [facility] Sodium [Moles/Vol] 137 mmol/L 136-145 [facility] Triglyceride [Mass/Vol] 254 mg/dL <199 [facility] Comment on above: The drugs N-Acetylcy steine and Metamizole may falsely depress this assay.Serum Triglycerides Reference Interval Normal <150 mg/dL Borderline high 150 - 199 mg/dL High 200 - 499 mg/dL Very High > or = 500 mg/dL WBC (Bld) [#/Vol] 6.5 10*3/uL 4.4-11.0 [facility] Blood erythrocytes count (nu mber/volume)Ordered By: Dr. Schfaer on 05-28-2022 RBC (Bld) [#/Vol] 5.11 10*6/uL 4.6-6.2 [facility] Blood hemoglobin measurement (mass/volume)Ordered By: Dr. Schafer on 05-28-2022 Hemoglobin (Bld) [Mass/Vol] 16.2 g/dL 13.0-16.5 [facility] Blood lymphocytes/100 leukoc ytesOrdered By: Dr. Schafer on 05-28-2022 Lymphocytes/100 WBC (Bld) 32.2 % 19-41 [facility] Blood monocytes/100 leukocyt esOrdered By: Dr. Schafer on 05-28-2022 Monocytes/100 WBC (Bld) 10.5 % 0-10 [facility] Blood platelet mean volumeOr dered By: Dr. Schafer on 05-28-2022 Platelet mean volume (Bld) [Entitic vol] 9.7 fL 6.2-12.0 [facility] Determination of erythrocyte mean corpuscular volume (MCV)Ordered By: Dr. Schafer on 05-28-2022 MCV (RBC) [Entitic vol] 91.4 fL 80-94 [facility] Hematocrit Auto (Bld) [Volum e fraction]Ordered By: Dr. Schafer on 05-28-2022 Hematocrit (Bld) [Volume fraction] 46.7 % 40-54 [facility] Laboratory - Chemistry and C hemistry - challengeOrdered By: Dr. Schafer on 05-28-2022 ALP [Catalytic activity/Vol] 62 U/L 45-117 [facility] ALT [Catalytic activity/Vol] 58 U/L 16-61 [facility] CO2 [Moles/Vol] 27.0 mmol/L 21.0-32.0 [facility] Globulin (S) [Mass/Vol] 3.5 g/dL 2.2-4.2 [facility] Urea nitrogen/Creatinine [Mass ratio] 16.7 mg/mg 10-20 [facility] Laboratory - Hematology and Cell countsOrdered By: Dr. Schafer on 05-28-2022 Erythrocyte distribution width (RBC) [Entitic vol] 42.0 fL 35.1-43.9 [facility] Erythrocyte distribution width (RBC) [Ratio] 12.4 % 11.6-14.6 [facility] Immature granulocytes/100 WBC (Bld) 0.500 % 0.0-0.9 [facility] Comment on above: IG% - Immature Granu locytes (promyelocytes, myelocytes and metamyelocytes) > 1% indicates that a LEFT SHIFT is Present. MCH (RBC) [Entitic mass] 31.7 pg 27.0-32.0 [facility] Nucleated RBC/100 WBC (Bld) [Ratio] 0 % 0-5 [facility] MCHC Auto (RBC) [Mass/Vol]Or dered By: Dr. Schafer on 05-28-2022 MCHC (RBC) [Mass/Vol] 34.7 g/dL 32-36 [facility] No Panel InformationOrdered By: Dr. Schafer on 05-28-2022 Estimated GFR (MDRD) Amer 107 mL/min >60 [facility] Comment on above: GFR Calc Estimated GFR (MDRD) Non-Af Amer 88 mL/min >60 [facility] Comment on above: Non- GFR Calc Thyroid Stimulating Hormone (TSH) 0.83 uIU/mL 0.358-3.74 [facility] Platelets bldOrdered By: Dr. Schafer on 05-28-2022 Platelets (Bld) [#/Vol] 308 10*3/uL 150-450 [facility] Serum or plasma albumin quentin urement (mass/volume)Ordered By: Dr. Schafer on 05-28-2022 Albumin [Mass/Vol] 3.8 g/dL 3.2-5.0 [facility] Serum or plasma albumin/glob ulin mass ratioOrdered By: Dr. Schafer on 05-28-2022 Albumin/Globulin [Mass ratio] 1.1 {ratio} 0.9-2.4 [facility] Serum or plasma calcium quentin urement (mass/volume)Ordered By: Dr. Schafer on 05-28-2022 Calcium [Mass/Vol] 8.6 mg/dL 8.5-10.1 [facility] Serum or plasma cholesterol in HDL measurement (mass/volume)Ordered By: Dr. Schafer on 05-28-2022 Cholesterol in HDL [Mass/Vol] 31 mg/dL >40 [facility] Comment on above: The drugs N-Acetylcy steine and Metamizole may falsely depress this assay. Reference Range HDL <40 mg/dL Low HDL Cholesterol HDL >or= 60 mg/dL High HDL Cholesterol Serum or plasma cholesterol in VLDL measurement (mass/volume)Ordered By: Dr. Schafer on 05-28-2022 Cholesterol in VLDL [Mass/Vol] 51 mg/dL 5-40 [facility] Serum or plasma creatinine m easurement (mass/volume)Ordered By: Dr. Schafer on 05-28-2022 Creatinine [Mass/Vol] 0.96 mg/dL 0.70-1.30 [facility] Comment on above: The validity of the calculated GFR & GFRAA in patients over 70 years has not been determined. Clinical correlation is essential. Serum or plasma low density lipoprotein (LDL) cholesterol measurement (mass/volume)Ordered By: Dr. Schafer on 05-28-2022 Cholesterol in LDL [Mass/Vol] 98 mg/dL 0-130 [facility] Serum or plasma urea nitroge n measurement (mass/volume)Ordered By: Dr. Schafer on 05-28-2022 Urea nitrogen [Mass/Vol] 16 mg/dL 7-18 [facility] Thin prep Papanicolaou smear with manual screeningOrdered By: Dr. Schafer on 05-28-2022 Thin prep Papanicolaou smear with manual screening 27 U/L 15-37 [facility] Thin prep Papanicolaou smear with manual screening 9 5-15 [facility] Whole blood hemoglobin A1c/t otal hemoglobin ratio (mass fraction)Ordered By: Dr. Schafer on 05-28-2022 HbA1c (Bld) [Mass fraction] 5.9 % 3.8-5.6 [facility] Comment on above: Normal < 5.7 % Predi abetic 5.7 - 6.4 % Diabetic >or= 6.5 % Please note range changes. Absolute lymphocyte countOrd ered By: Dr. Ramírez on 02-23-2022 Lymphocytes Auto (Unsp spec) [#/Vol] 1.92 10*3/uL 0.83-4.51 [facility] Basophil percentageOrdered B y: Dr. Ramírez on 02-23-2022 Basophils/100 WBC (Bld) 1.1 % 0-1 [facility] Bilirubin [Mass/Vol] 0.60 mg/dL 0.20-1.00 [facility] Comment on above: For patients on eltr ombopag therapy, use of Dimension [place] TBIL is not recommended. Chloride [Moles/Vol] 102 mmol/L 98-107 [facility] Eosinophils/100 WBC (Bld) 1.4 % 0-5 [facility] Glucose [Mass/Vol] 126 mg/dL 74-106 [facility] Comment on above: Fasting Glucose resu lt greater than or equal to 126 mg/dL suggests DIABETES MELLITUS per A.D.A. criteria. Neutrophils (Bld) [#/Vol] 3.0 10*3/uL 2.0-7.7 [facility] Neutrophils/100 WBC (Bld) 52.1 % 47-70 [facility] Potassium [Moles/Vol] 4.0 mmol/L 3.5-5.1 [facility] Protein [Mass/Vol] 7.5 g/dL 6.4-8.2 [facility] Sodium [Moles/Vol] 135 mmol/L 136-145 [facility] WBC (Bld) [#/Vol] 5.7 10*3/uL 4.4-11.0 [facility] Blood erythrocytes count (nu mber/volume)Ordered By: Dr. Ramírez on 02-23-2022 RBC (Bld) [#/Vol] 5.09 10*6/uL 4.6-6.2 [facility] Blood hemoglobin measurement (mass/volume)Ordered By: Dr. Ramírez on 02-23-2022 Hemoglobin (Bld) [Mass/Vol] 16.2 g/dL 13.0-16.5 [facility] Blood lymphocytes/100 leukoc ytesOrdered By: Dr. Ramírez on 02-23-2022 Lymphocytes/100 WBC (Bld) 33.9 % 19-41 [facility] Blood monocytes/100 leukocyt esOrdered By: Dr. Ramírez on 02-23-2022 Monocytes/100 WBC (Bld) 11.1 % 0-10 [facility] Blood platelet mean volumeOr dered By: Dr. Ramírez on 02-23-2022 Platelet mean volume (Bld) [Entitic vol] 9.9 fL 6.2-12.0 [facility] Determination of erythrocyte mean corpuscular volume (MCV)Ordered By: Dr. Ramírez on 02-23-2022 MCV (RBC) [Entitic vol] 91.9 fL 80-94 [facility] Hematocrit Auto (Bld) [Volum e fraction]Ordered By: Dr. Ramírez on 02-23-2022 Hematocrit (Bld) [Volume fraction] 46.8 % 40-54 [facility] Laboratory - Chemistry and C hemistry - challengeOrdered By: Dr. Ramírez on 02-23-2022 ALP [Catalytic activity/Vol] 57 U/L 45-117 [facility] ALT [Catalytic activity/Vol] 72 U/L 16-61 [facility] CO2 [Moles/Vol] 27.0 mmol/L 21.0-32.0 [facility] Globulin (S) [Mass/Vol] 3.5 g/dL 2.2-4.2 [facility] Urea nitrogen/Creatinine [Mass ratio] 15.5 mg/mg 10-20 [facility] - Hematology and Cell countsOrdered By: Dr. Ramírez on 02-23-2022 Erythrocyte distribution width (RBC) [Entitic vol] 41.3 fL 35.1-43.9 [facility] Erythrocyte distribution width (RBC) [Ratio] 12.1 % 11.6-14.6 [facility] Immature granulocytes/100 WBC (Bld) 0.400 % 0.0-0.9 [facility] Comment on above: IG% - Immature Granu locytes (promyelocytes, myelocytes and metamyelocytes) > 1% indicates that a LEFT SHIFT is Present. MCH (RBC) [Entitic mass] 31.8 pg 27.0-32.0 [facility] Nucleated RBC/100 WBC (Bld) [Ratio] 0 % 0-5 [facility] Auto (RBC) [Mass/Vol]Or dered By: Dr. Ramírez on 02-23-2022 MCHC (RBC) [Mass/Vol] 34.6 g/dL 32-36 [facility] No Panel InformationOrdered By: Dr. Ramírez on 02-23-2022 Estimated GFR (MDRD) Amer 106 mL/min >60 [facility] Comment on above: GFR Calc Estimated GFR (MDRD) Non-Af Amer 87 mL/min >60 [facility] Comment on above: Non- GFR Calc Thyroid Stimulating Hormone (TSH) 0.72 uIU/mL 0.358-3.74 [facility] Platelets bldOrdered By: Dr. Ramírez on 02-23-2022 Platelets (Bld) [#/Vol] 284 10*3/uL 150-450 [facility] Serum or plasma albumin quentin urement (mass/volume)Ordered By: Dr. Ramírez on 02-23-2022 Albumin [Mass/Vol] 4.0 g/dL 3.2-5.0 [facility] Serum or plasma albumin/glob ulin mass ratioOrdered By: Dr. Rmaírez on 02-23-2022 Albumin/Globulin [Mass ratio] 1.1 {ratio} 0.9-2.4 [facility] Serum or plasma calcium quentin urement (mass/volume)Ordered By: Dr. Ramírez on 02-23-2022 Calcium [Mass/Vol] 8.9 mg/dL 8.5-10.1 [facility] Serum or plasma creatinine m easurement (mass/volume)Ordered By: Dr. Ramírez on 02-23-2022 Creatinine [Mass/Vol] 0.97 mg/dL 0.70-1.30 [facility] Comment on above: The validity of the calculated GFR & GFRAA in patients over 70 years has not been determined. Clinical correlation is essential. Serum or plasma urea nitroge n measurement (mass/volume)Ordered By: Dr. Ramírez on 02-23-2022 Urea nitrogen [Mass/Vol] 15 mg/dL 7-18 [facility] Thin prep Papanicolaou smear with manual screeningOrdered By: Dr. Ramírez on 02-23-2022 Thin prep Papanicolaou smear with manual screening 39 U/L 15-37 [facility] Thin prep Papanicolaou smear with manual screening 6 5-15 [facility] CNOVon 08-28-2020 CNOV Office Visit (UCWSTR) HARDIKMAYTEWILL Neela ([id number]) 1970 M Date Time Provider Department 08/28/20 11:30 AM MELANI CARNEY UCRODRIGO During your visit today, we recorded the following information about you: Temperature Pulse Respiration Blood pressure 97.5 degrees 76/minute 16/minute 132/84 Weight 129.7 kg Melani Carney APRN.CNP 08/28/2020 11:42 AM Signed ASSESSMENT/PLAN: 1. Acute pansinusitis, recurrence not specified [...] - Discussed expected course of illness Melani Carney APRN.CNP Pediatric Sinusitis Patient Education What is Sinusitis? Sinusitis [[id number]] is inflammation of the sinuses or swelling of the lining of the sinus cavity or nose. During an infection the sinuses become blocked with fluid causing swelling of the lining of the sinuses. Symptoms: (viral and bacterial infections) Stuffy nose Runny nose Postnasal drip Fever Toothache Headache Tiredness Cough Sore throat Facial and head pressure and or pain Common causes: Viruses cause 9 out of 10 sinus infections in children Allergies, air pollution, indoor humidity and outdoor temperature changes, and structural changes in the nose may contribute to sinus pain, pressure and congestion. When to get help? Temperature greater than 100.4 ?F Symptoms lasting more than 10 days or worsening symptoms greater than 7-10 days with no evidence of improvement. If your child does not improve or symptoms worsen after a course of antibiotics, the child should be re-examined. Diagnosis and Treatment: The healthcare provider will ask a number of questions about your symptoms and how long they have occurred. If symptoms of sinusitis persist greater than 10 days, it is possible you have a bacterial sinus infection and an antibiotic is prescribed. If it is viral, antibiotics will not help. Your child may be instructed to take [id number] medications for symptoms including fever reducers acetaminophen or ibuprofen, nasal saline spray as directed by the physician, nurse practitioner or physician quality control assistant. Over the counter cough and cold medications are not recommended since they can have harmful side effects and are not effective for children. Self-Care and Prevention: Rest Fluids for hydration Good hand washing Humidifier Avoid second hand smoke Avoid sick contacts Melani Carney APRN.APPLICATIONS DEVELOPER 08/28/2020 11:45 AM Signed Subjective HPI Will Nichols is a 50 [...] 20 mg by mouth daily at bedtime. lisinopril-hydroCHLO ROthiazide (PRINZIDE,ZESTORETIC ) 20-12.5 mg per tablet Take 1 tablet by mouth twice daily. LISINOPRIL ORAL Take by mouth. amoxicillin-clavulan ic acid (AUGMENTIN) 875-125 mg per tablet Take [...] Maxillary sinus tenderness and frontal sinus tenderness p (more content not included)... Normal [place] CT LOWER EXTREMITY LEFT MARTIN Ke[facility] 03-13-2019 Patient Name: WILL NICHOLS ---CT--- Exam Date/Time 03/13/2019 14:37:[address] Low Ext w/o Contrast Left Ordering Physician MD DEBBY, MARKUS ROMO Accession Number [id number] CPT4 Codes 45904 () Reason For Exam LEFT KNEE OA DERIK Report Exam Type: CT Low Ext w/o Contrast Left Exam Date and Time: 03/13/2019 2:37 PM EST Indication: Left knee osteoarthritis, preoperative Derik protocol Comparison: None available. Technique: Noncontrast CT imaging of the left knee was performed. Axial imaging of the left hip and ankle were also performed for the preoperative Derik protocol. Findings: Left hip: The left hip is in anatomic alignment. No fracture or dislocation. Bilateral hip osteoarthritis. 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 Degenerative changes of the pubic symphysis. Left knee: The left knee is in anatomic alignment. No fracture or dislocation. Tricompartmental osteoarthritis. Mild effusion. Left ankle: The hindfoot is in anatomic alignment. No fracture or dislocation. Mild degenerative changes of the first MTP joint as well as the hindfoot. Impression: Tricompartmental osteoarthritis of the left knee. Report Dictated on --- Final --- Dictated: 03/13/2019 2:58 pm Dictating Physician: MD NORTON NEIL Signed Date and Time: 03/13/2019 3:12 pm Signed by: MD NORTON NEIL Transcribed Date and Time: 03/13/2019 2:58 [facility] [place] Incoming Radiology Results From [facility] - 03/13/2019 3:13 PM EST Patient Name: WILL NICHOLS ---CT--- Exam Date/Time 03/13/2019 14:37:[address] Low Ext w/o Contrast Left Ordering Physician MD DEBBY, MARKUS ROMO Accession Number [id number] CPT4 Codes 78393 () Reason For Exam LEFT KNEE OA DERIK Report Exam Type: CT Low Ext w/o Contrast Left Exam Date and Time: 03/13/2019 2:37 PM EST Indication: Left knee osteoarthritis, preoperative Derik protocol Comparison: None available. Technique: Noncontrast CT imaging of the left knee was performed. Axial imaging of the left hip and ankle were also performed for the preoperative Derik protocol. Findings: Left hip: The left hip is in anatomic alignment. No fracture or dislocation. Bilateral hip osteoarthritis. 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 Degenerative changes of the pubic symphysis. Left knee: The left knee is in anatomic alignment. No fracture or dislocation. Tricompartmental osteoarthritis. Mild effusion. Left ankle: The hindfoot is in anatomic alignment. No fracture or dislocation. Mild degenerative changes of the first MTP joint as well as the hindfoot. Impression: Tricompartmental osteoarthritis of the left knee. Report Dictated on --- Final --- Dictated: 03/13/2019 2:58 pm Dictating Physician: MD NORTON NEIL Signed Date and Time: 03/13/2019 3:12 pm Signed by: MD NORTON NEIL Transcribed Date and Time: 03/13/2019 2:58 [facility] [place] Low Ext w/o Contrast Left on 03-13-2019 CT Low Ext w/o Contrast Left Patient Name: WILL NICHOLS CT Exam Date/Time 03/13/2019 14:37:[address] Low Ext w/o Contrast Left Ordering Physician MD DEBBY, MARKUSELIZA ROMO Accession Number [id number] CPT4 Codes 28603 () Reason For Exam LEFT KNEE OA DERIK Report Exam Type: CT Low Ext w/o Contrast Left Exam Date and Time: 03/13/2019 2:37 PM EST Indication: Left knee osteoarthritis, preoperative [facility] protocol Comparison: None available. Technique: Noncontrast CT imaging of the left knee was performed. Axial imaging of the left hip and ankle were also performed for the preoperative Derik protocol. Findings: Left hip: The left hip is in anatomic alignment. No fracture or dislocation. Bilateral hip osteoarthritis. 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 Degenerative changes of the pubic symphysis. Left knee: The left knee is in anatomic alignment. No fracture or dislocation. Tricompartmental osteoarthritis. Mild effusion. Left ankle: The hindfoot is in anatomic alignment. No fracture or dislocation. Mild degenerative changes of the first MTP joint as well as the hindfoot. Impression: Tricompartmental osteoarthritis of the left knee. Report Dictated on Final Dictated: 03/13/2019 2:58 pm Dictating Physician: MD NORTON NEIL Signed Date and Time: 03/13/2019 3:12 pm Signed by: MD NORTNO NEIL Transcribed Date and Time: 03/13/2019 2:58 Normal [facility] Vital Signs Date Time Vital Sign Value Performing Clinician Facility 12-25-2024 08:08-0400 Body height 180.[address] Nito Canseco MD Work Phone: [facility] 12-25-2024 08:08-0400 Body mass index (BMI) [Ratio] 32.2 kg/m2 Dr. Nito Canseco MD Work Phone: [facility] 12-25-2024 08:08-0400 Body temperature 97.8 [degF] Dr. Nito Canseco MD Work Phone: [facility] 12-25-2024 08:08-0400 Body weight 104.[address] Nito Canseco MD Work Phone: [facility] 12-25-2024 08:08-0400 Diastolic blood pressure 80 mm[Hg] Dr. Nito Canseco MD Work Phone: [facility] 12-25-2024 08:08-0400 Heart rate 77 /min Dr. Nito Canseco MD Work Phone: [facility] 12-25-2024 08:08-0400 Respiratory rate 18 /min Dr. Nito Canseco MD Work Phone: [facility] 12-25-2024 08:08-0400 SaO2% (BldA) [Mass fraction] 99 % Dr. Nito Canseco MD Work Phone: [facility] 12-25-2024 08:08-0400 Systolic blood pressure 128 mm[Hg] Dr. Nito Canseco MD Work Phone: [facility] 12-17-2024 13:01-0400 Body height 180.[address] Nito Canseco MD Work Phone: [facility] 12-17-2024 13:01-0400 Body mass index (BMI) [Ratio] 31.6 kg/m2 Dr. Nito Canseco MD Work Phone: [facility] 12-17-2024 13:01-0400 Body temperature 97 [degF] Dr. Nito Canseco MD Work Phone: [facility] 12-17-2024 13:01-0400 Body weight 102.[address] Nito Canseco MD Work Phone: [facility] 12-17-2024 13:01-0400 Diastolic blood pressure 92 mm[Hg] Dr. Nito Canseco MD Work Phone: [facility] 12-17-2024 13:01-0400 Heart rate 73 /min Dr. Nito Canseco MD Work Phone: [facility] 12-17-2024 13:01-0400 Respiratory rate 16 /min Dr. Nito Canseco MD Work Phone: [facility] 12-17-2024 13:01-0400 SaO2% (BldA) [Mass fraction] 98 % Dr. Nito Canseco MD Work Phone: [facility] 12-17-2024 13:01-0400 Systolic blood pressure 136 mm[Hg] Dr. Nito Canseco MD Work Phone: [facility] 10-28-2024 14:18-0400 Body height 180.[address] Nito Canseco MD Work Phone: [facility] 10-28-2024 14:18-0400 Body mass index (BMI) [Ratio] 31.6 kg/m2 Dr. Nito Canseco MD Work Phone: [facility] 10-28-2024 14:18-0400 Body temperature 97.9 [degF] Dr. Nito Canseco MD Work Phone: [facility] 10-28-2024 14:18-0400 Body weight 102.[address] Nito Canseco MD Work Phone: [facility] 10-28-2024 14:18-0400 Diastolic blood pressure 80 mm[Hg] Dr. Nito Canseco MD Work Phone: [facility] 10-28-2024 14:18-0400 Heart rate 84 /min Dr. Nito Canseco MD Work Phone: [facility] 10-28-2024 14:18-0400 Respiratory rate 16 /min Dr. Nito Canseco MD Work Phone: [facility] 10-28-2024 14:18-0400 SaO2% (BldA) [Mass fraction] 99 % Dr. Nito Canseco MD Work Phone: [facility] 10-28-2024 14:18-0400 Systolic blood pressure 114 mm[Hg] Dr. Nito Canseco MD Work Phone: [facility] 09-30-2024 09:23-0400 Body temperature 98.4 [degF] Dr. Nito Canseco MD Work Phone: [facility] 09-30-2024 09:23-0400 Diastolic blood pressure 60 mm[Hg] Dr. Nito Canseco MD Work Phone: [facility] 09-30-2024 09:23-0400 Heart rate 64 /min Dr. Nito Canseco MD Work Phone: [facility] 09-30-2024 09:23-0400 Respiratory rate 15 /min Dr. Nito Canseco MD Work Phone: [facility] 09-30-2024 09:23-0400 SaO2% (BldA) [Mass fraction] 97 % Dr. Nito Canseco MD Work Phone: [facility] 09-30-2024 09:23-0400 Systolic blood pressure 108 mm[Hg] Dr. Nito Canseco MD Work Phone: [facility] 07-22-2024 10:54-0400 Body height 180.[address] Nito Canseco MD Work Phone: [facility] 07-22-2024 10:54-0400 Body mass index (BMI) [Ratio] 31.8 kg/m2 Dr. Nito Canseco MD Work Phone: [facility] 07-22-2024 10:54-0400 Body temperature 98.2 [degF] Dr. Nito Canseco MD Work Phone: [facility] 07-22-2024 10:54-0400 Body weight 103.[address] Nito Canseco MD Work Phone: [facility] 07-22-2024 10:54-0400 Diastolic blood pressure 76 mm[Hg] Dr. Nito Canseco MD Work Phone: [facility] 07-22-2024 10:54-0400 Heart rate 86 /min Dr. Nito Canseco MD Work Phone: [facility] 07-22-2024 10:54-0400 Respiratory rate 18 /min Dr. Nito Canseco MD Work Phone: [facility] 07-22-2024 10:54-0400 SaO2% (BldA) [Mass fraction] 97 % Dr. Nito Canseco MD Work Phone: [facility] 07-22-2024 10:54-0400 Systolic blood pressure 120 mm[Hg] Dr. Nito Canseco MD Work Phone: [facility] 04-16-2024 17:14-0500 Body height 180.[address] Nito Canseco MD Work Phone: [facility] 04-16-2024 17:14-0500 Body mass index (BMI) [Ratio] 34.9 kg/m2 Dr. Nito Canseco MD Work Phone: [facility] 04-16-2024 17:14-0500 Body temperature 97.8 [degF] Dr. Nito Canseco MD Work Phone: [facility] 04-16-2024 17:14-0500 Body weight 113.[address] Nito Canseco MD Work Phone: [facility] 04-16-2024 17:14-0500 Diastolic blood pressure 80 mm[Hg] Dr. Nito Canseco MD Work Phone: [facility] 04-16-2024 17:14-0500 Heart rate 92 /min Dr. Nito Canseco MD Work Phone: [facility] 04-16-2024 17:14-0500 Respiratory rate 16 /min Dr. Nito Canseco MD Work Phone: [facility] 04-16-2024 17:14-0500 SaO2% (BldA) [Mass fraction] 98 % Dr. Nito Canseco MD Work Phone: [facility] 04-16-2024 17:14-0500 Systolic blood pressure 118 mm[Hg] Dr. Nito Canseco MD Work Phone: [facility] 05-06-2023 09:33-0500 Body height 180.[address] Nito Canseco Work Phone: [facility] 05-06-2023 09:33-0500 Body mass index (BMI) [Ratio] 40.1 kg/m2 Dr. Nito Canseco Work Phone: [facility] 05-06-2023 09:33-0500 Body temperature 98.1 [degF] Dr. Nito Canseco Work Phone: [facility] 05-06-2023 09:33-0500 Body weight 130.[address] Nito Canseco Work Phone: [facility] 05-06-2023 09:33-0500 Diastolic blood pressure 82 mm[Hg] Dr. Nito Canseco Work Phone: [facility] 05-06-2023 09:33-0500 Heart rate 64 /min Dr. Nito Cansceo Work Phone: [facility] 05-06-2023 09:33-0500 Respiratory rate 16 /min Dr. Nito Canseco Work Phone: [facility] 05-06-2023 09:33-0500 SaO2% (BldA) [Mass fraction] 98 % Dr. Nito Canseco Work Phone: [facility] 05-06-2023 09:33-0500 Systolic blood pressure 124 mm[Hg] Dr. Nito Canseco Work Phone: [facility] 03-25-2023 09:17-0500 Body height 180.[address] Nito Canseco Work Phone: [facility] 03-25-2023 09:17-0500 Body mass index (BMI) [Ratio] 39 kg/m2 Dr. Nito Canseco Work Phone: [facility] 03-25-2023 09:17-0500 Body temperature 98.5 [degF] Dr. Nito Canseco Work Phone: [facility] 03-25-2023 09:17-0500 Body weight [address] Nito Canseco Work Phone: [facility] 03-25-2023 09:17-0500 Diastolic blood pressure 92 mm[Hg] Dr. Nito Canseco Work Phone: [facility] 03-25-2023 09:17-0500 Heart rate 78 /min Dr. Nito Canseco Work Phone: [facility] 03-25-2023 09:17-0500 Respiratory rate 16 /min Dr. Nito Canseco Work Phone: [facility] 03-25-2023 09:17-0500 SaO2% (BldA) [Mass fraction] 98 % Dr. Nito Canseco Work Phone: [facility] 03-25-2023 09:17-0500 Systolic blood pressure 144 mm[Hg] Dr. Nito Canseco Work Phone: [facility] 01-04-2023 10:15-0400 Body height 180.[address] Hardeep Schafer Work Phone: [facility] 01-04-2023 10:15-0400 Body mass index (BMI) [Ratio] 39.6 kg/m2 Dr. Hardeep Schafer Work Phone: [facility] 01-04-2023 10:15-0400 Body temperature 97.1 [degF] Dr. Hardeep Schafer Work Phone: [facility] 01-04-2023 10:15-0400 Body weight 128.[address] Hardeep Schafer Work Phone: [facility] 01-04-2023 10:15-0400 Diastolic blood pressure 82 mm[Hg] Dr. Hardeep Schafer Work Phone: [facility] 01-04-2023 10:15-0400 Heart rate 73 /min Dr. Hardeep Schafer Work Phone: [facility] 01-04-2023 10:15-0400 Respiratory rate 16 /min Dr. Hardeep Schafer Work Phone: [facility] 01-04-2023 10:15-0400 SaO2% (BldA) [Mass fraction] 99 % Dr. Hardeep Schafer Work Phone: [facility] 01-04-2023 10:15-0400 Systolic blood pressure 124 mm[Hg] Dr. Hardeep Schafer Work Phone: [facility] 10-17-2022 20:10-0400 Blood Pressure Cuff Size DR RASHID MCCARTNEY DO [facility] 10-17-2022 20:10-[address] RASHID MCCARTNEY DO [facility] 10-17-2022 20:10-[address] RASHID MCCARTNEY DO [facility] 10-17-2022 20:10-0400 Body height 180.[address] RASHID MCCARTNEY DO [facility] 10-17-2022 20:10-0400 Body temperature 98.78 [degF] DR RASHID MCCARTNEY DO [facility] 10-17-2022 20:10-0400 Body weight 127.[address] RASHID MCCARTNEY DO [facility] 10-17-2022 20:10-0400 Diastolic Blood Pressure Non-Invasive [address] RASHID MCCARTNEY DO [facility] 10-17-2022 20:10-0400 Heart rate 90 /min DR RASHID MCCARTNEY DO [facility] 10-17-2022 20:10-0400 Respiratory rate 16 /min DR RASHID MCCARTNEY DO [facility] 10-17-2022 20:10-0400 Systolic Blood Pressure Non-Invasive [address] RASHID MCCARTNEY DO [facility] 10-03-2022 09:14-0400 Body height 180.[address] Wayne Ramírez Work Phone: [facility] 10-03-2022 09:14-0400 Body mass index (BMI) [Ratio] 38.9 kg/m2 Dr. Wayne Ramírez Work Phone: [facility] 10-03-2022 09:14-0400 Body temperature 97.7 [degF] Dr. Wayne Ramírez Work Phone: [facility] 10-03-2022 09:14-0400 Body weight 126.[address] Wayne Ramírez Work Phone: [facility] 10-03-2022 09:14-0400 Diastolic blood pressure 88 mm[Hg] Dr. Wayne Ramírez Work Phone: [facility] 10-03-2022 09:14-0400 Heart rate 79 /min Dr. Wayne Ramírez Work Phone: [facility] 10-03-2022 09:14-0400 Respiratory rate 16 /min Dr. Wayne Ramírez Work Phone: [facility] 10-03-2022 09:14-0400 SaO2% (BldA) [Mass fraction] 97 % Dr. Wayne Ramírez Work Phone: [facility] 10-03-2022 09:14-0400 Systolic blood pressure 138 mm[Hg] Dr. Wayne Ramírez Work Phone: [facility] 07-11-2022 13:30-0400 Body mass index (BMI) [Ratio] 39 kg/m2 Dr. Wayne Ramírez Work Phone: [facility] 07-11-2022 13:30-0400 Body temperature 97.7 [degF] Dr. Wayne Ramírez Work Phone: [facility] 07-11-2022 13:30-0400 Body weight [address] Wayne Ramírez Work Phone: [facility] 07-11-2022 13:30-0400 Diastolic blood pressure 80 mm[Hg] Dr. Wayne Ramírez Work Phone: [facility] 07-11-2022 13:30-0400 Heart rate 72 /min Dr. Wayne Ramírez Work Phone: [facility] 07-11-2022 13:30-0400 Respiratory rate 16 /min Dr. Wayne Ramírez Work Phone: [facility] 07-11-2022 13:30-0400 SaO2% (BldA) [Mass fraction] 97 % Dr. Wayne Ramírez Work Phone: [facility] 07-11-2022 13:30-0400 Systolic blood pressure 138 mm[Hg] Dr. Wayne Ramírez Work Phone: [facility] Encounters Encounter Date Encounter Type Care Provider Facility Start: 03-03-2025 End: 03-03-2025 ambulatory Nito Welchdeb Facility:[facility] Start: 02-24-2025 End: 02-24-2025 ambulatory Cliveemmanuel Ajith Facility:[facility] Start: 02-05-2025 End: 02-05-2025 ambulatory Pauline Crockett Facility:[facility] Start: 01-04-2025 End: 01-04-[address] Nito Canseco MD Work Phone: [facility] Start: 01-04-2025 End: 01-04-[address] Nito Canseco MD -[facility] Start: 01-04-2025 End: 01-04-2025 ambulatory [facility] Facility:[facility] Start: 12-25-2024 End: 12-25-[address] Nito Canseco MD -[facility] Work Phone: Start: 12-25-2024 End: 12-25-[address] Nito Canseco MD Work Phone: [facility] Start: 12-17-2024 End: 12-17-2024 Patient encounter procedure Pauline Crockett [employer] -[facility] Work Phone: Start: 12-17-2024 End: 12-17-[address] Nito Canseco MD Work Phone: -[facility] Start: 10-28-2024 End: 10-28-[address] Nito Canseco MD -[facility] Work Phone: Start: 10-28-2024 End: 10-28-[address] Nito Canseco MD Work Phone: -[facility] Start: 09-30-2024 End: 09-30-2024 Patient encounter procedure [place] -[facility] Work Phone: Start: 09-30-2024 End: 09-30-[address] Nito Canseco MD Work Phone: [facility] Work Phone: Start: 07-22-2024 End: 07-22-[address] Nito Canseco MD -[facility] Work Phone: Start: 07-22-2024 End: 07-22-2024 ambulatory Nito Canseco Facility:[facility] Start: 07-03-2024 End: 07-03-[address] Nito Canseco MD Work Phone: [facility] Work Phone: Start: 07-03-2024 End: 07-03-[address] Nito Canseco MD -[facility], [facility] Start: 07-03-2024 End: 07-03-2024 [facility] Start: 04-16-2024 End: 04-16-[address] Nito Canseco MD -[facility] Work Phone: Start: 04-16-2024 End: 04-16-2024 ambulatory Nito Canseco Facility:[facility] Start: 05-06-2023 End: 05-06-[address] Nito Canseco Work Phone: [facility] Work Phone: Start: 05-02-2023 End: 05-02-[address] Nito Canseco Work Phone: [facility] Work Phone: Start: 05-02-2023 End: 05-02-[address] Nito Canseco Work Phone: [facility] Start: 04-10-2023 End: 04-10-[address] Nito Canseco Work Phone: [facility] Work Phone: Start: 04-10-2023 End: 04-10-[address] Nito Canseco Work Phone: [facility] Work Phone: Start: 03-25-2023 End: 03-25-[address] Nito Canseco Work Phone: [facility] Work Phone: Start: 01-04-2023 End: 01-04-[address] Hardeep Schafer Work Phone: [facility] Work Phone: Start: 01-04-2023 End: 01-04-[address] Hardeep Schafer Work Phone: [facility] Work Phone: Start: 10-17-2022 End: 10-17-2022 Emergency department patient visit DR RASHID MCCARTNEY DO Facility:[facility] Start: 10-17-2022 End: 10-17-2022 Emergency department patient visit DR RASHID MCCARTNEY DO [facility] Start: 10-03-2022 End: 10-03-[address] Wayne Ramírez Work Phone: [facility] Work Phone: Start: 09-19-2022 End: 09-19-[address] Wayne Ramírez Work Phone: [facility] Work Phone: Start: 09-19-2022 End: 09-19-[address] Wayne Ramírez Work Phone: [facility] Start: 07-11-[address] Wayne Ramírez Work Phone: [facility] Start: 07-11-2022 End: 07-11-2022 Encounter for general adult medical examination without abnormal findings Dr. Wayne Ramírez Work Phone: [facility] Start: 07-11-2022 End: 07-11-[address] Wayne Ramírez Work Phone: [facility] Work Phone: Start: 05-28-2022 End: 05-28-2022 ambulatory [facility] Work Phone: Start: 05-28-2022 End: 05-28-2022 [facility] Start: 02-23-2022 End: 02-23-2022 ambulatory [facility] Work Phone: Start: 02-23-2022 End: 02-23-2022 Patient encounter procedure [facility], Morgan Sanchez [facility] Start: 09-13-2021 Non-patient / Non-visit Dr. Richard Ramírez Work Phone: [facility] Start: 09-13-2021 End: 09-13-[address] [facility] Start: 03-13-2019 End: 03-13-2019 Subsequent hospital visit by physician Markus Ferris Work Phone: [facility] SCAN Comment on above: Arrived Procedures Date Procedure Procedure Detail Performing Clinician Start: 07-03-2024 Prostate specific an tigen measurement Dr. Nito Canseco MD Work Phone: Comment on above: This test was perfor med using the [employer] tPSA method. Measured values of a patient sample can vary depending on the testing procedure used. PSA values determined on patient samples by different testing procedures cannot be used interchangeably. If there is a change in PSA assays while monitoring therapy, sequential testing should be performed to confirm baseline values. Start: 03-13-2019 Ct lower extremity w /o contrast material Markus Ferris Work Phone: Knee region structur e (body structure) DR RASHID MCCARTNEY DO Plan of Treatment Date Care Activity Detail Author Start: 03-15-2025 ambulatory Ambulatory Facility:[facility] Start: 10-03-2022 Patient referral [facility] Work Phone: Start: 12-28-2018 Influenza vaccination Flu vaccine (# 1) [place], [place] Start: 2012 Lipid screen Lipid screen [place], [place] Start: 01-01-1987 HIV screen HIV screen [place], [place] Start: 01-01-1983 DTaP/Tdap/Td vaccine (1 - Tdap) DTaP/Tdap/Td vaccine (1 - Tdap) [place], [place] Basic metabolic 2008 panel with ionized calcium - Serum or Plasma [facility] CBC W Auto Different ial panel - Blood [facility] CBC W Auto Different ial panel - Blood [facility] Comprehensive metabo lic 1999 panel - Serum or Plasma [facility] CT Lumbar spine [facility] Hemoglobin A1c/Hemoglobin.total in Blood [facility] Lipid 1996 panel - S clemente or Plasma [facility] Patient referral [facility] Work Phone: T4 free measurement [facility] Thyroid stimulating hormone measurement [facility] Immunizations Immunization Date Immunization Notes Care Provider Flakito friend 01-23-2024 influenza, injectabl e, madin beatriz canine kidney, preservative free Dr. Nito Canseco MD Work Phone: [facility] 01-23-2024 Influenza, injectabl e, Madin [place] Canine Kidney, preservative free, quadrivalent Dr. Nito Canseco MD Work Phone: [facility] 02-16-2023 influenza, injectabl e, quadrivalent, preservative free Dr. Nito Canseco MD Work Phone: [facility] 10-17-2022 tetanus toxoid, redu brenna diphtheria toxoid, and acellular pertussis vaccine, adsorbed DR RASHID MCCARTNEY DO [facility] 02-23-2022 influenza, injectabl e, quadrivalent, preservative free Dr. Nito Canseco MD Work Phone: [facility] 04-13-2021 Covid (Pfizer) Dr. Nito Canseco MD Work Phone: [facility] 06-08-2020 Covid (Pfizer) Dr. Nito Canseco MD Work Phone: [facility] 03-23-2020 influenza, injectabl e, quadrivalent, preservative free Dr. Nito Canseco MD Work Phone: [facility] 01-15-2019 influenza, injectabl e, quadrivalent, preservative free Dr. Nito Canseco MD Work Phone: [facility] 01-25-2018 influenza, injectabl e, quadrivalent, preservative free Dr. Nito Canseco MD Work Phone: [facility] 02-23-2017 influenza, injectabl e, quadrivalent, preservative free Dr. Nito Canseco MD Work Phone: [facility] 03-16-2016 influenza, injectabl e, quadrivalent, preservative free Dr. Nito Canseco MD Work Phone: [facility] Payers Date Payer Category Payer Self-pay [id number] 2022 Unknown [id number] 1970 Unknown [id number] 2.16.8 [id number] Unknown [id number] 2.16.8 [id number] Unknown [id number] 2.16.8 [id number] Unknown [id number] 2.16.8 [id number] Unknown [id number] 2.16.8 [id number] Unknown [id number] 2.16.8 [id number] Unknown [id number] 2.16.8 [id number] Unknown [id number] 2.16.8 [id number] Unknown [id number] 2.16.8 [id number] Unknown [id number] 2.16.8 [id number] Unknown [id number] 2.16.8 [id number] Unknown [id number] 2.16.8 [id number] Unknown [id number] 2.16.8 [id number] Social History Date Type Detail [facility] [place] Sex Assigned At Not on file [place] Start: 1970 Sex Assigned At Male [facility] Start: 08-14-2023 End: 09-30-2024 Tobacco smoking status Never smoked tobacco (finding) [facility] Sex Assigned At Sex [facility] Start: 10-03-2022 End: 05-06-2023 Tobacco smoking status NHIS Unknown if ever smoked [facility] Start: 07-15-2024 Sex Male (finding) [facility] Sex Male [facility] Functional Status Date Assessment Result Facility 10-17-2022 Functional Status Activity Prosper tance Independent [facility] Mental Status Date Assessment Result Facility 10-17-2022 Mental Status Orientation Oriented x 4 [facility] Clinical Notes 08-28-2020 to 10-28-2024 Note Date & Type Note Facility 10-28-2024 Evaluation note Diagnosis Onset Date Resolution Falls acute October 28, 2024 2:03pm Anxiety and depression chronic [facility] 2024 2:03pm Hypertension chronic October 28 2:03pm [facility] treated with BiPAP chronic [facility] 2024 2:03pm Type 2 diabetes mellitus chronic October 28, 2024 2 :03pm [facility] Work Phone: 1(160) 291-871907-02-2025 Evaluation note* Diagnosis Onset Date Resolution Status Admit Date Falls acute October 28, 2024 2:03pm Anxiety and depression chronic Ju [facility] 2024 2:03pm Hypertension chronic October 28 2:03pm MOISES treated with BiPAP chronic Ju ly 2024 2:03pm Type 2 diabetes mellitus chronic October 28, 2024 2:03pm Mass of lumbar region of back acute December 17, 2024 12:47pm [facility] Work Phone: 1(637) 476-890707-02-2025 Evaluation note* Diagnosis Onset Date Resolution Status Admit Date Falls acute October 28, 2024 2:03pm Anxiety and depression chronic [facility] 2024 2:03pm Hypertension chronic October 28 2:03pm MOISES treated with BiPAP chronic [facility] 2024 2:03pm Type 2 diabetes mellitus chronic October 28, 2024 2:03pm Mass of lumbar region of back acute December 17, 2024 12:47pm Anxiety disorder with panic attacks acute December 25 8:06am Anxiety and depression chronic [facility] 2024 8:06am PTSD (post-traumatic stress disorder) chronic December 25 8:06am [facility] Work Phone: [phone] Evaluation note* Diagnosis Onset Date Resolution Status Admit Date Falls acute July 22 10:34am Anxiety and depression chronic [facility] 2024 10:34am Hypertension chronic July 22, 2024 10:34am Type 2 diabetes mellitus chronic July 22, 2024 10:34am [facility] Work Phone: 1(930) 289-160312-19-2024 Evaluation note* Diagnosis Onset Date Resolution Status Admit Date Sinusitis, acute acute April 16, 2024 4:59pm Anxiety and depression chronic De cember 2023 4:59pm Hypertension chronic March 4:59pm Type 2 diabetes mellitus chronic April 16, 2024 4:59pm [facility] Work Phone: 1(590) 839-684012-28-2023 Discharge summary Author Dinesh Jones [facility] April 25, 2023 12:54pm Note Date/Time April 25, 2023 12:30pm [facility] [address] [place] [address] / REHABILITATION SERVICES DISCHARGE SUMMARY MR#: [id number] Acct: [id number] Name: WILL NICHOLS Rep #: [id number] : 1970 53 From: Cert. THIERRY Tucker, OCS Referring Dr.: OUT OF TOWN DOCTOR Status: REG RCR Insurance: [facility] SELF PAY INSURANCE Discharge Summary D/C summary: It has been my pleasure to treat WILL NICHOLS referred by FANY WEBB, with the diagnosis of LUMBAR SPONDYLOSIS for a total of 11 visit(s). Discharge Date: Please see the following information for a summary of their discharge status. Subjective Subjective: Plan to See Saturday Patient was on feet extended periods left LS occasional lateral hip Pain Left Back: Pain Intensity (Out of 10): 4 Overall Improvement % Improvement: 60 Objective Objective/Function: POSTURE: forward posture hips/knees flexed ,asymmetries pelvis GAIT: reciprocal pattern with 2 point with cane mild foreward posture NEURO: denies paresthesia/tingling ,reflexes L3-4 ,L4-5 ,L5-S1 1/3 MMT: quads/hams /hip peak force ~ 5.2,ankle 4-/5 LUMABR ROM: flexion min/mod loss ,extension mod ,side glides min/mod loss all planes of motion FLEXABILITY: hamstrings mod loss THORACIC ROM: flexion mod loss loss ,extension severe loss ,rotation mod loss Goals Goal 1:: Patient to be I with HEP for lumbar Goal 2:: Patient to improve posture/body mechanics 90% Goal 3:: Patient to demonstrate 50% improvement with decrease pain and improved function. Goal 4:: Patient to improve lumbar ROM for function of recovery for job demands Goal 5:: Patient to improve back oswestry score by 5 points to improve function Plan Plan: RTD D/C Information d/c sentence: If there are questions or concerns regarding this patient's physical therapy, please feel free to call me at [phone]. Thank you for the referral of thispatient. Sincerely, Dinesh Jones PT, Cert T, OCS Balance/Gait/Functional tests Balance/Special Test Scores Oswestry Low Back Score: 24 Improvement % Improvement: 60 <Electronically signed by Zeeshan Diaz PT. THIERRY, OCS> 04/25/23 1254 CC: FANY WEBB; Dr. Nito Canseco MD ~ ROSARIO Signed [facility] Work Phone: 1(540) 484-692306-21-2023 Hospital Discharge instructions Patient Education 10/17/2022 20:27:22 Wound Care [...] to the wound, moisten it with saline (ifavailable) or clean water. If you have a [...] a problem: Bleeding that soaks the dressing [place] fluid weeping from the wound Increased drainage [...] increased fatigue, or a loss of appetite [id number] The [employer]. [address] [place] [address]. All rights reserved. This information is not intended as a substitute for professional medical care. Always follow yourhealthcare professional's instructions. Follow Up Care 10/17/2022 20:09:50 With:ANUPAMA HARDY MD Address: [address] [place], [place] [address]- When:2-4 days [facility] 06-21-2023 Note Discharge Instructions Thank you for allowing [facility] to assist you with your healthcare needs. The following is importantdischarge information regarding your hospital visit. Diagnosis from Today's Visit Finger injury - Minor What to Do Next Instructions from Your Care Team No qualifying data available. Post Acute Orders No qualifying data available. You Need to Schedule the Following Appointments Follow Up with ANUPAMA HARDY MD When Within 2-4 days Where: [address] [place] [address]- Allergies NKA Medications Please ask your primary doctor or pharmacist before taking any other medication not listed, including over the counter drugs, herbal medications, vitamins and or supplements as they may interact withyour home medications. What How Much When Instructions [...] may report side effects to FDA at 7-997-KVO-9331. What other drugs will affect cephalexin? Tell your doctor about all your other medicines, especially: metformin; or probenecid. This list is not complete. Other drugs may affect cephalexin, including prescription and khhq-ywc-snwopzw medicines, vitamins, and herbal products. Not all [...] to ensure that the information provided by [employer]. ('[employer]') is accurate, up-to-date, and complete, but no guarantee is made to that effect. Drug information contained herein may be time sensitive. [employer] information has been compiled for use by healthcare practitioners and consumers in the [place] and therefore [employer] does not warrant that uses outside of the [place] are appropriate, unless specifically indicated otherwise. [employer] drug information does not endorse drugs, diagnose patients or recommend therapy. [employer] drug information isan informational resource designed to assist licensed healthcare practitioners in caring for their p atients and/or to serve consumers viewing this service as a supplement to, and not a substitute for, the expertise, skill, knowledge and judgment of healthcare practitioners. The absence of a warningfor a given drug or drug combination in no way should be construed to indicate that the drug or drug combination is safe, effective or appropriate for any given patient. [facility] does not assume any responsibility for any aspect of healthcare administered with the aid of information [facility] provides. The information contained herein is not intended to cover all possible uses, directions, precautions, warnings, drug interactions, allergic reactions, or adverse effects. If you have questions about the drugs you are taking, check with your doctor, nurse or pharmacist. Copyright 6606-[address] [facility]. Version: 10.03. Revision Date: 05/02/2020. Education Materials Wound Care [...] to the wound, moisten it with saline (ifavailable) or clean water. If you have a [...] a problem: Bleeding that soaks the dressing [place] fluid weeping from the wound Increased drainage [...] increased fatigue, or a loss of appetite [phone] The [employer]. [address] [place] [address]. All rights reserved. This information is not intended as a substitute for professional medical care. Always follow yourhealthcare professional's instructions. Additional Information VACCINATE! IT SAVES LIVES! Members of the community who have not yet received the COVID-19 vaccine and would like to receive it can visit one of [facility] vaccine clinics. There are many vaccine clinic locations within the [facility]. For locations and available times, please visit www.gettheshot.coronavirus.[place].gov/. It is important to note that some COVID mobile vaccine clinics are held outdoors and may be canceled in rainy or stormy conditions. To learn more about pediatric vaccinations (ages 5-11), we invite you to visit the [facility] webpage. https://www.[email or web address]/pages/[email or web address]-Lfbeaqcmlyh-Wscvcivytw-Qjuqn-Kkx stions.htmlTo learn more about the COVID-19 vaccine, we invite you to visit the CDC website for a list of frequently asked questions. https://www.cdc.gov/coronavirus/2019-ncov/vaccines/faq.html [facility] Patient Portal Access Instructions: Stay connected with your healthcare team and access your personal medical information anytime with the [employer] Patient Portal. If you would like a full copy of your medical records please contact the [facility] Medical Records Department Saturday through Saturday between 8a.m. and 4:30p.m. Please follow the directions below to access the portal: 1.Access the email account you provided upon registration to the [facility].2.Look for an invitation email from [facility].3.Open the email and access the invitation link: Accept Invitation to [facility]4.Fill in the required porter to create your account. Sign into www.SugarSync with your username and password that you [...] you will allow to register on the [employer] Patient Portal for access to your information. You can also access the [employer] Patient Portal on the [employer] amna. Simply click on Health Records under [employer] and then click on the [employer] logo. HOW TO SAFELY DISPOSE OF PRESCRIPTION MEDICATIONS Please use one of the following methods to safely dispose of your unused medications. 1.Use a drug disposal kit: the drug disposal pouch allows you to safely discard your old and unuseddrugs. Ask your nurse to give you one when you are discharged.2.Visit a local take-back location: Many local pharmacies and police departments have programs that collect old and unwanted prescriptiondrugs. Call your local pharmacy or go to http://bit.CoTweet/1J3Hh5q to find one close to you.3.Make use of household items: Use cat litter or old coffee grounds to dispose medications if other options arenot available. Mix your drugs with these household products, seal them in an airtight container andthrow it into the garbage. Call [facility]: [phone] to be sure your drugs can be [...] drowsiness, such as benzodiazepines, also known as benzos,including diazepam and alprazolam, muscle relaxants or sleep aids. Never sell or share prescriptionopioids. This is illegal. Store opioids in a [...] questions, I am aware that I should contactmy doctor. 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 Author Type: Nurse Practitioner Type: [...] - Discussed expected course of illness Melani Carney APRN.[facility] note No data available for this section [facility] Evaluation noteNo assessment information available [facility] Work Phone: Evaluation note* Diagnosis Onset Date Resolution Status Preventative health care acu te Anxiety and depression chron ic Hypertension chronic Obstructive sleep apnea sql developer brittany Anxiety and depression chron ic Hypertension chronic Insomnia chronic MOISES treated with BiPAP chron ic PTSD (post-traumatic stress disorder) [facility] Work Phone: Evaluation note* Diagnosis Onset Date Resolution Status Anxiety and depression chron ic Hypertension chronic Insomnia chronic MOISES treated with BiPAP chron ic PTSD (post-traumatic stress disorder) chronic Borderline type 2 diabetes mellitus acute Anxiety and depression chron ic Hypertension chronic Insomnia chronic [facility] Work Phone: Evaluation note* Diagnosis Onset Date Resolution Status Borderline type 2 diabetes mellitus acute Anxiety and depression chron ic Hypertension chronic Insomnia chronic Impacted cerumen of both ears acute [facility] Work Phone: Evaluation note* Diagnosis Onset Date Resolution Status Impacted cerumen of both ears acute Borderline type 2 diabetes mellitus acute Anxiety and depression chron ic Hypertension chronic [facility] Work Phone: Hospital Discharge instructionsAmbulatory Orders* Psychiatry Location: None Selected [facility] Work Phone: Reason for referral (narrative)No reason for referral information [facility]WEast [facility] Work Phone: Summary Purpose Family History No Family History Records Found Relationship Condition Age at Onset Recorded Date/T ravi mother Anemia Unknown Arthritis Unknown Hemorrhagic disorder Unknown Hypertension Unknown High blood cholesterol Unknown Factor V deficiency Unknown Deep vein thrombosis (DVT) Unknown father Arthritis Unknown Diabetes mellitus Unknown Cerebrovascular accident (CVA) Unknown sister Hemorrhagic disorder Unknown grandmother Cerebrovascular accident (CVA) Unknown Advance Directives No Advanced Directives Records FoundDocuments on File Type Date Recorded 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 3 m fu Reason for Visit Preventative health care Anxiety and depression Hypertension Obstructive sleep apnea Anxiety and depression Hypertension Insomnia MOISES treated with BiPAP PTSD (post-traumatic stress disorder) Chief Complaint 3 m fu 3 m fu Reason for Visit Anxiety and depressi on Hypertension Insomnia MOISES treated with BiPAP PTSD (post-traumatic stress disorder) Borderline type 2 diabetes mellitus Anxiety and depression Hypertension Insomnia Chief Complaint 3 m fu EAR CLOGGED LUMBAR SPOND RX HERE Reason for Visit Borderline type 2 di abetes mellitus Anxiety and depression Hypertension Insomnia Impacted cerumen of both ears Chief Complaint EAR CLOGGED LUMBAR SPOND RX HERE 4 M FU Reason for Visit Impacted cerumen of both ears Borderline type 2 diabetes mellitus Anxiety and depression Hypertension Chief Complaint Admit Date 3 M FU April 16, 2024 4:59pm Reason for Visit Admit Date Sinusitis, acute April 16, 2024 4:59pm Anxiety and depression April 16 4:59pm Hypertension April 16, 2024 4:59pm Type 2 diabetes mellitus April 16, 2024 4:59pm Chief Complaint Admit Date 3 M FU July 22, 2024 10: 34am SINUS COMP/HENDRICKSON/BILAT EAR PAIN/X9 DAYS Sep 9:12am Reason for Visit Admit Date Falls July 22, 2024 10: 34am Anxiety and depression July 22, 2024 10:34am Hypertension July 22, 2024 10: 34am Type 2 diabetes mellitus July 22 10:34am Chief Complaint Admit Date 3 M FU July 22, 2024 10: 34am SINUS COMP/HENDRICKSON/BILAT EAR PAIN/X9 DAYS Sep 9:12am 3 M FU October 28, 2024 2:03p m Chief Complaint Admit Date SINUS COMP/HENDRICKSON/BILAT EAR PAIN/X9 DAYS Sep e 2024 9:12am 3 M FU October 28, 2024 2:03p m Pain in right side of back. A week. Cont . December 17, 2024 12:47pm Reason for Visit Admit Date Falls October 28, 2024 2:03p m Anxiety and depression October 28, 2024 2: 03pm Hypertension October 28, 2024 2:03p m MOISES treated with BiPAP October 28, 2024 2: 03pm Type 2 diabetes mellitus October 28, 2024 2:03pm Chief Complaint Admit Date SINUS COMP/HENDRICKSON/BILAT EAR PAIN/X9 DAYS Sep 9:12am 3 M FU October 28, 2024 2:03p m Pain in right side of back. A week. Cont . December 17, 2024 12:47pm ANXIETY / DEPRESSION December 25, 2024 8 :06am Reason for Visit Admit Date Falls October 28, 2024 2:03p m Anxiety and depression October 28, 2024 2: 03pm Hypertension October 28, 2024 2:03p m MOISES treated with BiPAP October 28, 2024 2: 03pm Type 2 diabetes mellitus October 28, 2024 2:03pm Mass of lumbar region of back November 12:47pm Reason for Visit Admit Date Falls October 28, 2024 2:03p m Anxiety and depression October 28, 2024 2: 03pm Hypertension October 28, 2024 2:03p m MOISES treated with BiPAP October 28, 2024 2: 03pm Type 2 diabetes mellitus October 28, 2024 2:03pm Mass of lumbar region of back November 12:47pm Anxiety disorder with panic attacks Aug2024 8:06am Anxiety and depression December 25, 2024 8:06am PTSD (post-traumatic stress disorder) Au remberto 2024 8:06am Additional Source Comments (unrecognized sect ion and content) No Status Records FoundNo Status Records FoundNo Status Records FoundNo Status Records Found INFORMATION SOURCE (unrecogn ized section and content) DATE CREATED AUTHOR 03/19/2019 [facility] DATE CREATED AUTHOR AUTHOR'S ORGANIZ ATION 05/22/2021 [place] DATE CREATED AUTHOR AUTHOR'S ORGANIZ ATION 10/26/2022 [facility] ([place]) DATE CREATED AUTHOR AUTHOR'S ORGANIZ ATION 03/09/2025 [facility] Goals (unrecognized section and content) Goals may be documented in a n alternate sectionGoals may be documented in an alternate sectionGoals may be documented in an alternate section No data available for this sectionGoals may be documented in an alternate sectionGoals may be documented in an alternate sectionGoals may be documented in an alternate sectionGoals may be documented in an alternate sectionGoals may be documented in an alternate sectionGoals may be documented in an alternate sectionGoals may be documented in an alternate sectionGoals may be documented in an alternate sectionGoals may be documented in an alternate sectionGoals may be documented in an alternate section Care Teams (unrecognized sec tion and content) Team Status: Active Member Role Status Dates Dr. Wayne Ramírez MD Family Provider Active Dr. Hardeep Schafer DO Primary Care Provider Active Team Status: Inactive Member Role Status Dates Dr. Wayne Ramírez MD Primary Care Provider, Attending Provider Active Team Status: Inactive Member Role Status Dates Dr. Hardeep Schafer DO Primary Care Provider, Attendin g Provider Active Team Status: Active Member Role Status Dates Dr. Wayne Ramírez MD Family Provider Active Dr. Nito Canseco MD Primary Care Provider Active Team Status: Inactive Member Role Status Dates Dr. Wayne Ramírez MD Referring Provider Active Dr. Nito Canseco MD Attending Provider Active Dr. Hardeep Schafer DO Primary Care Provider Active Team Status: Inactive Member Role Status Dates Dr. Hardeep Schafer DO Referring Provider Active Dr. Nito Canseco MD Primary Care Provider, Atten ding Provider Active Team Status: Inactive Member Role Status Dates Dr. Nito Canseco MD Primary Care P rovider, Attending Provider, Referring Provider Active Team Status: Inactive Member Role Status Dates Dr. Nito Canseco MD Primary Care Provider, Atten ding Provider Active Team Status: Inactive Member Role Status Dates Dr. Nito Canseco MD Primary Care Provider, Refer ring Provider Active Corbin CHRISTIANSON PA Attending Provider Active Team Status: Inactive Member Role Status Dates Dr. Nito Canseco MD Primary Care Provider Active TRACEY SOARES Attending Provider, Referring Provider Active Team Status: Inactive Member Role Status Dates Dr. Nito Canseco MD Primary Care Provider Active Start: April 16, 2024 End: April 16, 2024 Dr. Nito Canseco MD Attending Provider Active Start: April 16, 2024 End: April 16, 2024 Dr. Nito Canseco MD Referring Provider Active Start: April 16, 2024 End: April 16, 2024 Team Status: Inactive Member Role Status Dates Dr. Nito Canseco MD Primary Care Provider Active Start: July 03, 2024 End: July 03, 2024 Dr. Nito Canseco MD Attending Provider Active Start: July 03, 2024 End: July 03, 2024 Dr. Nito Canseco MD Referring Provider Active Start: July 03, 2024 End: July 03, 2024 Team Status: Inactive Member Role Status Dates Dr. Nito Canseco MD Primary Care Provider Active Start: July 22, 2024 End: July 22, 2024 Dr. Nito Canseco MD Attending Provider Active Start: July 22, 2024 End: July 22, 2024 Dr. Nito Canseco MD Referring Provider Active Start: July 22, 2024 End: July 22, 2024 Team Status: Inactive Member Role Status Dates Dr. Nito Canseco MD Primary Care Provider Active Start: September 30, 2024 End: September 30, 2024 Dr. Nito Canseco MD Referring Provider Active Start: September 30, 2024 End: September 30, 2024 Corbin CHRISTIANSON PA Attending Provider Active Start: September 30, 2024 End: September 30, 2024 Team Status: Active Member Role/Relationship Status Dates Dr. Wayne Ramírez MD Family Provider Active Dr. Nito Canseco MD Primary Care Provider Active Team Status: Inactive Member Role/Relationship Status Dates Dr. Nito Canseco MD Primary Care Provider Active Start: July 03, 2024 End: July 03, 2024 Dr. Nito Canseco MD Attending Provider Active Start: July 03, 2024 End: July 03, 2024 Dr. Nito Canseco MD Referring Provider Active Start: July 03, 2024 End: July 03, 2024 Team Status: Inactive Member Role/Relationship Status Dates Dr. Nito Canseco MD Primary Care Provider Active Start: July 22, 2024 End: July 22, 2024 Dr. Nito Canseco MD Attending Provider Active Start: July 22, 2024 End: July 22, 2024 Dr. Nito Canseco MD Referring Provider Active Start: July 22, 2024 End: July 22, 2024 Team Status: Inactive Member Role/Relationship Status Dates Dr. Nito Canseco MD Primary Care Provider Active Start: September 30, 2024 End: September 30, 2024 Dr. Nito Canseco MD Referring Provider Active Start: September 30, 2024 End: September 30, 2024 SAMMY Ha Attending Provider Active Start: September 30, 2024 End: September 30, 2024 Team Status: Inactive Member Role/Relationship Status Dates Dr. Nito Canseco MD Primary Care Provider Active Start: October 28, 2024 End: October 28, 2024 Dr. Nito Canseco MD Attending Provider Active Start: October 28, 2024 End: October 28, 2024 Dr. Nito Canseco MD Referring Provider Active Start: October 28, 2024 End: October 28, 2024 Team Status: Inactive Member Role/Relationship Status Dates Dr. Nito Canseco MD Primary Care Provider Active Start: September 30, 2024 End: September 30, 2024 Dr. Nito Canseco MD Referring Provider Active Start: September 30, 2024 End: September 30, 2024 Corbin CHRISTIANSON PA Attending Provider Active Start: September 30, 2024 End: September 30, 2024 Team Status: Inactive Member Role/Relationship Status Dates Dr. Nito Canesco MD Primary Care Provider Active Start: October 28, 2024 End: October 28, 2024 Dr. Nito Canseco MD Attending Provider Active Start: October 28, 2024 End: October 28, 2024 Dr. Nito Canseco MD Referring Provider Active Start: October 28, 2024 End: October 28, 2024 Team Status: Inactive Member Role/Relationship Status Dates Dr. Nito Canseco MD Primary Care Provider Active Start: December 17, 2024 End: December 17, 2024 Dr. Nito Canseco MD Referring Provider Active Start: December 17, 2024 End: December 17, 2024 EBER Carmona Attending Provider Active Start: December 17, 2024 End: December 17, 2024 Team Status: Inactive Member Role/Relationship Status Dates Dr. Nito Canseco MD Primary Care Provider Active Start: December 25, 2024 End: December 25, 2024 Dr. Nito Canseco MD Attending Provider Active Start: December 25, 2024 End: December 25, 2024 Dr. Nito Canseco MD Referring Provider Active Start: December 25, 2024 End: December 25, 2024 Team Status: Active Member Role/Relationship Status Dates Dr. Nito Canseco MD Primary care physician Activ e Team Status: Inactive Member Role/Relationship Status Dates Dr. Nito Canseco MD Primary care physician Activ e Start: September 30, 2024 End: September 30, 2024 Dr. Nito Canseco MD Referring Provider Active Start: September 30, 2024 End: September 30, 2024 Corbin Llanes PA, PA Attending physician Active Start: September 30, 2024 End: September 30, 2024 Team Status: Inactive Member Role/Relationship Status Dates Dr. Nito Canseco MD Primary care physician Activ e Start: October 28, 2024 End: October 28, 2024 Dr. Nito Canseco MD Attending physician Active Start: October 28, 2024 End: October 28, 2024 Dr. Nito Canseco MD Referring Provider Active Start: October 28, 2024 End: October 28, 2024 Team Status: Inactive Member Role/Relationship Status Dates Dr. Nito Canseco MD Primary care physician Activ e Start: December 17, 2024 End: December 17, 2024 Dr. Nito Canseco MD Referring Provider Active Start: December 17, 2024 End: December 17, 2024 EBER Carmona Attending physician Active Start: December 17, 2024 End: December 17, 2024 Team Status: Inactive Member Role/Relationship Status Dates Dr. Nito Canseco MD Primary care physician Activ e Start: December 25, 2024 End: December 25, 2024 Dr. Nito Canseco MD Attending physician Active Start: December 25, 2024 End: December 25, 2024 Dr. Nito Canseco MD Referring Provider Active Start: December 25, 2024 End: December 25, 2024 Team Status: Inactive Member Role/Relationship Status Dates Dr. Nito Canseco MD Primary care physician Activ e Start: January 04, 2025 End: January 04, 2025 Dr. Nito Canseco MD Attending physician Active Start: January 04, 2025 End: January 04, 2025 Dr. Nito Canseco MD Referring Provider Active Start: January 04, 2025 End: January 04, 2025 FOR RECORDS PERTAINING TO PATIENTS WHO ARE [...] BE BASED ON THE PRIMARY CLINICAL RECORDS. [facility] Content Synd[employer]: [employer] provides no warranty or guarantee of the accuracy or completeness of information in this document.
== END | disposition home or self-care (01) ==
LOC: OPMRI 07:53
PROVIDERS: PCP Internal Medicine; Referring Provider Surgery; Visit Provider Surgery
DX: R22.2 Localized swelling, mass and lump, trunk (principal)
CPT/HCPCS: 72197; A9575